=== PATIENT | male | born 1945 | race Caucasian/White ===

== ENCOUNTER 2018-01-01 11:10 | Inpatient (IN) ==
--- NOTE | 2018-01-01 13:56 | Internal Med History&Physical ---
Date of Encounter: 01/01/18 Time of Encounter: 13:49 Internal Medicine - H&P: HPI Chief complaint: diabetic foot ulcer Admitted From: Intrahospital Transfer Plans for Post Hospital Care: Home History of present illness: Mr. Donis is a 72 year old male who presented to [facility] via EMS with fevers and chills. PMHx paraplegia, due to have leg amputated this week, recurrent utis, DM, HTN, cad with hx stent 2007 Pt had concern for uti given hx of same,recent lower abd pain worse from baseline chronic lower abd pain, bladder spasms fever of at home and chills. Urine darker colored than usual and cloudy. He also noted several non healing ulcers on left leg and non healing tibial fracture from August now requiring amputation that was scheduledwith Dr Parker for 01/05. He has been on Augmentin for ulcers since 12/22. Also noted cough x2 weeks with clear sputum. Found to have left heel wound with necrosis, possible supra pubic catheter assoicated uti and LLL pna and transferred to [facility]. He has hx of systolic murmur and on ED physician exam there was concern for heart sounds c/w pericardial rub, bedisde echo done and no pericardial effusion. He received vanco at 1235p, levaquin at 1030 am, bl cxs sent awake, family at bedside. He is feeling better now without fever or chills. No nausea or emesis. Has overall felt "unwell". His lower abd pain appears to be at baseline and he is currently comfortable. no nausea, emesis or diarrhea. supra pubic cath in place, no leakage and with reports some direid "crusted yellow" around the cath this week but was just changed last week. Copious left heel drainage yellow and bloody per . He has no pain due to paraplegia. pulm- cough, clear sputum, denies wheezing, sob, orthopnea or pnd cv- no cp, pressure, palpitations, orthopnea, new le edema, presyncope or syncope Past Med Surg Social Fam HX - Past Medical History Medical history: diabetes, hypertension, myocardial infarction Additional medical history: LOWER BODY PARALYSIS, left tibial fracture August 2017, non lealed, and displaced, left lower ext ulcers Psychiatric history: no psych history - Past Surgical History Surgical History: knee replacement, orthopedic, other Additional surgical history: cardiac stents 2008 - Social History Smoking Status: Never smoker Smokeless Tobacco Status: No Alcohol use: rarely Drug use: none Current living situation: With Family - Family History Mother Adopted: No Family Member Ethnicity: Non- Living Status: Father Adopted: No Family Member Ethnicity: Non- Living Status: Hx Family Cardiac Disorders: No Hx Family Respiratory Disorders: Yes Hx Family Cancer: Yes (metastatic cancer) Hx Family Endocrine Disorder: No Hx Family Neuromuscular Disorders: No Hx Family Neurologic Disorders: No Hx Family HEENT Disorders: No Hx Family Autoimmune Disorders: No Internal Medicine - H&P: Meds Amitriptyline [Elavil] 50 mg PO HS 03/26/16 [History] Aspirin 81 mg PO DAILY 03/26/16 [History] Atorvastatin Calcium [Lipitor] 80 mg PO HS 03/26/16 [History] Clopidogrel [Plavix] 75 mg PO DAILY 03/26/16 [History] Gabapentin [Neurontin] 600 mg PO TID 03/26/16 [History] Metoprolol XL (24 HR) Succ [Toprol Xl] 25 mg PO DAILY 03/26/16 [History] Ranitidine HCl [Acid Lead Sprinkler] 150 mg PO HS 03/26/16 [History] Sertraline [Zoloft] 50 mg PO HS 03/26/16 [History] hydroCHLOROthiazide [Hydrochlorothiazide] 25 mg PO DAILY 03/26/16 [History] metFORMIN [Glucophage] 250 mg PO BIDWM 03/26/16 [History] Calcium Crb,Cit/D3/Min34/Sana [Citracal + Bone Density Tablet] 2 each PO DAILY 11/23/17 [History] Collagenase Oint [Santyl] 1 appl TP DAILY 11/23/17 [History] Famotidine [Pepcid] 20 mg PO DAILY 11/23/17 [History] Potassium Chloride [Klor-Con 10] 10 meq PO DAILY 11/23/17 [History] Allergy/AdvReac Type Severity Reaction Status Date / Time bacitracin Allergy Blister Verified 07/02/16 10:41 [From Neosporin ([id number])] Neomycin Allergy Blister Verified 12/23/17 15:04 [From Neosporin ([id number])] polymyxin B Allergy Blister Verified 07/02/16 10:41 [From Neosporin ([id number])] All Systems PM: A 10-system review of systems was performed and is negative for pertinent findings except as documented above in the HPI. - Constitutional Vitals: Temp Pulse Resp BP Pulse Ox 98.3 F 90 17 112/78 93 01/01/18 13:25 01/01/18 13:25 01/01/18 13:25 01/01/18 13:25 01/01/18 13:25 Exam: General: awake, alert, appears stated age HEENT:EOM intact, pupils equal, round, moist mucus membranes, clear oropharynx Neck: supple, trachea midline Cardiovascular:regular rate and rhythm, normal S1 & S2, +4/6 SM. No JVD. DP pulses intact, trace bl le edema, Lungs:Normal breath sounds, no wheezes, or crackles. Normal respiratory effort on room air Abdomen:Soft, non-tender, non-distended, no rigidity, + bowel sounds, + supra pubic cath in place Neurological: AAOx3, CN grossly intact, paraplegia bl le - suprapubic cath with drak yellow urine, not cloudy no sediment appreciated, no drainage around catheter site Skin: supra pubic cath site skin normal no erythme, warmth or drainage. LLE with big toe ulcer with eschar no surrounding erythema, no appreciable drainage, left heal completely covered with black eschar and posteriorly open wound draining yellow pus and blood with foul odor, surrounding erythema, cannot appreciate fluctuance, left hin with small wounds , eschars intact, bone not appreciated to be protruding, no erythema, warmth or drainage. - Assessment and plan (1) Infected wound Current Visit: Yes Status: Acute Assessment and plan: left heel wound, infected, known ulcer, previously noted to be diabetic and pressure ulcer related he does nto meet for SIRS or sepsis criteria at this time follows with Dr Parker- theodore d/w Dr Garcia and will see pt today -wound cxs -was scheduled for left AKA 01/05/18 -vanc + zosyn + levaquin -bl cxs taken at [facility] -anticipate AKA (2) Diabetes mellitus Current Visit: Yes Status: Chronic Assessment and plan: hold home metformin ssi and accu checks and prn hypoglycemics Qualifiers: Diabetes mellitus type: type 2 Diabetes mellitus nursing home insulin use: without termite treater use Diabetes mellitus complication status: with skin complications Diabetes mellitus complication detail: with foot ulcer Qualified Code(s): E11.621 - Type 2 diabetes mellitus with foot ulcer; L97.509 - Non-pressure chronic ulcer of other part of unspecified foot with unspecified severity (3) Left lower lobe pneumonia Current Visit: No Status: Suspected Assessment and plan: CXR at [facility] with possble LLL pna vs atelectasis, given presentation will treat as such, organism unknown at this time -abx as above, nebs prn, no need for steroids at this time, mild sxs, o2 prn -check legionella and strep ag + sputum cx Qualifiers: Pneumonia type: due to unspecified organism (4) UTI (urinary tract infection) Current Visit: Yes Status: Suspected Assessment and plan: Suspected chronic catheter associated UTI vs colonization -given presentation will treat as infection until proven otherwise -ucx sent at [facility] pending -follows with Dr Ly and will consult to see pt tomorrow -prior ucx available for review was one from June 2015 C freundii and sensitivities reviewed -broad abx as above, vanc, zosyn, levaquin Qualifiers: Urinary tract infection type: catheter-associated UTI Indwelling urinary catheter type: cystostomy catheter Encounter type: initial encounter Qualified Code(s): T83.510A - Infection and inflammatory reaction due to cystostomy catheter, initial encounter; N39.0 - Urinary tract infection, site not specified (5) Paraplegia Current Visit: Yes Status: Chronic Assessment and plan: paralyzed below the waist after a fall accident with vertebral fractures, salma barry, pressure ulcers and sacral osteomyelitis as complications (6) CAD (coronary artery disease) Current Visit: Yes Status: Chronic Assessment and plan: appears stable, no complaints cont home meds Qualifiers: Coronary Disease-Associated Artery/Lesion type: unspecified vessel or lesion type [place] vs. transplanted heart: [place] heart Associated angina: without angina Qualified Code(s): I25.10 - Atherosclerotic heart disease of [place] coronary artery without angina pectoris (7) HTN (hypertension) Current Visit: Yes Status: Chronic Assessment and plan: Normotensive cont to monitor bp trends hold antihypertensives tonight and resume daily Qualifiers: Hypertension type: unspecified Qualified Code(s): I10 - Essential (primary) hypertension - Time Spent With Patient Total time spent is greater than 50% in coordination of care (as documented) at patient's floor/unit and/or counseling patient: Greater than 35 minutes
[2018-01-01] MEDS ORDERED: *HR* Dextrose 50 % in Water (Syg) 50 ML SYRINGE IVP PRN (14:05)
[2018-01-01] MEDS ORDERED: Dextrose Gel 15 GM/37.5 ML TUBE PO PRN ×2 (14:05)
[2018-01-01] MEDS ORDERED: D5% in Water 1,000 ML IVC PRN (14:05)
[2018-01-01] MEDS ORDERED: *HR* OxyCODONE Immed Rel 5 MG TABLET PO PRN (14:41)
[2018-01-01] MEDS ORDERED: traMADol 50 MG TABLET PO PRN (14:41)
[2018-01-01] MEDS ORDERED: Naloxone 0.4 MG/ML INJ IVP PRN (14:41)
[2018-01-01] MEDS ORDERED: Acetaminophen 325 MG TABLET PO PRN (14:41)
[2018-01-01] MEDS ORDERED: Ipratropium/Albuterol Neb 3 ML IH PRN (14:53)
[2018-01-01] MEDS ORDERED: Vancomycin 0 MG in 0.9 % Sodium Chloride 250 ML IVPB SCH (15:00)
[2018-01-01] MEDS ORDERED: Ondansetron 4 MG/2 ML VIAL IVP PRN (15:07)
[2018-01-01] MEDS: Piperacillin/Tazobactam 3.375 GM in 0.9 % Sodium Chloride Mini Bag 100 ML IVPB SCH (16:53)
[2018-01-01] MEDS: Insulin LISPRO 300 UNITS/3 ML VIAL SQ SCH ×2 (17:49→20:30)
[2018-01-01] MEDS: Gabapentin 300 MG CAPSULE PO SCH (20:27)
[2018-01-02] MEDS: Piperacillin/Tazobactam 3.375 GM in 0.9 % Sodium Chloride Mini Bag 100 ML IVPB SCH ×3 (00:56→16:28)
[2018-01-02 04:36] LABS: Basophils % 0.5 %; Eosinophils % 0.3 %; Hematocrit 28.1 % (37.5-50.1); Hemoglobin 8.5 g/dL (12.9-16.9); Immature Granulocytes % 1.3 % (0-4); Lymphocytes % 15.8 %; Mean Corpuscular HGB Conc 30.2 g/dL (31.6-35.5); Mean Corpuscular Hemoglobin 20.6 pg (28.0-33.3); Mean Corpuscular Volume 68.2 fL (83.0-100.0); Mean Platelet Volume 8.4 fL (9.4-12.4); Monocytes # 0.6 K/mcL (0.0-1.3); Monocytes % 10.2 %; Neutrophils # 4.5 K/mcL (1.6-8.9); Platelet Count 511 K/mcL (140-400); Red Blood Count 4.12 M/mcL (4.19-5.50); Red Cell Distribution Width 17.5 % (11.5-14.5); Segmented Neutrophils % 71.9 %
[2018-01-02 04:53] LABS: INR 1.3; Prothrombin Time 14.9 Seconds (9.4-12.1)
[2018-01-02 04:54] LABS: BUN/Creatinine Ratio 23 (6-26); Blood Urea Nitrogen 14 mg/dL (8-23); Calcium 8.6 mg/dL (8.6-10.3); Carbon Dioxide 30 mEq/L (23-29); Chloride 93 mEq/L (98-107); Glucose 132 mg/dL (70-105); Magnesium 1.9 mg/dL (1.6-2.6); Osmolality,Calculated 270 (280-300); Potassium 3.7 mEq/L (3.5-5.1); Sodium 129 mEq/L (136-145); eGFR For Non-African Americans > 60 (> 60)
[2018-01-02 04:55] LABS: Activated Partial Thrombo Time 30.5 Seconds (26.0-36.0)
[2018-01-02 06:09] LABS: Anisocytosis 1+ (Not Present); Hypochromasia Present (Not Present); Microcytosis Present (Not Present); Platelet Estimate Increased (Normal)
[2018-01-02] MEDS: Insulin LISPRO 300 UNITS/3 ML VIAL SQ SCH ×3 (08:02→23:52)
[2018-01-02] MEDS: Levofloxacin 750 MG/150 ML 750 MG/150 ML BAG IVPB SCH (08:13)
[2018-01-02] MEDS: Gabapentin 300 MG CAPSULE PO SCH ×3 (08:15→21:02)
--- NOTE | 2018-01-02 08:21 | General Surgery Consult Note ---
<Aj Haynes S - Last Filed: 01/02/18 08:02> Date of Encounter: 01/02/18 Time of Encounter: 08:02 Assessment and Plan (1) Infected wound Current Visit: Yes Status: Acute Left big toe and heel open wounds with black eschars S/p paraplegia and diabetes mellitus Patient on levofloxacin (day 1), Zosyn (day 2), and Vancomycin (day 2) Wound care following WBC 6.3 Afebrile overnight, temp 99.5 now Scheduled to have left leg above the knee amputation by Dr. Parker on 01/05 Will reschedule surgery for tomorrow (01/03) (2) Urinary tract infection Current Visit: Yes Status: Acute Per primary Has permanent suprapubic catheter Susected catheter associated UTI On zosyn, vanc, and levaquin Urine cultures Qualifiers: Urinary tract infection type: catheter-associated UTI Qualified Code(s): T83.510A - Infection and inflammatory reaction due to cystostomy catheter, initial encounter; N39.0 - Urinary tract infection, site not specified (3) Left lower lobe pneumonia Current Visit: No Status: Suspected Per primary On Levaquin, vanc, and zosyn nebs PRN check legionella and strep pneumo antigen Sputum culture - ngtd Qualifiers: Pneumonia type: due to unspecified organism Qualified Code(s): J18.1 - Lobar pneumonia, unspecified organism (4) Diabetes mellitus Current Visit: Yes Status: Chronic Per primary Held metformin SSI and glucose checks Qualifiers: Diabetes mellitus type: type 2 Diabetes mellitus long line teamster insulin use: without long line teamster use Diabetes mellitus complication status: with skin complications Diabetes mellitus complication detail: with foot ulcer Qualified Code(s): E11.621 - Type 2 diabetes mellitus with foot ulcer; L97.509 - Non-pressure chronic ulcer of other part of unspecified foot with unspecified severity (5) HTN (hypertension) Current Visit: Yes Status: Chronic Per primary Normotensive Qualifiers: Hypertension type: unspecified Qualified Code(s): I10 - Essential (primary) hypertension (6) CAD (coronary artery disease) Current Visit: Yes Status: Chronic Per primary Continue home meds No complaints Qualifiers: Coronary Disease-Associated Artery/Lesion type: unspecified vessel or lesion type [place] vs. transplanted heart: [place] heart Associated angina: without angina Qualified Code(s): I25.10 - Atherosclerotic heart disease of [place] coronary artery without angina pectoris (7) Paraplegia Current Visit: Yes Status: Chronic Per primary Paralyzed below waist after a fall Per notes, patient developed sacral osteomyelitis as a complication History of Present Illness Consult date: 01/02/18 Reason for consult: other (infected diabetic foot ulcer) Requesting physician: Troy Parker History of present illness: 72 year old male with PMHx of paraplegia, DM, HTN, [place] presented to [facility] with fevers and chills. He was transferred to [place] for left heel necrosis, possible suprapubic catheter associated UTI, and LLL PNA. Patient is scheduled to have leg amputated this week on 01/05. He admits to several non- healing ulcers on his left leg and a non-healing tibial fracture in August. He as been taking Augmentin for his ulcers since 12/22. He received vancomycin and zosyn. Patient doing well this morning. Patient states his abdominal pain is back at baseline. He denies fevers/chills, CP, SOB, leg pain (due to paraplegia). Past Med Surg Social Fam HX - Past Medical History Medical history: diabetes, hypertension, myocardial infarction Additional medical history: LOWER BODY PARALYSIS, left tibial fracture August 2017, non lealed, and displaced, left lower ext ulcers Psychiatric history: no psych history - Past Surgical History Surgical History: knee replacement, orthopedic, other Additional surgical history: cardiac stents 2007 - Social History Smoking Status: Never smoker Smokeless Tobacco Status: No Alcohol use: rarely Drug use: none - Family History Father Adopted: No Family Member Ethnicity: Non- Living Status: Hx Family Cardiac Disorders: No Hx Family Respiratory Disorders: Yes Hx Family Cancer: Yes (metastatic cancer) Hx Family Endocrine Disorder: No Hx Family Neuromuscular Disorders: No Hx Family Neurologic Disorders: No Hx Family HEENT Disorders: No Hx Family Autoimmune Disorders: No Mother Adopted: No Family Member Ethnicity: Non- Living Status: Medications and Allergies RX: Amitriptyline [Elavil] 50 mg PO HS 03/26/16 [History] RX: Gabapentin [Neurontin] 1,200 mg PO TID 03/26/16 [History] RX: Metoprolol XL (24 HR) Succ [Toprol Xl] 25 mg PO DAILY 03/26/16 [History] RX: Sertraline [Zoloft] 50 mg PO HS 03/26/16 [History] RX: hydroCHLOROthiazide [Hydrochlorothiazide] 25 mg PO DAILY 03/26/16 [History] RX: metFORMIN [Glucophage] 250 mg PO BIDWM 03/26/16 [History] RX: Potassium Chloride [Klor-Con 10] 10 meq PO DAILY 11/23/17 [History] Aspirin [Adult Aspirin Regimen] 81 mg PO DAILY 01/02/18 [History] Atorvastatin [Lipitor] 80 mg PO HS 01/02/18 [History] RX: Clopidogrel [Plavix] 1 tab PO DAILY 01/02/18 [History] RX: Famotidine [Pepcid] 20 mg PO HS 01/02/18 [History] RX: Nitroglycerin [Nitrostat] 1 tab SL Q5MIN PRN 01/02/18 [History] RX: Omeprazole [PriLOSEC] 40 mg PO DAILY 01/02/18 [History] raNITIdine HCl [Zantac] 150 mg PO HS 01/02/18 [History] Allergy/AdvReac Type Severity Reaction Status Date / Time bacitracin Allergy Blister Verified 07/02/16 10:41 [From Neosporin ([id number])] Neomycin Allergy Blister Verified 12/23/17 15:04 [From Neosporin ([id number]-[id number])] polymyxin B Allergy Blister Verified 07/02/16 10:41 [From Neosporin ([id number])] Review of Systems All systems PM: The remainder of the systems were reviewed and are negative General Surgery Exam Initial Vital Signs Temp Pulse Resp BP Pulse Ox 98.3 F 90 17 112/78 93 01/01/18 13:25 01/01/18 13:25 01/01/18 13:25 01/01/18 13:25 01/01/18 13:25 - General physical appearance well developed - Respiratory normal expansion, normal respiratory effort - Cardiovascular Cardiovascular exam: Present: RRR - Abdomen Abdomen general surgery: Present: bowel sounds present, soft, non tender - Genitourinary Present: other (Suprapubic catheter with dark yellow urine) - Integumentary Integumentary general surgery: Present: other (left foot with ulcer on big toe with surrounding eschar, left heel open wound with surrounding black eschar, foul odor ) - Neurologic Present: other (paraplegic lower extremities bilaterally) - Psychiatric Psychiatric general surgery: Present: A&Ox3, appropriate Exam Initial Vital Signs Temp Pulse Resp BP Pulse Ox 98.3 F 90 17 112/78 93 01/01/18 13:25 01/01/18 13:25 01/01/18 13:25 01/01/18 13:25 01/01/18 13:25 Results - Labs 01/02/18 04:01 01/02/18 04:01 Abnormal lab results RBC 4.12 M/mcL (4.19-5.50) L 01/02/18 04:01 Hgb 8.5 g/dL (12.9-16.9) L 01/02/18 04:01 Hct 28.1 % (37.5-50.1) L 01/02/18 04:01 MCV 68.2 fL (83.0-100.0) L 01/02/18 04:01 MCH 20.6 pg (28.0-33.3) L 01/02/18 04:01 MCHC 30.2 g/dL (31.6-35.5) L 01/02/18 04:01 RDW 17.5 % (11.5-14.5) H 01/02/18 04:01 Plt Count 511 K/mcL (140-400) H 01/02/18 04:01 MPV 8.4 fL (9.4-12.4) L 01/02/18 04:01 Platelet Estimate Increased (Normal) H 01/02/18 04:01 Hypochromasia Present (Not Present) A 01/02/18 04:01 Anisocytosis 1+ (Not Present) A 01/02/18 04:01 Microcytosis Present (Not Present) A 01/02/18 04:01 PT 14.9 Seconds (9.4-12.1) H 01/02/18 04:01 Sodium 129 mEq/L (136-145) L 01/02/18 04:01 Chloride 93 mEq/L (98-107) L 01/02/18 04:01 Carbon Dioxide 30 mEq/L (23-29) H 01/02/18 04:01 Creatinine 0.61 mg/dL (0.70-1.30) L 01/02/18 04:01 Glucose 132 mg/dL (70-105) H 01/02/18 04:01 POC Glucose 148 mg/dL (70-99) H 01/01/18 20:12 Calculated Osmolality 270 (280-300) L 01/02/18 04:01 Diabetes panel 01/02/18 Range/Units 04:01 Sodium 129 L (136-145) mEq/L Potassium 3.7 (3.5-5.1) mEq/L Chloride 93 L (98-107) mEq/L Carbon Dioxide 30 H (23-29) mEq/L BUN 14 (8-23) mg/dL Creatinine 0.61 L (0.70-1.30) mg/dL Glucose 132 H (70-105) mg/dL Calcium 8.6 (8.6-10.3) mg/dL Calcium panel 01/02/18 Range/Units 04:01 Calcium 8.6 (8.6-10.3) mg/dL Pituitary panel 01/02/18 Range/Units 04:01 Sodium 129 L (136-145) mEq/L Potassium 3.7 (3.5-5.1) mEq/L Chloride 93 L (98-107) mEq/L Carbon Dioxide 30 H (23-29) mEq/L BUN 14 (8-23) mg/dL Creatinine 0.61 L (0.70-1.30) mg/dL Glucose 132 H (70-105) mg/dL Calcium 8.6 (8.6-10.3) mg/dL Adrenal panel 01/02/18 Range/Units 04:01 Sodium 129 L (136-145) mEq/L Potassium 3.7 (3.5-5.1) mEq/L Chloride 93 L (98-107) mEq/L Carbon Dioxide 30 H (23-29) mEq/L BUN 14 (8-23) mg/dL Creatinine 0.61 L (0.70-1.30) mg/dL Glucose 132 H (70-105) mg/dL Calcium 8.6 (8.6-10.3) mg/dL All other labs normal. Consult Discharge Plan - Plan Referrals: NONE,PCP [Primary Care Provider] - <Troy Parker - Last Filed: 01/04/18 07:00> Review of Systems All systems PM: The remainder of the systems were reviewed and are negative General Surgery Exam Initial Vital Signs Temp Pulse Resp BP Pulse Ox 98.3 F 90 17 112/78 93 01/01/18 13:25 01/01/18 13:25 01/01/18 13:25 01/01/18 13:25 01/01/18 13:25 Exam Initial Vital Signs Temp Pulse Resp BP Pulse Ox 98.3 F 90 17 112/78 93 01/01/18 13:25 01/01/18 13:25 01/01/18 13:25 01/01/18 13:25 01/01/18 13:25 Results - Labs 01/04/18 04:07 01/04/18 04:07 Abnormal lab results RBC 3.48 M/mcL (4.19-5.50) L 01/04/18 04:07 Hgb 7.2 g/dL (12.9-16.9) L 01/04/18 04:07 Hct 23.6 % (37.5-50.1) L 01/04/18 04:07 MCV 67.8 fL (83.0-100.0) L 01/04/18 04:07 MCH 20.7 pg (28.0-33.3) L 01/04/18 04:07 MCHC 30.5 g/dL (31.6-35.5) L 01/04/18 04:07 RDW 18.1 % (11.5-14.5) H 01/04/18 04:07 Plt Count 427 K/mcL (140-400) H 01/04/18 04:07 MPV 8.5 fL (9.4-12.4) L 01/04/18 04:07 Neutrophils # 9.2 K/mcL (1.6-8.9) H 01/04/18 04:07 Platelet Estimate Increased (Normal) H 01/04/18 04:07 Hypochromasia Present (Not Present) A 01/02/18 04:01 Anisocytosis 2+ (Not Present) A 01/04/18 04:07 Microcytosis Present (Not Present) A 01/04/18 04:07 PT 14.9 Seconds (9.4-12.1) H 01/02/18 04:01 Sodium 132 mEq/L (136-145) L 01/04/18 04:07 Creatinine 1.41 mg/dL (0.70-1.30) H 01/04/18 04:07 Est GFR (Non-Af Amer) 49 (> 60) L 01/04/18 04:07 Glucose 180 mg/dL (70-105) H 01/04/18 04:07 POC Glucose 256 mg/dL (70-99) H 01/03/18 20:11 Hemoglobin A1c 7.1 % (-5.6) H 01/01/18 14:47 Calcium 7.8 mg/dL (8.6-10.3) L 01/04/18 04:07 Iron < 10 mcg/dL (65-175) L 01/02/18 16:59 Transferrin 167 mg/dL (203-362) L 01/02/18 16:59 Vancomycin Trough 31 mcg/mL (5-10) H 01/03/18 19:00 Diabetes panel 01/04/18 Range/Units 04:07 Sodium 132 L (136-145) mEq/L Potassium 3.7 (3.5-5.1) mEq/L Chloride 98 (98-107) mEq/L Carbon Dioxide 27 (23-29) mEq/L BUN 19 (8-23) mg/dL Creatinine 1.41 H (0.70-1.30) mg/dL Glucose 180 H (70-105) mg/dL Calcium 7.8 L (8.6-10.3) mg/dL Calcium panel 01/04/18 Range/Units 04:07 Calcium 7.8 L (8.6-10.3) mg/dL Pituitary panel 01/04/18 Range/Units 04:07 Sodium 132 L (136-145) mEq/L Potassium 3.7 (3.5-5.1) mEq/L Chloride 98 (98-107) mEq/L Carbon Dioxide 27 (23-29) mEq/L BUN 19 (8-23) mg/dL Creatinine 1.41 H (0.70-1.30) mg/dL Glucose 180 H (70-105) mg/dL Calcium 7.8 L (8.6-10.3) mg/dL Adrenal panel 01/04/18 Range/Units 04:07 Sodium 132 L (136-145) mEq/L Potassium 3.7 (3.5-5.1) mEq/L Chloride 98 (98-107) mEq/L Carbon Dioxide 27 (23-29) mEq/L BUN 19 (8-23) mg/dL Creatinine 1.41 H (0.70-1.30) mg/dL Glucose 180 H (70-105) mg/dL Calcium 7.8 L (8.6-10.3) mg/dL All other labs normal. - Attending Attestation I examined this patient and my medical decision-making was reviewed with the Resident Physician. I agree with the documented findings, disposition and treatment plan as described except to the extent set forth below. The patient is seen and evaluated with the resident on morning rounds. The patient has an infected foot plus nonunion of tibial fibular fracture. He is nonambulatory and paraplegic. I have recommended left above-knee amputation and we will proceed tomorrow after appropriate antibiotic dosing Troy Parker MD FACS
[2018-01-02] MEDS ORDERED: Aspirin 81 MG TAB.CHEW PO SCH (09:00)
--- NOTE | 2018-01-02 09:14 | Internal Med Progress Note ---
<Africa Mendoza - Last Filed: 01/02/18 13:57> Hospitalist Progress Note - Exam Vitals: Temp Pulse Resp BP Pulse Ox 98.2 F 96 15 120/56 94 01/02/18 13:00 01/02/18 13:00 01/02/18 13:00 01/02/18 13:00 01/02/18 13:00 - Assessment and Plan (1) UTI (urinary tract infection) Current Visit: Yes Status: Suspected (2) Left lower lobe pneumonia Current Visit: No Status: Suspected (3) Infected wound Current Visit: Yes Status: Acute (4) Diabetes mellitus Current Visit: Yes Status: Chronic (5) HTN (hypertension) Current Visit: Yes Status: Chronic (6) CAD (coronary artery disease) Current Visit: Yes Status: Chronic (7) Paraplegia Current Visit: Yes Status: Chronic (8) Anemia Current Visit: Yes Status: Acute - Time Spent with Patient Total time spent is greater than 50% in coordination of care (as documented) at patient's floor/unit and/or counseling patient: Internal Medicine: Result - Labs CBC & Chem 7: 01/02/18 04:01 01/02/18 04:01 Labs: Short CBC 01/02/18 Range/Units 04:01 WBC 6.3 (4.3-11.1) K/mcL Hgb 8.5 L (12.9-16.9) g/dL Hct 28.1 L (37.5-50.1) % Plt Count 511 H (140-400) K/mcL Neutrophils # 4.5 (1.6-8.9) K/mcL BMP 01/02/18 04:01 Sodium 129 L Potassium 3.7 Chloride 93 L Carbon Dioxide 30 H BUN 14 Creatinine 0.61 L Glucose 132 H Calcium 8.6 - ABG Interpretation ABG results: PT/INR, D-dimer PT 14.9 Seconds (9.4-12.1) H 01/02/18 04:01 - Impressions Impressions Foot X-Ray 01/02/18 08:55 IMPRESSION: 1. There appears to be a wound along the hindfoot with irregularity of the posterior calcaneus. Findings could represent osteomyelitis. 2. A prior fractures seen of the distal fibula with partial callus formation. An intramedullary jose is seen within the distal tibia. 3. Osteopenia. 4. Scattered degenerative changes. D/ / Austin Martin MD / Austin Martin MD Interpreting Provider: Austin Martin MD Consult Discharge Plan - Plan Referrals: NONE,PCP [Primary Care Provider] - - Attending Attestation I examined this patient and my medical decision-making was reviewed with the Resident Physician Dr Acuña. I agree with the documented findings, disposition and treatment plan as described except to the extent set forth below/addl details below. Mr. Donis is a 72 year old male who presented to [facility] via EMS with fevers and chills. PMHx paraplegia, due to have leg amputated this week, recurrent utis, DM, HTN, cad with hx stent 2007. Dx with left heel infected ulcer, possible pna and possible supra pubic cath associated uti. Being followed by Surgery. awake, at bedside. no fevers or chills overnight. overall feeling less fatigued. no pain. no nausea or emesis. eating and drinking without difficulty. General: awake, alert, appears stated age Cardiovascular:regular rate and rhythm, normal S1 & S2, +4/6 SM. trace bl le edema, Lungs:Normal breath sounds, no wheezes, or crackles. Normal respiratory effort on room air Abdomen:Soft, non-tender, non-distended, no rigidity, + bowel sounds, + supra pubic cath in place Neurological: AAOx3, paraplegia bl le Skin: supra pubic cath site skin normal no erythma, warmth or drainage. LLE with big toe ulcer with eschar no surrounding erythema, no appreciable drainage, left heel dressing clean/dry/intact left heel wound, infected, known ulcer, previously noted to be diabetic and pressure ulcer related he does not meet for SIRS or sepsis criteria at this time follows with Dr Parker- surg following -wound cxs -vanc + zosyn + levaquin -bl cxs taken at [place] -anticipate AKA tomorrow, hold asa + plavix, hold heparin vte ppx today DM-hold home metformin, ssi and accu checks LLL Possible Pna CXR at [facility] with possble LLL pna vs atelectasis, given presentation will treat as such, organism unknown at this time -abx as above, nebs prn, no need for steroids at this time, mild sxs, o2 prn -legionella and strep ag neg, sputum cx did not meet criteria for cx Suspected chronic catheter associated UTI vs colonization -given presentation will treat as infection until proven otherwise -ucx sent at [facility] pending on admit and now not showing in [employer], will have to re send cx which is unfortunate given he has received abx -follows with Dr Sanchez and will consult post operatively and once Ucx resu lts as needed -prior ucx available for review was one from June 2015 C freundii and sen sitivities reviewed -broad abx as above, vanc, zosyn, levaquin HTN- his home bp meds were held on admit as had not yet been confirmed and BPs were normotensive. resume BB in prep for OR, cont to monoitor bp trends and add back hctz as needed Acute on Chronic anemia suspected to be 2/2 bleeding from foot wound on asa + plavix hgb [id number], 9.5 at [facility] and 8.5 today -holding asa + plavix -no pharm vte ppx, scd to right leg -cont to monitor hgb and transfuse hgb <7 -cont to monitor for other signs of bleeding, at this time there are none <Arjun Acuña - Last Filed: 01/02/18 16:26> Hospitalist Progress Note - Encounter Date of Encounter: 01/02/18 Time of Encounter: 09:50 - Subjective Interval History: Laying comfortably in bed. He complains of a suprapubic pressure today and says has not had BM in 2 days. He denies subjective fever/chills, cough, sob, pleuritic chest pain. - Exam Vitals: Temp Pulse Resp BP Pulse Ox 99.5 F 95 20 126/87 92 01/02/18 04:56 01/02/18 04:56 01/02/18 04:56 01/02/18 04:56 01/02/18 04:56 Exam: General: Awake, alert, appears stated age, no signs of acute distress or toxicity HEENT: EOMi, pupils equal/round, mucus membranes moist, neck supple and without lymphadenopathy Cardiac: RRR, S1/S2 present, 4/6 systolic ejection murmur, no heaves, thrills appreciated, radial pulse 2+ bilaterally, normal capillary refill, no peripheral edema Chest: Symmetric chest rise, non tender Pulmonary: Good air movement, normal resp effort, no wheezes, rhonchi, rales appreciated Abdominal: Soft, tender to palpation suprapubically, no distention, guarding, rebound tenderness, or rigidity Neuro: AOx3, CN grossly intact Psych: Normal affect Integumentary: [place], warm, dry, L foot bandaged and draining purulent fluid through bandage, 2 small black eschar on L great toe and L plantar surface, developing ulcer R lateral lower leg. - Assessment and Plan (1) Infected wound Current Visit: Yes Status: Acute Assessment and Plan: Infected ulcer L heal. Noted to be diabetic/pressure ulcer previously -Dr Parker follows -Wound care following -Blood cultures x2 ngtd -Tmax 99.5, wbc 6.3 -L AKA tomorrow via [place] -On vanc, zosyn, levaquin -NPO at midnight for AKA tomorrow (2) UTI (urinary tract infection) Current Visit: Yes Status: Suspected Assessment and Plan: Suspected chronic catheter associated UTI vs colonization -Suprapubic catheter 2/2 paraplegia -On vanc, zosyn, levaquin -[place] urine culture will need to be resent today. -Urology follows and sees Dr Sanchez, will consult after culture resulted. (3) Left lower lobe pneumonia Current Visit: No Status: Suspected Assessment and Plan: Cxr at [place] possible LLL pneumonia vs atelectesis -No cough, sob -Sputum culture from 01/01 inadequate for culture, will repeat sample today -Urine legionella antigen and S. pneumo neg -BC x2 neg -Tmax 99.5, wbc 6.3 -On vanc, zosyn, levaquin (4) Anemia Current Visit: Yes Status: Acute Assessment and Plan: Hgb 8.5 today. -L heal wound has been bleeding over time. -Hgb trending down last few months from 11.6 (06/29), 11.4 (10/29), 10.1 (12/23/17), and 9.5 yesterday. -MCV 68. -Iron profile today. -Will monitor. (5) Diabetes mellitus Current Visit: Yes Status: Chronic Assessment and Plan: Holding home metformin. -SSI and accu cheks (6) HTN (hypertension) Current Visit: Yes Status: Chronic Assessment and Plan: Normotensive, 122/67 most recent. -Continue to trend BP and add home antihypertensives as indicated. (7) CAD (coronary artery disease) Current Visit: Yes Status: Chronic Assessment and Plan: Stable. No ischemic symptom complaints. (8) Paraplegia Current Visit: Yes Status: Chronic Assessment and Plan: Paralyzed below waist after fall in 2007. DVT Prophylaxis: Mechanical - Time Spent with Patient Total time spent is greater than 50% in coordination of care (as documented) at patient's floor/unit and/or counseling patient: 25 - 35 minutes Plan of Care Discussed with: family Internal Medicine: Result - Labs CBC & Chem 7: 01/02/18 04:01 01/02/18 04:01 Labs: Short CBC 01/02/18 Range/Units 04:01 WBC 6.3 (4.3-11.1) K/mcL Hgb 8.5 L (12.9-16.9) g/dL Hct 28.1 L (37.5-50.1) % Plt Count 511 H (140-400) K/mcL Neutrophils # 4.5 (1.6-8.9) K/mcL BMP 01/02/18 04:01 Sodium 129 L Potassium 3.7 Chloride 93 L Carbon Dioxide 30 H BUN 14 Creatinine 0.61 L Glucose 132 H Calcium 8.6 - ABG Interpretation ABG results: PT/INR, D-dimer PT 14.9 Seconds (9.4-12.1) H 01/02/18 04:01 <Africa Mendoza - Last Filed: 01/02/18 13:57> (1) UTI (urinary tract infection) Qualifiers: Urinary tract infection type: catheter-associated UTI Indwelling urinary catheter type: cystostomy catheter Encounter type: initial encounter Qualified Code(s): T83.510A - Infection and inflammatory reaction due to cystostomy catheter, initial encounter; N39.0 - Urinary tract infection, site not specified (4) Diabetes mellitus Qualifiers: Diabetes mellitus type: type 2 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 transplanted heart: [place] heart Associated angina: without angina Qualified Code(s): I25.10 - Atherosclerotic heart disease of [place] coronary artery without angina pectoris <Arjun Acuña - Last Filed: 01/02/18 16:26> (2) UTI (urinary tract infection) Qualifiers: Urinary tract infection type: catheter-associated UTI Indwelling urinary catheter type: cystostomy catheter Encounter type: initial encounter Qualified Code(s): T83.510A - Infection and inflammatory reaction due to cystostomy catheter, initial encounter; N39.0 - Urinary tract infection, site not specified (4) Anemia Qualifiers: Anemia type: unspecified type Qualified Code(s): D64.9 - Anemia, unspecified (5) Diabetes mellitus Qualifiers: Diabetes mellitus type: type 2 Diabetes mellitus skilled nursing insulin use: without skilled nursing use Diabetes mellitus complication status: with skin complications Diabetes mellitus complication detail: with foot ulcer Qualified Code(s): E11.621 - Type 2 diabetes mellitus with foot ulcer; L97.509 - Non- pressure chronic ulcer of other part of unspecified foot with unspecified severity (6) HTN (hypertension) Qualifiers: Hypertension type: unspecified Qualified Code(s): I10 - Essential (primary) hypertension (7) CAD (coronary artery disease) Qualifiers: Coronary Disease-Associated Artery/Lesion type: unspecified vessel or lesion type [place] vs. transplanted heart: [place] heart Associated angina: without angina Qualified Code(s): I25.10 - Atherosclerotic heart disease of [place] coronary artery without angina pectoris
[2018-01-02 11:16] LABS: Estimated Average Glucose 157 mg/dl; Hemoglobin A1C 7.1 %
[2018-01-02] MEDS ORDERED: Metoprolol XL (24 HR) Succ 25 MG TAB.ER.24H PO ONE (14:10)
[2018-01-02 17:52] LABS: Iron < 10 mcg/dL (65-175); Transferrin 167 mg/dL (203-362)
[2018-01-02] MEDS ORDERED: Famotidine 20 MG TABLET PO SCH (21:00)
[2018-01-03] MEDS: Piperacillin/Tazobactam 3.375 GM in 0.9 % Sodium Chloride Mini Bag 100 ML IVPB SCH ×3 (00:03→22:03)
--- NOTE | 2018-01-03 03:12 | Anesthesia Evaluation PreOp ---
<Sivan Tao - Last Filed: 01/03/18 03:10> Date of Encounter: 01/03/18 Time of Encounter: 03:10 - Past History Planned Operation: Left AKA Cardiac History: VT, HTN, Hyperlipidemia, Cardiac Stent (2007, ST CHANGES DURING STRESS 2007, MULTIPLE STENTS, 2015: NORMAL EF, MILD AORTIC STENOSIS)) Pulmonary History: Denies Any Significant HX FEATHER BALER History: Other (paraplegic) Other Medical History: Diabetes Type II Anesthesia History: No Prior Anesthetic Complications, Past Anesthesia (L tibia IM nail, knee replacement) Alcohol Use: rarely Drug use: none Medications and Allergies Amitriptyline [Elavil] 50 mg PO HS 03/26/16 [History] Gabapentin [Neurontin] 1,200 mg PO TID 03/26/16 [History] Metoprolol XL (24 HR) Succ [Toprol Xl] 25 mg PO DAILY 03/26/16 [History] Sertraline [Zoloft] 50 mg PO HS 03/26/16 [History] hydroCHLOROthiazide [Hydrochlorothiazide] 25 mg PO DAILY 03/26/16 [History] metFORMIN [Glucophage] 250 mg PO BIDWM 03/26/16 [History] Potassium Chloride [Klor-Con 10] 10 meq PO DAILY 11/23/17 [History] Aspirin [Adult Aspirin Regimen] 81 mg PO DAILY 01/02/18 [History] Atorvastatin [Lipitor] 80 mg PO HS 01/02/18 [History] Clopidogrel [Plavix] 1 tab PO DAILY 01/02/18 [History] Famotidine [Pepcid] 20 mg PO HS 01/02/18 [History] Nitroglycerin [Nitrostat] 1 tab SL Q5MIN PRN 01/02/18 [History] Omeprazole [PriLOSEC] 40 mg PO DAILY 01/02/18 [History] raNITIdine HCl [Zantac] 150 mg PO HS 01/02/18 [History] Allergy/AdvReac Type Severity Reaction Status Date / Time bacitracin Allergy Blister Verified 07/02/16 10:41 [From Neosporin ([id number])] Neomycin Allergy Blister Verified 12/23/17 15:04 [From Neosporin ([id number])] polymyxin B Allergy Blister Verified 07/02/16 10:41 [From Neosporin ([id number])] - Meds/Allergy Pre-op Review Medications Reviewed: Yes Allergies Reviewed: Yes Beta Blockers on Current Med List: Yes Anesthesia Results - Labs 01/02/18 04:01 01/02/18 04:01 - Imaging EKG: report reviewed (SR) Anesthesia Exam Vital Signs/O2 Sat, Most Current Temp Pulse Resp BP Pulse Ox 97.9 F 78 15 126/69 94 01/03/18 00:30 01/03/18 00:30 01/03/18 00:30 01/03/18 00:30 01/03/18 00:30 Weight: 116kg Anesthesia Assess/Plan ASA Score: 3 Modified All Scale for Level of Consciousness: Cooperative, oriented, and tranquil Anesthetic Plan: General Monitoring Plan: Standard Monitors Recovery Plan: PACU <Karan Dacosta - Last Filed: 01/03/18 14:26> - Meds/Allergy Pre-op Review If Beta Blockers taken, Date/Time (Last Dose taken): 07:52 01/03/18 Anesthesia Results - Labs 01/03/18 02:59 01/03/18 02:59 Anesthesia Exam Vital Signs/O2 Sat, Most Current Temp Pulse Resp BP Pulse Ox 98.4 F 75 16 104/59 94 01/03/18 11:45 01/03/18 11:45 01/03/18 11:45 01/03/18 11:45 01/03/18 11:45 NPO (# of Hours): > 8 hrs Pain Scale: 0 Pain Scale Used: Numeric (1 - 10) - HEENT Pupil (Motor): Pupils equal, EOMI Mallampati: II Teeth: Normal Oral Opening: Greater than 3 - FEATHER BALER LOC: Oriented, Confused FEATHER BALER Motor: Normal RUE, Normal LUE, Normal RLE, Normal LLE, Normal Face FEATHER BALER Sensory: Normal: RUE, LUE, RLE, LLE, Face - Cardiac Rhythm: Regular Murmur: None JVD: No Carotid Bruit: No - Pulmonary Breath Sounds: bilateral Clear Respiratory Effort: Symmetrical
[2018-01-03 03:14] LABS: Basophils % 0.4 %; Eosinophils # 0.2 K/mcL (0.0-0.6); Eosinophils % 2.4 %; Hematocrit 26.4 % (37.5-50.1); Hemoglobin 8.2 g/dL (12.9-16.9); Immature Granulocytes % 0.9 % (0-4); Lymphocytes % 12.7 %; Mean Corpuscular HGB Conc 31.1 g/dL (31.6-35.5); Mean Corpuscular Volume 67.7 fL (83.0-100.0); Mean Platelet Volume 8.2 fL (9.4-12.4); Monocytes # 1.2 K/mcL (0.0-1.3); Monocytes % 15.5 %; Platelet Count 437 K/mcL (140-400); Red Cell Distribution Width 17.8 % (11.5-14.5); Segmented Neutrophils % 68.1 %
[2018-01-03 03:17] LABS: Neutrophils # 5.2 K/mcL (1.6-8.9)
[2018-01-03 03:33] LABS: BUN/Creatinine Ratio 18 (6-26); Blood Urea Nitrogen 14 mg/dL (8-23); Carbon Dioxide 28 mEq/L (23-29); Chloride 97 mEq/L (98-107); Glucose 132 mg/dL (70-105); Osmolality,Calculated 276 (280-300); Potassium 3.3 mEq/L (3.5-5.1); Sodium 132 mEq/L (136-145); eGFR For Non-African Americans > 60 (> 60)
[2018-01-03 03:34] LABS: Microcytosis Present (Not Present)
[2018-01-03] MEDS: Insulin LISPRO 300 UNITS/3 ML VIAL SQ SCH ×5 (03:46→22:04)
--- NOTE | 2018-01-03 07:21 | Internal Med Progress Note ---
<Arjun Acuña - Last Filed: 01/03/18 12:09> Hospitalist Progress Note - Encounter Date of Encounter: 01/03/18 Time of Encounter: 07:20 - Subjective Interval History: Laying comfortably in bed. Suprapubic pressure from yesterday resolved. L AKA this afternoon. He denies subjective fever/chills, cough, sob, pleuritic chest pain. - Exam Vitals: Temp Pulse Resp BP Pulse Ox 97.8 F 76 17 101/76 96 01/03/18 05:34 01/03/18 05:34 01/03/18 05:34 01/03/18 05:34 01/03/18 05:34 Exam: General: Awake, alert, appears stated age, no signs of acute distress or toxicity HEENT: EOMi, pupils equal/round, mucus membranes moist. Cardiac: RRR, S1/S2 present, 4/6 systolic ejection murmur, no heaves, thrills appreciated, radial pulse 2+ bilaterally, normal capillary refill, no peripheral edema Chest: Symmetric chest rise, non tender Pulmonary: Good air movement, normal resp effort, no wheezes, rhonchi, rales appreciated Abdominal: Soft, non-tender, no distention, guarding, rebound tenderness, or rigidity Neuro: AOx3, CN grossly intact Psych: Normal affect Integumentary: [place], warm, dry, L foot bandaged and draining purulent fluid through bandage, 2 small black eschar on L great toe and L plantar surface, developing ulcer R lateral lower leg. - Assessment and Plan (1) Infected wound Current Visit: Yes Status: Acute Assessment and Plan: Infected ulcer L heal. Noted to be diabetic/pressure ulcer previously -Dr Parker follows -Wound care following -Blood cultures x2 ngtd -Tmax 100.4 overnight, wbc 7.6 -L AKA today with Dr Parker -On vanc, zosyn, levaquin (2) UTI (urinary tract infection) Current Visit: Yes Status: Suspected Assessment and Plan: Suspected chronic catheter associated UTI vs colonization -Suprapubic catheter 2/2 paraplegia -On vanc, zosyn, levaquin -[place] urine culture will need to be resent today. -Urology follows and sees Dr Sanchez, will consult after culture resulted. (3) Left lower lobe pneumonia Current Visit: No Status: Suspected Assessment and Plan: Cxr at [place] possible LLL pneumonia vs atelectesis -No cough, sob -Sputum culture from 01/01 inadequate for culture -Urine legionella antigen and S. pneumo neg -BC x2 neg -Awaiting repeat sputum culture -Tmax 100.4 overnight, wbc 7.6 -On vanc, zosyn, levaquin (4) Diabetes mellitus Current Visit: Yes Status: Chronic Assessment and Plan: Holding home metformin. -SSI and accu cheks (5) HTN (hypertension) Current Visit: Yes Status: Chronic Assessment and Plan: Normotensive, 128/67 most recent. -Continue to trend BP and add home antihypertensives as indicated. (6) CAD (coronary artery disease) Current Visit: Yes Status: Chronic Assessment and Plan: Stable. No ischemic symptom complaints. (7) Paraplegia Current Visit: Yes Status: Chronic Assessment and Plan: Paralyzed below waist after fall in 2007. (8) Anemia Current Visit: Yes Status: Acute Assessment and Plan: Hgb 8.2 today. -L heal wound has been bleeding over time. -Hgb trending down last few months from 11.6 (06/29), 11.4 (10/29), 10.1 (12/23/17), and 9.5 (01/01/18), and 8.5 yst. -MCV 67.7. -Denies any blood in stool -Iron profile, Fe <10, transferrin 167 -Type and screen now. -Will monitor and transfuse hgb < 8. - Time Spent with Patient Total time spent is greater than 50% in coordination of care (as documented) at patient's floor/unit and/or counseling patient: less than 15 minutes Plan of Care Discussed with: patient Internal Medicine: Result - Labs CBC & Chem 7: 01/03/18 02:59 01/03/18 02:59 Labs: Short CBC 01/03/18 Range/Units 02:59 WBC 7.6 (4.3-11.1) K/mcL Hgb 8.2 L (12.9-16.9) g/dL Hct 26.4 L (37.5-50.1) % Plt Count 437 H (140-400) K/mcL Neutrophils # 5.2 (1.6-8.9) K/mcL BMP 01/03/18 02:59 Sodium 132 L Potassium 3.3 L Chloride 97 L Carbon Dioxide 28 BUN 14 Creatinine 0.77 Glucose 132 H Calcium 8.0 L - ABG Interpretation ABG results: PT/INR, D-dimer PT 14.9 Seconds (9.4-12.1) H 01/02/18 04:01 - Impressions Impressions Foot X-Ray 01/02/18 08:55 IMPRESSION: 1. There appears to be a wound along the hindfoot with irregularity of the posterior calcaneus. Findings could represent osteomyelitis. 2. A prior fractures seen of the distal fibula with partial callus formation. An intramedullary jose is seen within the distal tibia. 3. Osteopenia. 4. Scattered degenerative changes. D/ / Austin Martin MD / Austin Martin MD Interpreting Provider: Austni Martin MD Consult Discharge Plan - Plan Referrals: NONE,PCP [Primary Care Provider] - <Maykel Bacon - Last Filed: 01/03/18 14:16> Hospitalist Progress Note - Exam Vitals: Temp Pulse Resp BP Pulse Ox 98.4 F 75 16 104/59 94 01/03/18 11:45 01/03/18 11:45 01/03/18 11:45 01/03/18 11:45 01/03/18 11:45 - Assessment and Plan (1) Pressure ulcer of left ankle, stage 4 Current Visit: Yes Status: Acute (2) UTI (urinary tract infection) Current Visit: Yes Status: Ruled-out (3) Left lower lobe pneumonia Current Visit: No Status: Suspected (4) Infected wound Current Visit: Yes Status: Acute (5) Diabetes mellitus Current Visit: Yes Status: Chronic (6) HTN (hypertension) Current Visit: Yes Status: Chronic (7) CAD (coronary artery disease) Current Visit: Yes Status: Chronic (8) Paraplegia Current Visit: Yes Status: Chronic (9) Anemia Current Visit: Yes Status: Suspected - Time Spent with Patient Total time spent is greater than 50% in coordination of care (as documented) at patient's floor/unit and/or counseling patient: Internal Medicine: Result - Labs CBC & Chem 7: 01/03/18 02:59 01/03/18 02:59 Labs: Short CBC 01/03/18 Range/Units 02:59 WBC 7.6 (4.3-11.1) K/mcL Hgb 8.2 L (12.9-16.9) g/dL Hct 26.4 L (37.5-50.1) % Plt Count 437 H (140-400) K/mcL Neutrophils # 5.2 (1.6-8.9) K/mcL BMP 01/03/18 02:59 Sodium 132 L Potassium 3.3 L Chloride 97 L Carbon Dioxide 28 BUN 14 Creatinine 0.77 Glucose 132 H Calcium 8.0 L - ABG Interpretation ABG results: PT/INR, D-dimer PT 14.9 Seconds (9.4-12.1) H 01/02/18 04:01 - Attending Attestation I examined this patient and my medical decision-making was reviewed with the Resident Physician on 01/03/18. I agree with the documented findings, disposition and treatment plan as described except to the extent set forth below. Mr Donis is currently admitted for foot ulcer L leg. He is to have AKA today. He remains moderate to high risk due to potential for worsening clinical status. Mr Donis is awaiting surgery. No fever or chills. Concerned about ulcer on R leg. No CP or SOB. Family at bedside. Exam alert comfortable at rest Mucus membranes dry Heart not tachy No wheeze abd nontender Dressing intact I/P 1. Infected foot ulcer - for AKA today 2. Pressure ulcer R foot 3. Paraplegia Further diagnoses and plan as above. <Arjun Acuña - Last Filed: 01/03/18 12:09> (2) UTI (urinary tract infection) Qualifiers: Urinary tract infection type: catheter-associated UTI Indwelling urinary catheter type: cystostomy catheter Encounter type: initial encounter Qualified Code(s): T83.510A - Infection and inflammatory reaction due to cystostomy catheter, initial encounter; N39.0 - Urinary tract infection, site not specified (4) Diabetes mellitus Qualifiers: Diabetes mellitus type: type 2 Diabetes mellitus bed bug exterminator insulin use: without skilled nursing use Diabetes mellitus complication status: with skin complications Diabetes mellitus complication detail: with foot ulcer Qualified Code(s): E11.621 - Type 2 diabetes mellitus with foot ulcer; L97.509 - Non-pressure chronic ulcer of other part of unspecified foot with unspecified severity (5) HTN (hypertension) Qualifiers: Hypertension type: unspecified Qualified Code(s): I10 - Essential (primary) hypertension (6) CAD (coronary artery disease) Qualifiers: Coronary Disease-Associated Artery/Lesion type: unspecified vessel or lesion type [place] vs. transplanted heart: [place] heart Associated angina: without angina Qualified Code(s): I25.10 - Atherosclerotic heart disease of [place] coronary artery without angina pectoris (8) Anemia Qualifiers: Anemia type: unspecified type Qualified Code(s): D64.9 - Anemia, unspecified <Maykel Bacon - Last Filed: 01/03/18 14:16> (2) UTI (urinary tract infection) Qualifiers: Urinary tract infection type: catheter-associated UTI Indwelling urinary catheter type: cystostomy catheter Encounter type: initial encounter Qualified Code(s): T83.510A - Infection and inflammatory reaction due to cystostomy catheter, initial encounter; N39.0 - Urinary tract infection, site not specified (3) Left lower lobe pneumonia Qualifiers: Pneumonia type: due to unspecified organism (5) Diabetes mellitus Qualifiers: Diabetes mellitus type: type 2 Diabetes mellitus skilled nursing insulin use: without skilled nursing use Diabetes mellitus complication status: with skin complications Diabetes mellitus complication detail: with foot ulcer Qualified Code(s): E11.621 - Type 2 diabetes mellitus with foot ulcer; L97.509 - Non- pressure chronic ulcer of other part of unspecified foot with unspecified severity (6) HTN (hypertension) Qualifiers: Hypertension type: essential hypertension Qualified Code(s): I10 - Essential (primary) hypertension (7) CAD (coronary artery disease) Qualifiers: Coronary Disease-Associated Artery/Lesion type: [place] artery [place] vs. transplanted heart: [place] heart Associated angina: without angina Qualified Code(s): I25.10 - Atherosclerotic heart disease of [place] coronary artery withou t angina pectoris (9) Anemia Qualifiers: Anemia type: iron deficiency Iron deficiency anemia type: chronic blood loss Qualified Code(s): D50.0 - Iron deficiency anemia secondary to blood loss (chronic)
[2018-01-03] MEDS: Gabapentin 300 MG CAPSULE PO SCH ×2 (07:52→21:56)
[2018-01-03] MEDS: Levofloxacin 750 MG/150 ML 750 MG/150 ML BAG IVPB SCH (07:52)
[2018-01-03] MEDS ORDERED: Metoprolol XL (24 HR) Succ 25 MG TAB.ER.24H PO SCH (09:00)
[2018-01-03] MEDS ORDERED: Lidocaine -MPF 4% 5 ML AMPUL ONE (12:58)
[2018-01-03] MEDS ORDERED: *HR* Propofol 200 MG/20 ML VIAL IVP ONE (13:24)
[2018-01-03] MEDS ORDERED: Ondansetron 4 MG/2 ML VIAL ONE (13:24)
[2018-01-03] MEDS ORDERED: Lidocaine -MPF 2% 2 ML VIAL ONE (13:24)
[2018-01-03] MEDS ORDERED: *HR* FentaNYL (PF) 100 MCG/2 ML VIAL ONE ×2 (13:24→14:44)
[2018-01-03] MEDS ORDERED: Dexamethasone 4 MG/ML VIAL ONE (13:24)
[2018-01-03] MEDS ORDERED: *HR* Succinylcholine 200 MG/10 ML VIAL IVP ONE (13:26)
[2018-01-03] MEDS ORDERED: EPHEDrine 50 MG/ML VIAL ONE (14:47)
[2018-01-03] MEDS ORDERED: *HR* PHENYLEPHRINE 1,000 MCG/10 ML SYRINGE IVP ONE (14:47)
[2018-01-03] MEDS ORDERED: Gabapentin 300 MG CAPSULE PO SCH (15:00)
[2018-01-03] MEDS ORDERED: Albuterol 2.5 MG/3 ML NEBULIZER IH ONE (15:01)
[2018-01-03] MEDS ORDERED: *HR* Promethazine 25 MG/ML VIAL IVP PRN ×2 (15:01→16:44)
[2018-01-03] MEDS ORDERED: Ondansetron 4 MG/2 ML VIAL IVP ONE ×2 (15:01→16:44)
[2018-01-03] MEDS ORDERED: Naloxone 0.4 MG/ML INJ IVP PRN ×3 (15:01→16:44)
[2018-01-03] MEDS ORDERED: *HR* Meperidine 25 MG/ML SYRINGE IVP PRN ×2 (15:01→16:44)
[2018-01-03] MEDS ORDERED: *HR* HYDROmorphone (PF) 1 MG/ML SYRINGE IVP PRN ×2 (15:01→16:44)
[2018-01-03] MEDS ORDERED: Ringers Solution, Lactated 1,000 ML IVC SCH ×2 (15:15→16:44)
--- NOTE | 2018-01-03 15:58 | Operative Note ---
Date of procedure: 01/03/18 Pre-op diagnosis: Osteomyelitis left lower extremity, nonunion fracture Post-op diagnosis: same Procedure: Left, above-knee, amputation Anesthesia: GETA Surgeon: Troy Parker Was there an recycling assistant present: No Estimated blood loss (cc): 50 Specimen: Left above-knee dictation Condition: stable Disposition: PACU Procedure in Detail: Above-knee amputation, left The patient was taken to the major operating suite placed in the supine position and given adequate general endotracheal anesthesia. The left leg was prepped and draped in sterile fashion utilizing Betadine solution standard draping techniques. Timeout was taken patient was identified. Lateralizing reynaldo was identified. I used a skin scribe to reynaldo out a [place] orientation on the left thigh. With the posterior flap longer than the anterior flap. I divided the skin with a #10 blade. Saphenous vein was divided between clamps and hemostatic ligatures. I used electrocautery to divide the anterior compartment down to the femur. The lateral musculature was divided with electrocautery. I isolated the superficial femoral artery and vein between clamps and hemostatic ligatures this was divided. The biceps were then divided with electrocautery isolating the sciatic nerve. This was divided between clamps and hemostatic ligatures of 0 silk. Periosteal elevator was used to remove the periosteum and musculature from the bone to the appropriate level. The femur was divided with an oscillating saw. The specimen was sent off the field. Hemostasis was gained with electrocautery, 0 silk stick ties, and 0 silk hemostatic ligatures. This gave an excellent technical result. The wound was irrigated with copious amounts of antibiotic containing solution. I reapproximated the deep muscular layer with interrupted 0 Vicryl. I interrupted the superficial muscular layer with interrupted 0 Vicryl. The subcutaneous tissue was reapproximated with interrupted 2-0 Vicryl. The skin was reapproximated with skin clips. The patient tolerated the procedure well a sterile dressing with compression was applied and he was transferred to the recovery area in stable condition.
--- NOTE | 2018-01-03 16:21 | Anesthesia Evaluation Post Op ---
Date of Encounter: 01/03/18 Time of Encounter: 16:21 - Vital Signs Vital Signs: Vital Signs/O2 Sat/Glucose, Most Current Temp Pulse Resp BP Pulse Ox 01/03/18 16:12 98.2 F 80 16 104/62 98 01/03/18 16:02 98.2 F 84 16 98/62 95 - Lungs Lungs: Clear Ascult./Percussion - Airway Airway: Non-obstructed - Cardiovascular Regular Rate, Baseline Rhythm - Mental Status Mental Status: Alert & Oriented, Answers Appropriately - Pain Pain Scale: 0 Pain Scale used: Numeric (1 - 10) - Nausea Vomiting Nausea Vomiting: Not Present - Hydration Hydration: Tolerates oral liquids, [place] catheter - Discharge PostOp Status: Transfer Patient to floor
[2018-01-03] MEDS ORDERED: D5% in Water 1,000 ML IVC PRN (16:44)
[2018-01-03] MEDS ORDERED: *HR* OxyCODONE Immed Rel 5 MG TABLET PO PRN (16:44)
[2018-01-03] MEDS ORDERED: Dextrose Gel 15 GM/37.5 ML TUBE PO PRN ×2 (16:44)
[2018-01-03] MEDS ORDERED: *HR* Dextrose 50 % in Water (Syg) 50 ML SYRINGE IVP PRN (16:44)
[2018-01-03] MEDS ORDERED: Ondansetron 4 MG/2 ML VIAL IVP PRN (16:44)
[2018-01-03] MEDS ORDERED: traMADol 50 MG TABLET PO PRN (16:44)
[2018-01-03] MEDS ORDERED: Acetaminophen 325 MG TABLET PO PRN (16:44)
[2018-01-03] MEDS ORDERED: Ipratropium/Albuterol Neb 3 ML IH PRN (16:44)
[2018-01-03 19:21] LABS: Hematocrit 26.7 % (37.5-50.1); Hemoglobin 8.1 g/dL (12.9-16.9)
[2018-01-03] MEDS: Famotidine 20 MG TABLET PO SCH (21:56)
[2018-01-04] MEDS: Piperacillin/Tazobactam 3.375 GM in 0.9 % Sodium Chloride Mini Bag 100 ML IVPB SCH ×2 (00:28→08:00)
[2018-01-04 04:26] LABS: Basophils % 0.1 %; Eosinophils % 0.1 %; Hematocrit 23.6 % (37.5-50.1); Hemoglobin 7.2 g/dL (12.9-16.9); Immature Granulocytes % 0.9 % (0-4); Lymphocytes # 0.6 K/mcL (0.6-4.6); Lymphocytes % 5.4 %; Mean Corpuscular HGB Conc 30.5 g/dL (31.6-35.5); Mean Corpuscular Hemoglobin 20.7 pg (28.0-33.3); Mean Corpuscular Volume 67.8 fL (83.0-100.0); Mean Platelet Volume 8.5 fL (9.4-12.4); Monocytes # 0.7 K/mcL (0.0-1.3); Neutrophils # 9.2 K/mcL (1.6-8.9); Platelet Count 427 K/mcL (140-400); Red Blood Count 3.48 M/mcL (4.19-5.50); Red Cell Distribution Width 18.1 % (11.5-14.5); Segmented Neutrophils % 86.5 %
[2018-01-04 04:40] LABS: Calcium 7.8 mg/dL (8.6-10.3); Potassium 3.7 mEq/L (3.5-5.1)
[2018-01-04 04:53] LABS: Anisocytosis 2+ (Not Present)
[2018-01-04 04:54] LABS: Microcytosis Present (Not Present); Platelet Estimate Increased (Normal)
[2018-01-04] MEDS ORDERED: Aminoglycoside Consult 1 EACH MC ONE (07:05)
[2018-01-04] MEDS: Gabapentin 300 MG CAPSULE PO SCH ×4 (07:58→20:15)
[2018-01-04] MEDS: Metoprolol XL (24 HR) Succ 25 MG TAB.ER.24H PO SCH (07:59)
[2018-01-04] MEDS: Insulin LISPRO 300 UNITS/3 ML VIAL SQ SCH ×4 (08:22→20:10)
--- NOTE | 2018-01-04 08:32 | General Surgery Progress Note ---
<Aj Haynes - Last Filed: 01/04/18 08:29> Date of Encounter: 01/04/18 Time of Encounter: 07:00 - Assessment and Plan (1) Infected wound Current Visit: Yes Status: Acute Patient is post-op day 1 for AKA of left leg 2/2 infected wounds He is a paraplegic 2/2 fall in 2007 Patient was scheduled to have above knee amputation performed by Dr. Parker on , this was pushed forward to Tuesday (01/04) due to signs of infection Patient has no complaints Patient on levaquin, zosyn WBC 10.6 Hgb 8.1 > 7.2, estimated blood loss during surgery was minimal (<100 ml) From surgical standpoint, patient is ok to go home, he doesn't need rehab as he has equipment at home for his paraplegia, would recommend getting a low air-loss mattress to prevent further lower extremity ulcerations Surgery will sign off at this time, thank you for the consult (2) Urinary tract infection Current Visit: Yes Status: Acute Managed per primary team Suspected catheter associated Continue Abx WBC 10.6 Urine culture showed no growth Qualifiers: Urinary tract infection type: catheter-associated UTI Qualified Code(s): T83.510A - Infection and inflammatory reaction due to cystostomy catheter, initial encounter; N39.0 - Urinary tract infection, site not specified (3) Left lower lobe pneumonia Current Visit: No Status: Suspected Management per primary team CXR concerning for LLL PNA vs atelectasis Continue Abx Blood culture x2 - no growth Repeat sputum culture, initial was inadequate for culture WBC 10.6 Negative strep pneumo and legionella antigens Afebrile Qualifiers: Pneumonia type: due to unspecified organism Qualified Code(s): J18.1 - Lobar pneumonia, unspecified organism (4) Diabetes mellitus Current Visit: Yes Status: Chronic Management per primary team Glucose 180 today Continue sliding scale insulin Qualifiers: Diabetes mellitus type: type 2 Diabetes mellitus superintendent terminal insulin use: without superintendent terminal use Diabetes mellitus complication status: with skin complications Diabetes mellitus complication detail: with foot ulcer Qualified Code(s): E11.621 - Type 2 diabetes mellitus with foot ulcer; L97.509 - Non-pressure chronic ulcer of other part of unspecified foot with unspecified severity (5) HTN (hypertension) Current Visit: Yes Status: Chronic Management per primary team BP 132/77 Qualifiers: Hypertension type: essential hypertension Qualified Code(s): I10 - Essential (primary) hypertension (6) Paraplegia Current Visit: Yes Status: Chronic Paralyzed below waist 2/2 fall in 2007 Subjective Patient reports: no new complaints, feels better, tolerating a regular diet, bowel movement, afebrile Narrative: Patient denies fevers/chills, leg pain Objective Vital Signs - Last 8 Hours Temp Pulse Resp BP Pulse Ox 01/04/18 06:52 97.6 F 74 17 105/62 91 01/04/18 04:30 97.6 F 74 16 106/54 92 Intake and Output 01/03/18 01/04/18 01/04/18 23:59 07:59 15:59 Intake Total 200 / 200 100 / 100 Output Total 450 / 450 250 / 250 Balance -250 / -250 -150 / -150 Intake: IV Fluids 100 / 100 100 / 100 Zosyn 3.375 GM In 0.9 % Sodium 100 / 100 100 / 100 Chloride (Mini-Bag +) 100 ML @ 25 mls/hr IVPB Q8HR [facility] Rx#: [id number] Oral 100 / 100 0 / 0 Output: Estimated Blood Loss 50 / 50 Catheter 400 / 400 250 / 250 Other: Percent of Meal Consumed 0% Weight 113.4 kg Blood Glucose* 256 172 Patient Weight 01/04/18 23:59 Weight 113.4 kg - General physical appearance well developed - Respiratory normal expansion, normal respiratory effort - Cardiovascular Cardiovascular exam: Present: RRR, murmurs (systolic ejection murmur) - Abdomen Abdomen: Present: bowel sounds present, soft - Incision Incision: Present: clean and dry, intact - Neurologic other (paraplegia in lower extremities bilaterally) - Psychiatric oriented to time, oriented to person, oriented to place - Additional Exam left leg above knee amputation - Labs 01/04/18 04:07 01/04/18 04:07 Diabetes panel 01/04/18 Range/Units 04:07 Sodium 132 L (136-145) mEq/L Potassium 3.7 (3.5-5.1) mEq/L Chloride 98 (98-107) mEq/L Carbon Dioxide 27 (23-29) mEq/L BUN 19 (8-23) mg/dL Creatinine 1.41 H (0.70-1.30) mg/dL Glucose 180 H (70-105) mg/dL Calcium 7.8 L (8.6-10.3) mg/dL Calcium panel 01/04/18 Range/Units 04:07 Calcium 7.8 L (8.6-10.3) mg/dL Pituitary panel 01/04/18 Range/Units 04:07 Sodium 132 L (136-145) mEq/L Potassium 3.7 (3.5-5.1) mEq/L Chloride 98 (98-107) mEq/L Carbon Dioxide 27 (23-29) mEq/L BUN 19 (8-23) mg/dL Creatinine 1.41 H (0.70-1.30) mg/dL Glucose 180 H (70-105) mg/dL Calcium 7.8 L (8.6-10.3) mg/dL Adrenal panel 01/04/18 Range/Units 04:07 Sodium 132 L (136-145) mEq/L Potassium 3.7 (3.5-5.1) mEq/L Chloride 98 (98-107) mEq/L Carbon Dioxide 27 (23-29) mEq/L BUN 19 (8-23) mg/dL Creatinine 1.41 H (0.70-1.30) mg/dL Glucose 180 H (70-105) mg/dL Calcium 7.8 L (8.6-10.3) mg/dL Consult Discharge Plan - Plan Referrals: NONE,PCP [Primary Care Provider] - <Troy Parker - Last Filed: 01/05/18 08:19> Objective Vital Signs - Last 8 Hours Temp Pulse Resp BP Pulse Ox 01/05/18 06:55 98.2 F 85 16 123/69 92 01/05/18 04:53 98.7 F 85 16 113/70 90 01/05/18 00:31 98.3 F 80 15 109/68 92 Intake and Output 01/04/18 01/05/18 01/05/18 23:59 07:59 15:59 Intake Total 670 / 670 0 / 0 Output Total 500 / 500 850 / 850 Balance 170 / 170 -850 / -850 Intake: IV Fluids 100 / 100 Zosyn 3.375 GM In 0.9 % Sodium 100 / 100 Chloride (Mini-Bag +) 100 ML @ 25 mls/hr IVPB Q8HR [facility] Rx#: [id number] Oral 220 / 220 0 / 0 Blood Product 350 / 350 Rbcs Leuko Poor As-1 Unit 350 / 350 [id number] Output: Catheter 500 / 500 850 / 850 Other: Meal Dinner Percent of Meal Consumed 100% Weight 113.2 kg Blood Glucose* 186 136 Patient Weight 01/05/18 23:59 Weight 113.2 kg - Labs 01/05/18 03:21 01/05/18 03:21 Diabetes panel 01/05/18 Range/Units 03:21 Sodium 133 L (136-145) mEq/L Potassium 3.8 (3.5-5.1) mEq/L Chloride 100 (98-107) mEq/L Carbon Dioxide 24 (23-29) mEq/L BUN 22 (8-23) mg/dL Creatinine 1.98 H (0.70-1.30) mg/dL Glucose 125 H (70-105) mg/dL Calcium 7.9 L (8.6-10.3) mg/dL Calcium panel 01/05/18 Range/Units 03:21 Calcium 7.9 L (8.6-10.3) mg/dL Pituitary panel 01/05/18 Range/Units 03:21 Sodium 133 L (136-145) mEq/L Potassium 3.8 (3.5-5.1) mEq/L Chloride 100 (98-107) mEq/L Carbon Dioxide 24 (23-29) mEq/L BUN 22 (8-23) mg/dL Creatinine 1.98 H (0.70-1.30) mg/dL Glucose 125 H (70-105) mg/dL Calcium 7.9 L (8.6-10.3) mg/dL Adrenal panel 01/05/18 Range/Units 03:21 Sodium 133 L (136-145) mEq/L Potassium 3.8 (3.5-5.1) mEq/L Chloride 100 (98-107) mEq/L Carbon Dioxide 24 (23-29) mEq/L BUN 22 (8-23) mg/dL Creatinine 1.98 H (0.70-1.30) mg/dL Glucose 125 H (70-105) mg/dL Calcium 7.9 L (8.6-10.3) mg/dL - Attending Attestation I examined this patient and my medical decision-making was reviewed with the Resident Physician. I agree with the documented findings, disposition and treatment plan as described except to the extent set forth below. The patient is seen and evaluated on morning rounds with the resident and the clinical nurse practitioner. The amputation stump is clean and dry. He had a mild to moderate drop in his hemoglobin. He has baseline anemia worsened by acute blood loss anemia forth very small drop in his hemoglobin. We will continue to monitor his hemoglobin and hematocrit. He should be able to be discharged since he has paraplegia and is well trained in transfer and occupational therapy Troy Parker MD FACS
[2018-01-04] MEDS ORDERED: Levofloxacin 750 MG/150 ML 750 MG/150 ML BAG IVPB SCH (09:00)
[2018-01-04] MEDS ORDERED: 0.9 % Sodium Chloride 1,000 ML IVC SCH (09:00)
[2018-01-04] MEDS ORDERED: cefTRIAXone 1,000 MG in Water for inj. (sterile) 20 ML 10 ML IVP SCH (10:00)
--- NOTE | 2018-01-04 10:24 | Internal Med Progress Note ---
<AcuñaArjun Geneva - Last Filed: 01/04/18 11:27> Hospitalist Progress Note - Encounter Date of Encounter: 01/04/18 Time of Encounter: 09:15 - Subjective Interval History: Laying comfortably in bed. Jennifer LYONS yesterday. 1 episode of coffee ground emesis on Tuesday he denies but his admitted to which was not made available to staff. He denies subjective fever/chills, cough, sob, pleuritic chest pain, abdominal pain, blood in stool or NSAID use. - Exam Vitals: Temp Pulse Resp BP Pulse Ox 98.0 F 79 16 103/60 96 01/04/18 09:56 01/04/18 09:56 01/04/18 09:56 01/04/18 09:56 01/04/18 09:56 Exam: General: Awake, alert, appears stated age, no signs of acute distress or toxicity HEENT: EOMi, pupils equal/round, mucus membranes moist. Cardiac: RRR, S1/S2 present, 4/6 systolic ejection murmur, no heaves, thrills appreciated, radial pulse 2+ bilaterally, normal capillary refill, no peripheral edema Chest: Symmetric chest rise, non tender Pulmonary: Good air movement, normal resp effort, no wheezes, rhonchi, rales appreciated Abdominal: Soft, non-tender, no distention, guarding, rebound tenderness, or rigidity Neuro: AOx3, CN grossly intact Psych: Normal affect Integumentary: [place], warm, dry, L lower leg bandaged and amputated above knee, no bleeding or discharge. - Assessment and Plan (1) Infected wound Current Visit: Yes Status: Acute Assessment and Plan: Infected ulcer L heal. Noted to be diabetic/pressure ulcer previously -Dr Parker follows -Wound care following -Blood cultures x2 ngtd -Tmax 98 overnight, wbc 10.6 -L AKA yesterday with Dr Parker -Surg signed off and ok to [place] from their standpoint -Dc vanc, zosyn, continue levaquin (2) Anemia Current Visit: Yes Status: Acute Assessment and Plan: Hgb 7.2 today. -L heal wound has been bleeding over time. -Hgb trending down last few months from 11.6 (06/29), 11.4 (10/29), 10.1 (12/23/17), and 9.5 (01/01/18), 8.5 (01/02/18) and 8.2 yst. -MCV 67.7. -Denies any blood in stool but had episode coffee ground emesis Tuesday. -Iron profile, Fe <10, transferrin 167 -Will transfuse 2 units PRBC and trend H&H. -GI consulted for probable EGD tomorrow. (3) UTI (urinary tract infection) Current Visit: Yes Status: Ruled-out Assessment and Plan: Suspected chronic catheter associated UTI vs colonization -Suprapubic catheter 2/2 paraplegia -[place] urine culture will need to be resent today. -Urology follows and sees Dr Sanchez, will consult after culture resulted. -Vanc and zosyn dc, will keep levaquin now and transition to PO at wi (4) Left lower lobe pneumonia Current Visit: No Status: Suspected Assessment and Plan: Cxr at [place] possible LLL pneumonia vs atelectesis -No cough, sob -Sputum culture from 01/01 inadequate for culture -Urine legionella antigen and S. pneumo neg -BC x2 neg -Awaiting repeat sputum culture -Tmax 98 overnight, wbc 10.6 -DC vanc, zosyn, and continue levaquin (5) Diabetes mellitus Current Visit: Yes Status: Chronic Assessment and Plan: Holding home metformin. -SSI and accu cheks (6) HTN (hypertension) Current Visit: Yes Status: Chronic Assessment and Plan: Normotensive, 103/60 most recent. -Continue to trend BP and add home antihypertensives as indicated. (7) CAD (coronary artery disease) Current Visit: Yes Status: Chronic Assessment and Plan: Stable. No ischemic symptom complaints. 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 (10) Acute kidney injury Current Visit: Yes Status: Acute Assessment and Plan: -Cr 1.41 today, 0.77 01/03/18 -Likely 2/2 NPO for L AKA while on vanc and zosyn -Getting 2 units PRBC today for anemia and will give IVF after. -Trend renal function. DVT Prophylaxis: Mechanical - Time Spent with Patient Total time spent is greater than 50% in coordination of care (as documented) at patient's floor/unit and/or counseling patient: less than 15 minutes Plan of Care Discussed with: patient Internal Medicine: Result - Labs CBC & Chem 7: 01/04/18 04:07 01/04/18 04:07 Labs: Short CBC 01/03/18 01/04/18 Range/Units 18:46 04:07 WBC 10.6 (4.3-11.1) K/mcL Hgb 8.1 L 7.2 L (12.9-16.9) g/dL Hct 26.7 L 23.6 L (37.5-50.1) % Plt Count 427 H (140-400) K/mcL Neutrophils # 9.2 H (1.6-8.9) K/mcL BMP 01/04/18 04:07 Sodium 132 L Potassium 3.7 Chloride 98 Carbon Dioxide 27 BUN 19 Creatinine 1.41 H Glucose 180 H Calcium 7.8 L - ABG Interpretation ABG results: PT/INR, D-dimer PT 14.9 Seconds (9.4-12.1) H 01/02/18 04:01 Consult Discharge Plan - Plan Referrals: NONE,PCP [Primary Care Provider] - <Maykel Bacon - Last Filed: 01/04/18 16:27> Hospitalist Progress Note - Exam Vitals: Temp Pulse Resp BP Pulse Ox 97.9 F 77 16 101/58 96 01/04/18 16:03 01/04/18 16:03 01/04/18 16:03 01/04/18 16:03 01/04/18 09:56 - Assessment and Plan (1) Acute kidney injury Current Visit: Yes Status: Acute (2) UTI (urinary tract infection) Current Visit: Yes Status: Ruled-out (3) Left lower lobe pneumonia Current Visit: No Status: Suspected (4) Infected wound Current Visit: Yes Status: Acute (5) Diabetes mellitus Current Visit: Yes Status: Chronic (6) HTN (hypertension) Current Visit: Yes Status: Chronic (7) CAD (coronary artery disease) Current Visit: Yes Status: Chronic (8) Paraplegia Current Visit: Yes Status: Chronic (9) Anemia Current Visit: Yes Status: Acute (10) Pressure ulcer of left ankle, stage 4 Current Visit: Yes Status: Resolved - Time Spent with Patient Total time spent is greater than 50% in coordination of care (as documented) at patient's floor/unit and/or counseling patient: Internal Medicine: Result - Labs CBC & Chem 7: 01/04/18 04:07 01/04/18 04:07 Labs: Short CBC 01/03/18 01/04/18 Range/Units 18:46 04:07 WBC 10.6 (4.3-11.1) K/mcL Hgb 8.1 L 7.2 L (12.9-16.9) g/dL Hct 26.7 L 23.6 L (37.5-50.1) % Plt Count 427 H (140-400) K/mcL Neutrophils # 9.2 H (1.6-8.9) K/mcL BMP 01/04/18 04:07 Sodium 132 L Potassium 3.7 Chloride 98 Carbon Dioxide 27 BUN 19 Creatinine 1.41 H Glucose 180 H Calcium 7.8 L - ABG Interpretation ABG results: PT/INR, D-dimer PT 14.9 Seconds (9.4-12.1) H 01/02/18 04:01 - Attending Attestation I examined this patient and my medical decision-making was reviewed with the Resident Physician on 01/04/18. I agree with the documented findings, disposition and treatment plan as described except to the extent set forth below. Mr Donis is currently admitted for infected L foot and is s/p AKA yesterday. He remains moderate to high risk due to potential for worsening clinical status. Mr Donis is doing OK. No issues with AKA. No fever or chills. Hemoglobin lower today. reports patient had episode of coffee ground emesis last week. No abd pain at this time. Exam Alert Comfortable Mucus membranes dry Heart not tachy No wheeze abd nontender Dressing intact Wound covered on R lat malleolus I/P 1. Infected pressure ulcer - s/p AKA 2. Pressure ulcer R leg - wound care 3. Anemia due to blood loss/possible GI bleed - PPI, GI eval. Further diagnoses and plan as above. <Arjun Acuña - Last Filed: 01/04/18 11:27> (2) Anemia Qualifiers: Anemia type: iron deficiency Iron deficiency anemia type: chronic blood loss Qualified Code(s): D50.0 - Iron deficiency anemia secondary to blood loss (chronic) (3) UTI (urinary tract infection) Qualifiers: Urinary tract infection type: catheter-associated UTI Indwelling urinary catheter type: cystostomy catheter Encounter type: initial encounter Qualified Code(s): T83.510A - Infection and inflammatory reaction due to cystostomy catheter, initial encounter; N39.0 - Urinary tract infection, site not specified (5) Diabetes mellitus Qualifiers: Diabetes mellitus type: type 2 Diabetes mellitus [place] [employer] insulin use: without jail use Diabetes mellitus complication status: with skin complications Diabetes mellitus complication detail: with foot ulcer Qualified Code(s): E11.621 - Type 2 diabetes mellitus with foot ulcer; L97.509 - Non- pressure chronic ulcer of other part of unspecified foot with unspecified severity (6) HTN (hypertension) Qualifiers: Hypertension type: essential hypertension Qualified Code(s): I10 - Essential (primary) hypertension (7) CAD (coronary artery disease) Qualifiers: Coronary Disease-Associated Artery/Lesion type: [place] artery [place] vs. transplanted heart: [place] heart Associated angina: without angina Qualified Code(s): I25.10 - Atherosclerotic heart disease of [place] coronary artery without angina pectoris <Maykel Bacon - Last Filed: 01/04/18 16:27> (2) UTI (urinary tract infection) Qualifiers: Urinary tract infection type: catheter-associated UTI Indwelling urinary catheter type: cystostomy catheter Encounter type: subsequent encounter Qualified Code(s): T83.510D - Infection and inflammatory reaction due to cystostomy catheter, subsequent encounter; N39.0 - Urinary tract infection, site not specified (3) Left lower lobe pneumonia Qualifiers: Pneumonia type: due to unspecified organism (5) Diabetes mellitus Qualifiers: Diabetes mellitus type: type 2 Diabetes mellitus jail insulin use: without jail use Diabetes mellitus complication status: with skin complications Diabetes mellitus complication detail: with foot ulcer Qualified Code(s): E11.621 - Type 2 diabetes mellitus with foot ulcer; L97.509 - Non- pressure chronic ulcer of other part of unspecified foot with unspecified severity (6) HTN (hypertension) Qualifiers: Hypertension type: essential hypertension Qualified Code(s): I10 - Essential (primary) hypertension (7) CAD (coronary artery disease) Qualifiers: Coronary Disease-Associated Artery/Lesion type: [place] artery [place] vs. transplanted heart: [place] heart Associated angina: without angina Qualified Code(s): I25.10 - Atherosclerotic heart disease of [place] coronary artery without angina pectoris (9) Anemia Qualifiers: Anemia type: iron deficiency Iron deficiency anemia type: chronic blood loss Qualified Code(s): D50.0 - Iron deficiency anemia secondary to blood loss (chronic)
[2018-01-04] MEDS ORDERED: 0.9 % Sodium Chloride 500 ML ONE (11:48)
[2018-01-04] MEDS: Pantoprazole 40 MG VIAL IVP SCH (14:35)
[2018-01-04] MEDS ORDERED: 0.9 % Sodium Chloride 250 ML ONE (15:21)
[2018-01-04] MEDS: Famotidine 20 MG TABLET PO SCH (20:08)
[2018-01-04 20:54] LABS: Hematocrit 29.8 % (37.5-50.1)
[2018-01-04 20:55] LABS: Hemoglobin 9.3 g/dL (12.9-16.9)
[2018-01-05 04:11] LABS: Hematocrit 29.4 % (37.5-50.1); Hemoglobin 9.2 g/dL (12.9-16.9)
[2018-01-05 04:29] LABS: Calcium 7.9 mg/dL (8.6-10.3); Potassium 3.8 mEq/L (3.5-5.1)
[2018-01-05] MEDS ORDERED: 0.9 % Sodium Chloride 1,000 ML IVC SCH (07:00)
--- NOTE | 2018-01-05 07:07 | Internal Med Progress Note ---
<ArianneArjun Geneva - Last Filed: 01/05/18 16:05> Hospitalist Progress Note - Encounter Date of Encounter: 01/05/18 Time of Encounter: 09:00 - Subjective Interval History: Laying comfortably in bed. L AKA 01/03/18. No new complaints today. 1 episode of coffee ground emesis on Tuesday, none since. He denies subjective fever/chills, cough, sob, pleuritic chest pain, abdominal pain, blood in stool or NSAID use. - Exam Vitals: Temp Pulse Resp BP Pulse Ox 98.7 F 85 16 113/70 90 01/05/18 04:53 01/05/18 04:53 01/05/18 04:53 01/05/18 04:53 01/05/18 04:53 Exam: General: Awake, alert, appears stated age, no signs of acute distress or toxicity HEENT: EOMi, pupils equal/round, mucus membranes moist. Cardiac: RRR, S1/S2 present, 4/6 systolic ejection murmur, no heaves, thrills appreciated, radial pulse 2+ bilaterally, normal capillary refill, no peripheral edema Chest: Symmetric chest rise, non tender Pulmonary: Good air movement, normal resp effort, no wheezes, rhonchi, rales appreciated Abdominal: Soft, non-tender, no distention, guarding, rebound tenderness, or rigidity Neuro: AOx3, CN grossly intact Psych: Normal affect Integumentary: [place], warm, dry, L lower leg bandaged and amputated above knee, no bleeding or discharge. - Assessment and Plan (1) Infected wound Current Visit: Yes Status: Acute Assessment and Plan: Infected ulcer L heal. Noted to be diabetic/pressure ulcer previously -Dr Parker follows -Wound care following -Blood cultures x2 ngtd -Tmax 98.7 overnight, wbc 10.6 most recent -L PRAMODA 01/03/[address] Parker -Surg signed off and ok to mi from their standpoint -Dc'd vanc, zosyn 01/04/18, continued levaquin (5 days so far), levaquin q48 today for worsening renal function, will switch to PO after EGD (2) Anemia Current Visit: Yes Status: Acute Assessment and Plan: Hgb 9.2 today. -L heal wound has been bleeding over time, had L AKA 01/03/18. -Hgb trending down last few months from 11.6 (06/29), 11.4 (10/29), 10.1 (12/23/17), and 9.5 (01/01/18), 8.5 (01/02/18), 8.2, (01/03/18) and 7.2 yst. -MCV 67.7 most recent. -Denies any blood in stool but had episode coffee ground emesis 01/01/18. -Iron profile, Fe <10, transferrin 167 -Transfused 2 units PRBC yst, H&H up to 9.2 and 29.4. -GI consulted for probable EGD today. (3) Left lower lobe pneumonia Current Visit: No Status: Suspected Assessment and Plan: Cxr at [place] suspected LLL pneumonia vs atelectesis -No cough, sob -Sputum culture from 01/01 inadequate for culture -Urine legionella antigen and S. pneumo neg -BC x2 neg -Tmax 98.7 overnight, wbc 10.6 most recent -DC vanc, zosyn, and continue levaquin (4) Diabetes mellitus Current Visit: Yes Status: Chronic Assessment and Plan: Holding home metformin. -SSI and accu cheks (5) HTN (hypertension) Current Visit: Yes Status: Chronic Assessment and Plan: Normotensive, 123/69 most recent. -Continue to trend BP and add home antihypertensives as indicated. (6) CAD (coronary artery disease) Current Visit: Yes Status: Chronic Assessment and Plan: Stable. No ischemic symptom complaints. (7) Paraplegia Current Visit: Yes Status: Chronic Assessment and Plan: Paralyzed below waist after fall in 2007. (8) Pressure ulcer of left ankle, stage 4 Current Visit: Yes Status: Resolved Assessment and Plan: Had L AKA 01/03/18 (9) UTI (urinary tract infection) Current Visit: Yes Status: Ruled-out Assessment and Plan: Suspected chronic catheter associated UTI vs colonization -Suprapubic catheter 2/2 paraplegia -[place] urine culture will need to be resent today. -Urology follows and sees Dr Sanchez, will consult after culture resulted. -Vanc and zosyn mi, will keep levaquin now and transition to PO at mi (10) Acute kidney injury Current Visit: Yes Status: Acute Assessment and Plan: -Worsening today. -Cr 1.98 today (1.41 yst), 0.77 01/03/18 -Likely 2/2 NPO for L ELOY while on vanc and zosyn -Got 2 units PRBC yst. -Trend renal function. -Will give IVF today and switch IV levaquin to q48h due to current renal function. DVT Prophylaxis: Mechanical - Time Spent with Patient Total time spent is greater than 50% in coordination of care (as documented) at patient's floor/unit and/or counseling patient: less than 15 minutes Plan of Care Discussed with: patient Internal Medicine: Result - Labs CBC & Chem 7: 01/05/18 03:21 01/05/18 03:21 Labs: Short CBC 01/04/18 01/05/18 Range/Units 20:39 03:21 Hgb 9.3 L D 9.2 L (12.9-16.9) g/dL Hct 29.8 L 29.4 L (37.5-50.1) % BMP 01/05/18 03:21 Sodium 133 L Potassium 3.8 Chloride 100 Carbon Dioxide 24 BUN 22 Creatinine 1.98 H Glucose 125 H Calcium 7.9 L - ABG Interpretation ABG results: PT/INR, D-dimer PT 14.9 Seconds (9.4-12.1) H 01/02/18 04:01 Consult Discharge Plan - Plan Referrals: Troy Parker MD [Partnered Physician] - 01/13/18 10:45 am Mely Gray MD [Partnered Physician] - 01/13/18 2:15 pm <Maykel Bacon - Last Filed: 01/05/18 18:13> Hospitalist Progress Note - Exam Vitals: Temp Pulse Resp BP Pulse Ox 99.4 F 76 16 118/71 94 01/05/18 11:31 01/05/18 16:39 01/05/18 13:51 01/05/18 16:39 01/05/18 12:15 - Assessment and Plan (1) UTI (urinary tract infection) Current Visit: Yes Status: Ruled-out (2) Left lower lobe pneumonia Current Visit: No Status: Suspected (3) Infected wound Current Visit: Yes Status: Acute (4) Diabetes mellitus Current Visit: Yes Status: Chronic (5) HTN (hypertension) Current Visit: Yes Status: Chronic (6) CAD (coronary artery disease) Current Visit: Yes Status: Chronic (7) Paraplegia Current Visit: Yes Status: Chronic (8) Anemia Current Visit: Yes Status: Acute (9) Pressure ulcer of left ankle, stage 4 Current Visit: Yes Status: Resolved (10) Acute kidney injury Current Visit: Yes Status: Acute - Time Spent with Patient Total time spent is greater than 50% in coordination of care (as documented) at patient's floor/unit and/or counseling patient: Internal Medicine: Result - Labs CBC & Chem 7: 01/05/18 03:21 01/05/18 03:21 Labs: Short CBC 01/04/18 01/05/18 Range/Units 20:39 03:21 Hgb 9.3 L D 9.2 L (12.9-16.9) g/dL Hct 29.8 L 29.4 L (37.5-50.1) % BMP 01/05/18 03:21 Sodium 133 L Potassium 3.8 Chloride 100 Carbon Dioxide 24 BUN 22 Creatinine 1.98 H Glucose 125 H Calcium 7.9 L - ABG Interpretation ABG results: PT/INR, D-dimer PT 14.9 Seconds (9.4-12.1) H 01/02/18 04:01 - Attending Attestation I examined this patient and my medical decision-making was reviewed with the Resident Physician on 01/05/18. I agree with the documented findings, disposition and treatment plan as described except to the extent set forth below. Mr Donis is currently admitted for infected foot ulcer s/p AKA and anemia with concern for GI bleed. He remains moderate to high risk due to potential for worsening clinical status. Mr Donis just returned from EGD. No overt bleeding noted. H/H stable after transfusion. No CP or SOB. Creatinine slightly higher today. Exam alert Comfortable Mucus membranes dry Heart reg with murmur Lungs cleare Abd soft I/P 1. Infected pressure ulcer s/p AKA 2. Anemia Further diagnoses and plan as above. <Arjun Acuña - Last Filed: 01/05/18 16:05> (2) Anemia Qualifiers: Anemia type: iron deficiency Iron deficiency anemia type: chronic blood loss Qualified Code(s): D50.0 - Iron deficiency anemia secondary to blood loss (chronic) (4) Diabetes mellitus Qualifiers: Diabetes mellitus type: type 2 Diabetes mellitus nursing home insulin use: without nursing home use Diabetes mellitus complication status: with skin complications Diabetes mellitus complication detail: with foot ulcer Qualified Code(s): E11.621 - Type 2 diabetes mellitus with foot ulcer; L97.509 - Non- pressure chronic ulcer of other part of unspecified foot with unspecified severity (5) HTN (hypertension) Qualifiers: Hypertension type: essential hypertension Qualified Code(s): I10 - Essential (primary) hypertension (6) CAD (coronary artery disease) Qualifiers: Coronary Disease-Associated Artery/Lesion type: [place] artery [place] vs. transplanted heart: [place] heart Associated angina: without angina Qualified Code(s): I25.10 - Atherosclerotic heart disease of [place] coronary artery without angina pectoris (9) UTI (urinary tract infection) Qualifiers: Urinary tract infection type: catheter-associated UTI Indwelling urinary catheter type: cystostomy catheter Encounter type: subsequent encounter Qualified Code(s): T83.510D - Infection and inflammatory reaction due to cystostomy catheter, subsequent encounter; N39.0 - Urinary tract infection, site not specified <Maykel Bacon - Last Filed: 01/05/18 18:13> (1) UTI (urinary tract infection) Qualifiers: Urinary tract infection type: catheter-associated UTI Indwelling urinary catheter type: cystostomy catheter Encounter type: subsequent encounter Qualified Code(s): T83.510D - Infection and inflammatory reaction due to cystostomy catheter, subsequent encounter; N39.0 - Urinary tract infection, site not specified (2) Left lower lobe pneumonia Qualifiers: Pneumonia type: due to unspecified organism (4) Diabetes mellitus Qualifiers: Diabetes mellitus type: type 2 Diabetes mellitus nursing home insulin use: without nursing home use Diabetes mellitus complication status: with skin complications Diabetes mellitus complication detail: with foot ulcer Qualified Code(s): E11.621 - Type 2 diabetes mellitus with foot ulcer; L97.509 - Non- pressure chronic ulcer of other part of unspecified foot with unspecified severity (5) HTN (hypertension) Qualifiers: Hypertension type: essential hypertension Qualified Code(s): I10 - Essential (primary) hypertension (6) CAD (coronary artery disease) Qualifiers: Coronary Disease-Associated Artery/Lesion type: [place] artery [place] vs. transplanted heart: [place] heart Associated angina: without angina Qualified Code(s): I25.10 - Atherosclerotic heart disease of [place] coronary artery without angina pectoris (8) Anemia Qualifiers: Anemia type: iron deficiency Iron deficiency anemia type: chronic blood loss Qualified Code(s): D50.0 - Iron deficiency anemia secondary to blood loss (chronic)
[2018-01-05] MEDS: Insulin LISPRO 300 UNITS/3 ML VIAL SQ SCH ×4 (08:02→20:55)
[2018-01-05] MEDS: Gabapentin 300 MG CAPSULE PO SCH ×3 (08:38→20:55)
[2018-01-05] MEDS: Metoprolol XL (24 HR) Succ 25 MG TAB.ER.24H PO SCH (08:38)
[2018-01-05] MEDS: Pantoprazole 40 MG VIAL IVP SCH (08:45)
--- NOTE | 2018-01-05 10:53 | Gastroenterology Consult Note ---
<Heladio Johnson - Last Filed: 01/05/18 15:31> Date of Encounter: 01/05/18 Time of Encounter: 09:57 - Assessment and plan (1) Anemia Current Visit: Yes Status: Acute Assessment and plan: Patient presented with hemoglobin of 9.5, had been 10.1 on December 23. Trended down during hospitalization down to 7.2. Patient was given 2 units of packed red blood cells and responded well to 9.3, 9.2 despite morning. One episode of coffee-ground emesis this hospitalization. Having regular bowel movements, unclear if there is evidence of black or bloody stools. Minimal NSAID use, on aspirin and Plavix at home. Plan for EGD today, has been nothing by mouth. Qualifiers: Anemia type: iron deficiency Iron deficiency anemia type: chronic blood loss Qualified Code(s): D50.0 - Iron deficiency anemia secondary to blood loss (chronic) (2) Coffee ground emesis Current Visit: Yes Status: Acute Assessment and plan: Plan as above. - Time Spent With Patient Total time spent is greater than 50% in coordination of care (as documented) at patient's floor/unit and/or counseling patient: GI History of Present Illness - Data of Consult Patient: new to practice Consult date: 01/05/18 Requesting Physician: Maykel Bacon DO - Consult Narrative Reason for consult: Coffee-ground emesis History of present illness: Mr. Donis is a 72 year old male with history of GERD, coronary disease, paraplegia, lower extremity wounds, type 2 diabetes presented initially with lower abdominal pain and dysuria. Patient was admitted for urinary tract infection. He was also scheduled to have a left avten-gda-ekff amputation due to infected lower extremity wound that was moved up from performed 2 days ago. Overall patient states feeling better however he reports 2 days ago he had a single episode of vomiting with black colored vomitus. He states he has never had anything like this. Reports regular bowel movements and has not looked at his bowel movements so does not know his had any change in the color or character of his bowel movements. Denies any abdominal pain, fever, chills, chest pain, shortness of breath. Patient reports taking aspirin and Plavix at home. He reports infrequent NSAID use, using NSAIDs approximately one time a week. Last had a colonoscopy in 2012 that was normal, denies ever having an EGD. Colonoscopy: 07/28/2012 EGD: Denies Past Med Surg Social Fam HX - Past Medical History Medical history: diabetes, hypertension, myocardial infarction Additional medical history: LOWER BODY PARALYSIS, left tibial fracture August 2017, non lealed, and displaced, left lower ext ulcers Psychiatric history: no psych history - Past Surgical History Surgical History: knee replacement, orthopedic, other Additional surgical history: cardiac stents 2007 - Social History Smoking Status: Never smoker Smokeless Tobacco Status: No Alcohol use: rarely Drug use: none - Family History Father Adopted: No Family Member Ethnicity: Non- Living Status: Hx Family Cardiac Disorders: No Hx Family Respiratory Disorders: Yes Hx Family Cancer: Yes (metastatic cancer) Hx Family Endocrine Disorder: No Hx Family Neuromuscular Disorders: No Hx Family Neurologic Disorders: No Hx Family HEENT Disorders: No Hx Family Autoimmune Disorders: No Mother Adopted: No Family Member Ethnicity: Non- Living Status: All systems PM: reviewed and no additional remarkable complaints except as stated - Constitutional Vitals: Temp Pulse Resp BP Pulse Ox 98.2 F 85 16 123/69 92 01/05/18 06:55 01/05/18 06:55 01/05/18 06:55 01/05/18 06:55 01/05/18 06:55 General appearance: Present: A&O X 3, pleasant, no acute distress - Head Head exam: Present: atraumatic, normal inspection, normocephalic - ENT ENT exam: Present: mucous membranes moist - Respiratory Respiratory exam: Present: CTAB. Absent: rales, rhonchi, wheezes - Cardiovascular Cardiovascular exam: Present: RRR. Absent: gallop, rubs, systolic murmur - GI/Abdominal GI/Abdominal exam: Present: normal bowel sounds, soft, no peritoneal signs. Absent: distended, guarding, rigid, tenderness - Extremities Exam Additional comments: Dressing applied to left lower extremity, status post AKA Results - Labs CBC & Chem 7: 01/05/18 03:21 01/05/18 03:21 Labs: Last Result Calcium 7.9 mg/dL (8.6-10.3) L 01/05/18 03:21 Iron < 10 mcg/dL (65-175) L 01/02/18 16:59 % Saturation TNP 01/02/18 16:59 Transferrin 167 mg/dL (203-362) L 01/02/18 16:59 Entire Visit Hgb 9.2 g/dL (12.9-16.9) L 01/05/18 03:21 Hct 29.4 % (37.5-50.1) L 01/05/18 03:21 PT 14.9 Seconds (9.4-12.1) H 01/02/18 04:01 - ABG ABG results: PT/INR, D-dimer PT 14.9 Seconds (9.4-12.1) H 01/02/18 04:01 Consult Discharge Plan - Plan Referrals: Troy Parker MD [Partnered Physician] - 01/13/18 10:45 am Mely Gray MD [Partnered Physician] - 01/13/18 2:15 pm <Pito Ferrer - Last Filed: 01/06/18 09:44> - Time Spent With Patient Total time spent is greater than 50% in coordination of care (as documented) at patient's floor/unit and/or counseling patient: GI History of Present Illness - Data of Consult Requesting Physician: Maykel Bacon DO - Consult Narrative History of present illness: Mr. Donis is a 72 year old male - Constitutional Vitals: Temp Pulse Resp BP Pulse Ox 97.8 F 77 12 115/64 92 01/06/18 08:52 01/06/18 08:52 01/06/18 08:52 01/06/18 08:52 01/06/18 08:52 Results - Labs CBC & Chem 7: 01/06/18 03:38 01/06/18 03:38 Labs: Last Result Calcium 7.9 mg/dL (8.6-10.3) L 01/06/18 03:38 Iron < 10 mcg/dL (65-175) L 01/02/18 16:59 % Saturation TNP 01/02/18 16:59 Transferrin 167 mg/dL (203-362) L 01/02/18 16:59 Entire Visit Hgb 9.1 g/dL (12.9-16.9) L 01/06/18 03:38 Hct 28.8 % (37.5-50.1) L 01/06/18 03:38 PT 14.9 Seconds (9.4-12.1) H 01/02/18 04:01 - ABG ABG results: PT/INR, D-dimer PT 14.9 Seconds (9.4-12.1) H 01/02/18 04:01 - Attending Attestation Patient presents with anemia and episode of hematemesis. Plan EGD further recommendations after that thank you I examined this patient and my medical decision-making was reviewed with the Resident Physician. I agree with the documented findings, disposition and treatment plan as described except to the extent set forth below. for this consu ltation
[2018-01-05] MEDS ORDERED: *HR* Midazolam HCl 5 MG/5 ML VIAL IVP ONE ×2 (11:05→12:08)
[2018-01-05] MEDS ORDERED: *HR* FentaNYL (PF) 100 MCG/2 ML VIAL ONE (11:06)
[2018-01-05] MEDS ORDERED: Simethicone 40 MG/0.6 ML MLS IR ONE (12:08)
[2018-01-05] MEDS ORDERED: *HR* FentaNYL (PF) 100 MCG/2 ML VIAL IVP ONE (12:08)
[2018-01-05] MEDS ORDERED: Tetracaine/Benzocaine/Butamben 1 SPRAY AEROSOL MM ONE (12:08)
[2018-01-05] MEDS: Famotidine 20 MG TABLET PO SCH (20:55)
[2018-01-06 03:49] LABS: Basophils % 0.4 %; Eosinophils # 0.1 K/mcL (0.0-0.6); Eosinophils % 0.7 %; Hematocrit 28.8 % (37.5-50.1); Hemoglobin 9.1 g/dL (12.9-16.9); Lymphocytes # 0.8 K/mcL (0.6-4.6); Lymphocytes % 8.4 %; Mean Corpuscular HGB Conc 31.6 g/dL (31.6-35.5); Mean Corpuscular Hemoglobin 22.3 pg (28.0-33.3); Mean Corpuscular Volume 70.6 fL (83.0-100.0); Mean Platelet Volume 8.4 fL (9.4-12.4); Monocytes % 9.8 %; Neutrophils # 7.8 K/mcL (1.6-8.9); Platelet Count 436 K/mcL (140-400); Red Blood Count 4.08 M/mcL (4.19-5.50); Red Cell Distribution Width 19.6 % (11.5-14.5); Segmented Neutrophils % 78.7 %
[2018-01-06 04:11] LABS: Calcium 7.9 mg/dL (8.6-10.3)
[2018-01-06] MEDS: Leptospermum Honey Gel 44 ML TUBE TP SCH ×3 (06:54→23:04)
[2018-01-06] MEDS: MICONAZOLE NITRATE 57 GM TUBE TP SCH ×3 (06:54→23:04)
[2018-01-06] MEDS: Gabapentin 300 MG CAPSULE PO SCH ×3 (08:05→20:44)
[2018-01-06] MEDS: Metoprolol XL (24 HR) Succ 25 MG TAB.ER.24H PO SCH (08:05)
[2018-01-06] MEDS: Pantoprazole 40 MG VIAL IVP SCH (08:13)
[2018-01-06] MEDS: 0.9 % Sodium Chloride 1,000 ML IVC SCH ×2 (08:14→17:05)
[2018-01-06] MEDS: Insulin LISPRO 300 UNITS/3 ML VIAL SQ SCH ×4 (08:20→20:45)
[2018-01-06] MEDS ORDERED: levoFLOXacin 750 MG TABLET PO SCH (09:00)
[2018-01-06] MEDS ORDERED: Levofloxacin 750 MG/150 ML 750 MG/150 ML BAG IVPB SCH (09:00)
--- NOTE | 2018-01-06 09:19 | Internal Med Progress Note ---
<AcuñaArjun Geneva - Last Filed: 01/06/18 13:36> Hospitalist Progress Note - Encounter Date of Encounter: 01/06/18 Time of Encounter: 09:15 - Subjective Interval History: Laying comfortably in bed. L AKA 01/03/18. No new complaints today. Wants to go home. 1 episode of coffee ground emesis on Tuesday, none since. He denies subjective fever/chills, cough, sob, pleuritic chest pain, abdominal pain, blood in stool. - Exam Vitals: Temp Pulse Resp BP Pulse Ox 98.4 F 78 15 127/63 92 01/06/18 04:00 01/06/18 04:00 01/06/18 04:00 01/06/18 04:00 01/06/18 04:00 Exam: General: Awake, alert, appears stated age, no signs of acute distress or [place] HEENT: EOMi, pupils equal/round, mucus membranes moist. Cardiac: RRR, S1/S2 present, 4/6 systolic ejection murmur, no heaves, thrills appreciated, radial pulse 2+ bilaterally, normal capillary refill, no peripheral edema Chest: Symmetric chest rise, non tender Pulmonary: Good air movement, normal resp effort, no wheezes, rhonchi, rales appreciated Abdominal: Soft, non-tender, no distention, guarding, rebound tenderness, or rigidity Neuro: AOx3, CN grossly intact Psych: Normal affect Integumentary: [place], warm, dry, L lower leg bandaged and amputated above knee, no bleeding or discharge. - Assessment and Plan (1) Infected wound Status: Acute Assessment and Plan: Infected ulcer L heal. Noted to be diabetic/pressure ulcer previously -Dr Parker follows -Wound care following -Blood cultures x2 ngtd -Tmax 99.4 overnight, wbc 9.9 most recent -L PRAMODA 01/03/[address] Parker -Surg signed off and ok to nm from their standpoint -Dc'd marry escalanten 01/04/18, continued levaquin (6 days), Will switch to PO levaquin today. (2) Anemia Status: Acute Assessment and Plan: Hgb 9.1 today. Stable. -L heal wound has been bleeding over time, had L AKA 01/03/18. -Hgb trending down last few months from 11.6 (06/29), 11.4 (10/29), 10.1 (12/23/17), and 9.5 (01/01/18), 8.5 (01/02/18), 8.2, (01/03/18) and 7.2 01/04/18. -MCV 67.7 most recent. -Denies any blood in stool but had episode coffee ground emesis 01/01/18. -Iron profile, Fe <10, transferrin 167 -Transfused 2 units PRBC 01/04/18, H&H up to 9.2 and 29.4. 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 No active bleeding that was noted. -Stable since blood transfusion. (3) Acute kidney injury Status: Acute Assessment and Plan: -Worsening today. -Cr 2.41 today (1.98 yst), 0.77 01/03/18 -Likely 2/2 NPO for L AKA while on vanc and zosyn -Got 2 units PRBC 01/04/18. -Trend renal function. -Will give IVF today and switch IV levaquin to PO. -Renal US today. (4) Left lower lobe pneumonia Status: Suspected Assessment and Plan: Cxr at [place] suspected LLL pneumonia vs atelectesis -No cough, sob -Sputum culture from 01/01 inadequate for culture -Urine legionella antigen and S. pneumo neg -BC x2 neg -Tmax 99.4 overnight, wbc 9.9 most recent -DC vanc, zosyn, and continue levaquin 1 more day. (5) Diabetes mellitus Status: Chronic Assessment and Plan: Holding home metformin. -SSI and accu cheks (6) HTN (hypertension) Status: Chronic Assessment and Plan: Normotensive, 127/63 most recent. -Continue to trend BP and add home antihypertensives as indicated. (7) CAD (coronary artery disease) Status: Chronic Assessment and Plan: Stable. No ischemic symptom complaints. (8) Paraplegia Status: Chronic Assessment and Plan: Paralyzed below waist after fall in 2007. (9) Pressure ulcer of left ankle, stage 4 Status: Resolved Assessment and Plan: Had L AKA 01/03/18 (10) UTI (urinary tract infection) Status: Ruled-out Assessment and Plan: Suspected chronic catheter associated UTI vs colonization -Suprapubic catheter 2/2 paraplegia -[place] urine culture will need to be resent today. -Urology follows and sees Dr Sanchez, will consult after culture resulted. -Isabel day, will keep levaquin now and transition to PO today. DVT Prophylaxis: Mechanical - Time Spent with Patient Total time spent is greater than 50% in coordination of care (as documented) at patient's floor/unit and/or counseling patient: less than 15 minutes Plan of Care Discussed with: patient Internal Medicine: Result - Labs CBC & Chem 7: 01/06/18 03:38 01/06/18 03:38 Labs: Short CBC 01/06/18 Range/Units 03:38 WBC 9.9 (4.3-11.1) K/mcL Hgb 9.1 L (12.9-16.9) g/dL Hct 28.8 L (37.5-50.1) % Plt Count 436 H (140-400) K/mcL Neutrophils # 7.8 (1.6-8.9) K/mcL BMP 01/06/18 03:38 Sodium 133 L Potassium 4.0 Chloride 102 Carbon Dioxide 24 BUN 24 H Creatinine 2.41 H Glucose 119 H Calcium 7.9 L - ABG Interpretation ABG results: PT/INR, D-dimer PT 14.9 Seconds (9.4-12.1) H 01/02/18 04:01 Consult Discharge Plan - Plan Instructions: Miconazole/Zinc Oxide/White Petrolatum (On the skin), Diabetes Mellitus Type 2 in Adults (DC) Referrals: Troy Parker MD [Partnered Physician] - 01/13/18 10:45 am Mely Gray MD [Partnered Physician] - 01/13/18 2:15 pm Prescriptions: RX: Leptospermum Honey [Medihoney] 1 appl TP BID 30 Days #5 tube RX: Miconazole Nitrate [[place] Antifungal] 1 appl TP BID 30 Days #5 tube <Maykel Bacon - Last Filed: 01/08/18 08:02> Hospitalist Progress Note - Exam Vitals: Temp Pulse Resp BP Pulse Ox 97.9 F 70 20 129/71 96 01/07/18 14:28 01/07/18 14:28 01/07/18 14:28 01/07/18 14:28 01/07/18 11:43 - Assessment and Plan (1) Neuropathic pain Status: Chronic (2) Infected wound Status: Resolved (3) Diabetes mellitus Status: Chronic (4) Paraplegia Status: Chronic (5) Acute kidney injury Status: Acute (6) Unilateral AKA Status: Acute - Time Spent with Patient Total time spent is greater than 50% in coordination of care (as documented) at patient's floor/unit and/or counseling patient: Internal Medicine: Result - Labs CBC & Chem 7: 01/07/18 13:51 01/07/18 13:51 Labs: Short CBC 01/07/18 Range/Units 13:51 WBC 10.1 (4.3-11.1) K/mcL Hgb 9.0 L (12.9-16.9) g/dL Hct 28.7 L (37.5-50.1) % Plt Count 456 H (140-400) K/mcL BMP 01/07/18 13:51 Sodium 135 L Potassium 4.1 Chloride 105 Carbon Dioxide 22 L BUN 25 H Creatinine 2.44 H Glucose 167 H Calcium 7.2 L - ABG Interpretation ABG results: PT/INR, D-dimer PT 14.9 Seconds (9.4-12.1) H 01/02/18 04:01 - Attending Attestation Please see event note of this date. <Arjun Acuña - Last Filed: 01/06/18 13:36> (2) Anemia Qualifiers: Anemia type: iron deficiency Iron deficiency anemia type: chronic blood loss Qualified Code(s): D50.0 - Iron deficiency anemia secondary to blood loss (chronic) (5) Diabetes mellitus Qualifiers: Diabetes mellitus type: type 2 Diabetes mellitus usp insulin use: without usp use Diabetes mellitus complication status: with skin complications Diabetes mellitus complication detail: with foot ulcer Qualified Code(s): E11.621 - Type 2 diabetes mellitus with foot ulcer; L97.509 - Non- pressure chronic ulcer of other part of unspecified foot with unspecified severity (6) HTN (hypertension) Qualifiers: Hypertension type: essential hypertension Qualified Code(s): I10 - Essential (primary) hypertension (7) CAD (coronary artery disease) Qualifiers: Coronary Disease-Associated Artery/Lesion type: [place] artery [place] vs. transplanted heart: [place] heart Associated angina: without angina Qualified Code(s): I25.10 - Atherosclerotic heart disease of [place] coronary artery without angina pectoris (10) UTI (urinary tract infection) Qualifiers: Urinary tract infection type: catheter-associated UTI Indwelling urinary catheter type: cystostomy catheter Encounter type: subsequent encounter Qualified Code(s): T83.510D - Infection and inflammatory reaction due to cystostomy catheter, subsequent encounter; N39.0 - Urinary tract infection, site not specified <Maykel Bacon - Last Filed: 01/08/18 08:02> (3) Diabetes mellitus Qualifiers: Diabetes mellitus type: type 2 Diabetes mellitus ferry terminal supervisor insulin use: without ferry terminal supervisor use Diabetes mellitus complication status: with skin complications Diabetes mellitus complication detail: with foot ulcer Qualified Code(s): E11.621 - Type 2 diabetes mellitus with foot ulcer; L97.509 - Non- pressure chronic ulcer of other part of unspecified foot with unspecified severity
[2018-01-06] MEDS ORDERED: levoFLOXacin 750 MG TABLET PO ONE (09:30)
[2018-01-06 16:28] LABS: Calcium 7.6 mg/dL (8.6-10.3)
--- NOTE | 2018-01-06 19:35 | Physician Discharge Referral ---
Home Health/Hosp Referral Info Transfer to: Home Health Attending Provider: Dr Bacon Provider in Charge Post Discharge: PCP - Diagnosis (1) Unilateral AKA Priority: Primary Status: Acute (2) Infected wound Priority: Secondary Status: Resolved - Respiratory Orders Smoking Cessation: Smoking cessation has been advised. For more information, call the [place] Tobacco Quit Line at 3-816-VIUX-NOW. - Diet/Nutrition Diet/Nutrition Orders: Cardiac (Diabetic) - Services Needed Following services are medically necessary services: Nursing, Home Health Aide Home Care Orders: Home health nurse for wound care - Transfer Medications Home Medications: Amitriptyline [Elavil] 50 mg PO HS 03/26/16 [History] Gabapentin [Neurontin] 1,200 mg PO TID 03/26/16 [History] Metoprolol XL (24 HR) Succ [Toprol Xl] 25 mg PO DAILY 03/26/16 [History] Sertraline [Zoloft] 50 mg PO HS 03/26/16 [History] hydroCHLOROthiazide [Hydrochlorothiazide] 25 mg PO DAILY 03/26/16 [History] metFORMIN [Glucophage] 250 mg PO BIDWM 03/26/16 [History] Potassium Chloride [Klor-Con 10] 10 meq PO DAILY 11/23/17 [History] Aspirin [Adult Aspirin Regimen] 81 mg PO DAILY 01/02/18 [History] Atorvastatin [Lipitor] 80 mg PO HS 01/02/18 [History] Clopidogrel [Plavix] 1 tab PO DAILY 01/02/18 [History] Famotidine [Pepcid] 20 mg PO HS 01/02/18 [History] Nitroglycerin [Nitrostat] 1 tab SL Q5MIN PRN 01/02/18 [History] Omeprazole [PriLOSEC] 40 mg PO DAILY 01/02/18 [History] raNITIdine HCl [Zantac] 150 mg PO HS 01/02/18 [History] Allergies/Adverse Reactions: Allergy/AdvReac Type Severity Reaction Status Date / Time bacitracin Allergy Blister Verified 07/02/16 10:41 [From Neosporin ([id number])] Neomycin Allergy Blister Verified 12/23/17 15:04 [From Neosporin ([id number])] polymyxin B Allergy Blister Verified 07/02/16 10:41 [From Neosporin ([id number])] Certification: Further, I certify that my clinical findings support that this patient is homebound (i.e. absences from home require considerable and taxing effort and are for medical reasons or adventism services or infrequently or short duration when for other reasons) because: Homebound Reason: Patient requires assistance of a person or device to safely leave home, Post-surgery restriction and or conditions limit ability to leave home, Leaving home requires considerable and taxing effort due to condition Attestation: My signature below is to certify that this patient is under my care and that I, or nurse practitioner, or a physician's help desk assistant working with me, has a [id number] encounter with this patient.
--- NOTE | 2018-01-06 19:41 | Event Note ---
Date of Encounter: 01/06/18 Time of Encounter: 12:20 [facility] will not allow me to attest/cosign progress note for today at this time. I examined this patient and my medical decision-making was reviewed with the Resident Physician on 01/06/18. I agree with the documented findings, disposition and treatment plan as described except to the extent set forth below. Mr Donis is currently admitted for infected foot ulcer s/p AKA. He now has developed GARTH. He remains moderate to high risk. Mr Donis feels OK. Creatinine has increased. No fever or chills. Remains elevated despite fluids. No CP or SOB. No abd pain. Exam alert Comfortable Mucus membranes dry Heart reg No wheeze Dressing intact Has good urine output from suprapubic catheter. I/P 1. GARTH - most likely prerenal (ATN) plus Vanc. Continue fluids tonight and recheck in AM. 2. Infected foot ulcer s/p AKA 3. Check ultrasound of retroperitoneum 4. Paraplegia Further diagnoses and plan as per progress note today.
[2018-01-06] MEDS: Famotidine 20 MG TABLET PO SCH (20:42)
[2018-01-07 03:27] LABS: Basophils % 0.4 %; Eosinophils # 0.2 K/mcL (0.0-0.6); Eosinophils % 1.8 %; Hematocrit 28.4 % (37.5-50.1); Hemoglobin 8.8 g/dL (12.9-16.9); Lymphocytes # 0.8 K/mcL (0.6-4.6); Lymphocytes % 7.4 %; Mean Corpuscular Hemoglobin 22.2 pg (28.0-33.3); Mean Corpuscular Volume 71.7 fL (83.0-100.0); Mean Platelet Volume 8.6 fL (9.4-12.4); Monocytes # 0.9 K/mcL (0.0-1.3); Monocytes % 8.5 %; Neutrophils # 8.1 K/mcL (1.6-8.9); Platelet Count 428 K/mcL (140-400); Red Blood Count 3.96 M/mcL (4.19-5.50); Segmented Neutrophils % 79.9 %
[2018-01-07 03:47] LABS: Calcium 7.6 mg/dL (8.6-10.3); Potassium 3.9 mEq/L (3.5-5.1)
[2018-01-07] MEDS: 0.9 % Sodium Chloride 1,000 ML IVC SCH ×2 (04:10→14:02)
[2018-01-07] MEDS: Pantoprazole 40 MG VIAL IVP SCH (07:49)
[2018-01-07] MEDS: Gabapentin 300 MG CAPSULE PO SCH ×2 (07:49→14:00)
[2018-01-07] MEDS: Metoprolol XL (24 HR) Succ 25 MG TAB.ER.24H PO SCH (07:49)
[2018-01-07] MEDS: Insulin LISPRO 300 UNITS/3 ML VIAL SQ SCH ×3 (07:49→17:26)
[2018-01-07] MEDS: MICONAZOLE NITRATE 57 GM TUBE TP SCH (14:03)
[2018-01-07 14:08] LABS: Hematocrit 28.7 % (37.5-50.1); Mean Corpuscular HGB Conc 31.4 g/dL (31.6-35.5); Mean Corpuscular Hemoglobin 22.3 pg (28.0-33.3); Mean Corpuscular Volume 71.2 fL (83.0-100.0); Mean Platelet Volume 8.5 fL (9.4-12.4); Platelet Count 456 K/mcL (140-400); Red Blood Count 4.03 M/mcL (4.19-5.50); Red Cell Distribution Width 20.3 % (11.5-14.5)
[2018-01-07 14:28] LABS: Calcium 7.2 mg/dL (8.6-10.3); Potassium 4.1 mEq/L (3.5-5.1)
[2018-01-07 14:30] VITALS: BP 129/71
--- NOTE | 2018-01-07 15:57 | Discharge Summary ---
<Pato Davis - Last Filed: 01/07/18 18:05> - NOTES TO OUTPATIENT PROVIDER Notes to Outpatient Provider: Repeat BMP to monitor for resolution of a GARTH. Resume home diuretics if renal function improved. Continue wound care as directed. Follow-up with surgeon. Orders not resulted at time of discharge: Pending orders 01/03/18 15:38 Surgical Pathology [PTH] Routine 01/05/18 12:21 Cytology [PTH] Routine Date of Encounter: 01/07/18 Time of Encounter: 15:55 - Discharge Diagnosis (1) Infected wound Priority: Secondary Status: Resolved Assessment and Plan: Infected ulcer L heal. Noted to be diabetic/pressure ulcer previously Wound care following Blood cultures x2 ngtd L AKA 01/03/[address] Parker (2) Acute kidney injury Priority: Secondary Status: Acute Assessment and Plan: Improving today. SrCr 2.44 today (2.53 yesterday), 0.77 01/03/18 2 units PRBC 01/04/18. Trend renal function. Renal US unremarkable Monitor BMP upon discharge. (3) Neuropathic pain Priority: Secondary Status: Chronic Assessment and Plan: Continue home gabapentin (4) Paraplegia Priority: Secondary Status: Chronic Assessment and Plan: Paralyzed below waist after fall in 2007. (5) Diabetes mellitus Priority: Secondary Status: Chronic Assessment and Plan: Resume home metformin. Outpatient follow-up Qualifiers: Diabetes mellitus type: type 2 Diabetes mellitus custodial insulin use: without technician terminal and repeater use Diabetes mellitus complication status: with skin complications Diabetes mellitus complication detail: with foot ulcer Qualified Code(s): E11.621 - Type 2 diabetes mellitus with foot ulcer; L97.509 - Non-pressure chronic ulcer of other part of unspecified foot with unspecified severity (6) Unilateral AKA Priority: Primary Status: Acute Assessment and Plan: Paraplegic and infected left lower extremity pressure/diabetic foot ulcer who was transferred from [place] due to left lower lobe pneumonia and underwent left AKA 01/03/[address] Parker. Hospital course: Mr. Donis is a 72 year old male with a past medical history of paraplegia and infected left lower extremity pressure/diabetic foot ulcer who was transferred from [place] due to left lower lobe pneumonia and underwent left AKA 01/03/[address] Parker. He completed a total of 6 days of antibiotic therapy including Van comycin/Zosyn/Levaquin for left lower lobe pneumonia. Postoperative course was completed by acute kidney injury likely secondary to antibiotics and intraoperative ephedrine use. Ultrasound of the kidneys and urinary bladder was unremarkable. Of note, patient has chronic suprapubic catheter in place. Urine cultures show no growth to date. Patient was given IV fluids and renal function slowly improved prior to discharge home with home health services. Repeat BMP to monitor for resolution of a GARTH. Resume home diuretics if renal function improved. Continue wound care as directed. Follow-up with surgeon. - Time Spent with Patient Total time spent providing and/or coordinating discharge services: - Discharge Medications Prescriptions: Leptospermum Honey [Medihoney] 1 appl TP BID 30 Days #5 tube Miconazole Nitrate [Kenyatta Antifungal] 1 appl TP BID 30 Days #5 tube Home Medications: Amitriptyline [Elavil] 50 mg PO HS 03/26/16 [History] Gabapentin [Neurontin] 1,200 mg PO TID 03/26/16 [History] Metoprolol XL (24 HR) Succ [Toprol Xl] 25 mg PO DAILY 03/26/16 [History] Sertraline [Zoloft] 50 mg PO HS 03/26/16 [History] metFORMIN [Glucophage] 250 mg PO BIDWM 03/26/16 [History] Potassium Chloride [Klor-Con 10] 10 meq PO DAILY 11/23/17 [History] Aspirin [Adult Aspirin Regimen] 81 mg PO DAILY 01/02/18 [History] Atorvastatin [Lipitor] 80 mg PO HS 01/02/18 [History] Clopidogrel [Plavix] 1 tab PO DAILY 01/02/18 [History] Famotidine [Pepcid] 20 mg PO HS 01/02/18 [History] Nitroglycerin [Nitrostat] 1 tab SL Q5MIN PRN 01/02/18 [History] raNITIdine HCl [Zantac] 150 mg PO HS 01/02/18 [History] Acetaminophen [Tylenol] 650 mg PO Q6HR PRN tablet 01/07/18 [Rx] Leptospermum Honey [Medihoney] 1 appl TP BID 30 Days #5 tube 01/07/18 [Rx] Miconazole Nitrate [Kenyatta Antifungal] 1 appl TP BID 30 Days #5 tube 01/07/18 [Rx] Allergies/Adverse Reactions: Allergy/AdvReac Type Severity Reaction Status Date / Time bacitracin Allergy Blister Verified 07/02/16 10:41 [From Neosporin ([id number])] Neomycin Allergy Blister Verified 12/23/17 15:04 [From Neosporin ([id number])] polymyxin B Allergy Blister Verified 07/02/16 10:41 [From Neosporin ([id number])] Date of admission: 01/01/18 12:54 Primary care physician: PCP NONE Consults: 01/01/18 14:15 Consult to Surgery [CONS] Routine Consulting Provider: Africa Mendoza Reason for Consult: left heel necrotic wound, was scheduled for left aka by Dr Parker 01/05, please eval for further treatment recs and intervention, thank you Time Notified: 14:15 Call Completed: Yes 01/04/18 09:36 Consult to Gastroenterology [CONS] Routine Consulting Provider: Gastroenterology Rosalinda Reason for Consult: EGD. Coffee ground emesis Tuesday, Hgb dropping from 10 to 7.2 most recent. Will get blood. Time Notified: 09:38 Call Completed: Yes 01/04/18 14:30 Consult to Wound Care [CONS] Routine Reason for Consult: wound to right ankle, need this assesed and treated. Call Completed: No 01/05/18 14:28 Consult to Pre Fabricator [CONS] Routine Reason for SW Consult: Set up home healthcare and wound care air mattress. Please coordinate with wound care. Planned dc date tomorrow. Discharging clinician: Maykel Bacon Anticipated date of discharge: 01/07/18 - Constitutional Vitals: Temp Pulse Resp BP Pulse Ox 97.9 F 70 20 129/71 96 01/07/18 14:28 01/07/18 14:28 01/07/18 14:28 01/07/18 14:28 01/07/18 11:43 General appearance: Present: cooperative, A&O X 3, pleasant, no acute distress, answers questions appropriately Exam: awake - Head Head exam: Present: atraumatic, normocephalic - Eye Eye exam: Present: EOMI, conjuntiva pink, sclera anicteric - ENT ENT exam: Present: mucous membranes moist, normal oropharynx - Neck Neck exam general surgery: Present: supple, trachea midline. Absent: lym phadenopathy - Respiratory Respiratory exam: Present: CTAB. Absent: accessory muscle use, rales, rhonchi, wheezes - Cardiovascular Cardiovascular exam: Present: RRR, +S1, +S2. Absent: diastolic murmur, gallop, rubs, systolic murmur - GI/Abdominal GI/Abdominal exam: Present: normal bowel sounds, soft, no peritoneal signs. Absent: distended, tenderness (Suprapubic catheter in place) - Extremities Exam Extremities exam: Present: warm, radial pulses palpable and symmetrical. Absent: calf tenderness, cyanotic, pedal edema (Left BKA, dressing intact) - Neurological Exam Neurological exam: Present: oriented X3, no focal deficits (Bedbound). Absent: facial droop, speech deficit - Psychiatric Psychiatric exam: Present: normal affect, normal mood - Skin Skin exam: Present: dry (Left BKA dressing intact, no bleeding), warm - Patient Status Disposition: Home Health Service Condition: Fair Functional capacity at discharge: bed bound Overall status at discharge: patient is progressing back to baseline - Discharge Instructions Instructions: Miconazole/Zinc Oxide/White Petrolatum (On the skin), Diabetes Mellitus Type 2 in Adults (DC) Follow Up With: Troy Parker MD [Partnered Physician] - 01/13/18 10:45 am Mely Gray MD [Partnered Physician] - 01/13/18 2:15 pm - Diet and Activity Activity: as per physical therapy Diet: diabetic diet <Maykel Bacon - Last Filed: 01/07/18 19:08> Orders not resulted at time of discharge: Pending orders 01/03/18 15:38 Surgical Pathology [PTH] Routine 01/05/18 12:21 Cytology [PTH] Routine - Discharge Diagnosis (1) Neuropathic pain Status: Chronic (2) Infected wound Status: Resolved (3) Diabetes mellitus Status: Chronic Qualifiers: Diabetes mellitus type: type 2 Diabetes mellitus custodial insulin use: without technician terminal and repeater use Diabetes mellitus complication status: with skin complications Diabetes mellitus complication detail: with foot ulcer Qualified Code(s): E11.621 - Type 2 diabetes mellitus with foot ulcer; L97.509 - Non-pressure chronic ulcer of other part of unspecified foot with unspecified severity (4) Paraplegia Status: Chronic (5) Acute kidney injury Status: Acute (6) Unilateral AKA Status: Acute Hospital course: Mr. Donis is a 72 year old male - Time Spent with Patient Total time spent providing and/or coordinating discharge services: 28min Date of admission: 01/01/18 12:54 Primary care physician: PCP NONE Consults: 01/01/18 14:15 Consult to Surgery [CONS] Routine Consulting Provider: Africa Mendoza Reason for Consult: left heel necrotic wound, was scheduled for left aka by Dr Parker 01/05, please eval for further treatment recs and intervention, thank you Time Notified: 14:15 Call Completed: Yes 01/04/18 09:36 Consult to Gastroenterology [CONS] Routine Consulting Provider: Gastroenterology Rosalinda Reason for Consult: EGD. Coffee ground emesis Tuesday, Hgb dropping from 10 to 7.2 most recent. Will get blood. Time Notified: 09:38 Call Completed: Yes 01/04/18 14:30 Consult to Wound Care [CONS] Routine Reason for Consult: wound to right ankle, need this assesed and treated. Call Completed: No 01/05/18 14:28 Consult to Pre Fabricator [CONS] Routine Reason for SW Consult: Set up home healthcare and wound care air mattress. Please coordinate with wound care. Planned dc date tomorrow. - Constitutional Vitals: Temp Pulse Resp BP Pulse Ox 97.9 F 70 20 129/71 96 01/07/18 14:28 01/07/18 14:28 01/07/18 14:28 01/07/18 14:28 01/07/18 11:43 - Attending Attestation I examined this patient and my medical decision-making was reviewed with the Resident Physician on 01/07/18. I agree with the documented findings, disposition and treatment plan as described except to the extent set forth below. Mr Donis has been admitted for infected foot ulcer and has had AKA on L. He developed some renal failure post op but has had good urine output. His creatinine is beginning to improve. He is afebrile and ready for discharge home. He will need his renal function rechecked in near future. Exam Alert Comfortable Mucus membranes dry Heart reg No wheeze Dressing intact Plan D/C home today [facility] Outpatient follow up Follow renal function.
== END 2018-01-07 18:45 | disposition home health service (06) | DRG 474 ==
LOC: 2NENU 12:54 → SUATTDRO 12:54
PROVIDERS: ADMIT Internal Medicine Nephrology; ATTEND Internal Medicine

== ENCOUNTER 2019-01-15 09:47 | Inpatient (IN) ==
[2019-01-15 10:51] LABS: Basophils # 0.1 K/mcL (0.0-0.2); Basophils % 0.9 %; Eosinophils # 0.8 K/mcL (0.0-0.6); Hematocrit 35.7 % (37.5-50.1); Hemoglobin 11.5 g/dL (12.9-16.9); Immature Granulocytes % 0.8 % (0-4); Lymphocytes # 0.9 K/mcL (0.6-4.6); Mean Corpuscular HGB Conc 32.2 g/dL (31.6-35.5); Mean Corpuscular Hemoglobin 24.3 pg (28.0-33.3); Mean Corpuscular Volume 75.5 fL (83.0-100.0); Mean Platelet Volume 8.5 fL (9.4-12.4); Monocytes # 0.8 K/mcL (0.0-1.3); Monocytes % 8.6 %; Neutrophils # 6.5 K/mcL (1.6-8.9); Platelet Count 558 K/mcL (140-400); Red Blood Count 4.73 M/mcL (4.19-5.50); Red Cell Distribution Width 19.3 % (11.5-14.5); Segmented Neutrophils % 70.7 %; White Blood Count 9.2 K/mcL (4.3-11.1)
[2019-01-15 11:11] LABS: Alanine Aminotransferase 15 Units/L (7-52); Albumin 3.9 g/dL (3.5-5.7); Alkaline Phosphatase 111 Units/L (34-104); Aspartate Amino Transferase 13 Units/L (13-39); BUN/Creatinine Ratio 20 (6-26); Bilirubin,Total 0.3 mg/dL (0.3-1.0); Blood Urea Nitrogen 17 mg/dL (8-23); Calcium 9.6 mg/dL (8.6-10.3); Carbon Dioxide 29 mEq/L (23-29); Chloride 93 mEq/L (98-107); Globulin 4.1 g/dL (2.4-3.5); Glucose 119 mg/dL (70-105); Osmolality,Calculated 275 (280-300); Potassium 3.8 mEq/L (3.5-5.1); Sodium 131 mEq/L (136-145); eGFR For African Americans > 60 (> 60); eGFR For Non-African Americans > 60 (> 60)
[2019-01-15] MEDS ORDERED: Naloxone 0.4 MG/ML INJ IVP PRN (11:38)
[2019-01-15] MEDS ORDERED: Ondansetron 4 MG/2 ML VIAL IVP PRN (11:38)
[2019-01-15] MEDS ORDERED: *HR* Dextrose 50 % in Water (Syg) 50 ML SYRINGE IVP PRN (11:39)
[2019-01-15] MEDS ORDERED: Dextrose Gel 15 GM/37.5 ML TUBE PO PRN ×2 (11:39)
[2019-01-15] MEDS ORDERED: D5% in Water 1,000 ML IVC PRN (11:39)
[2019-01-15 11:45] LABS: INR 1.1
[2019-01-15 12:21] LABS: Estimated Average Glucose 148 mg/dl
[2019-01-15] MEDS: Insulin LISPRO 300 UNITS/3 ML VIAL SQ SCH ×2 (13:41→18:36)
[2019-01-15] MEDS: Famotidine 20 MG TABLET PO SCH (20:17)
[2019-01-15] MEDS: Gabapentin 400 MG CAPSULE PO SCH (20:18)
[2019-01-16] MEDS: Insulin LISPRO 300 UNITS/3 ML VIAL SQ SCH ×4 (01:06→19:49)
[2019-01-16 07:00] LABS: Basophils # 0.1 K/mcL (0.0-0.2); Basophils % 0.6 %; Eosinophils % 11.8 %; Hematocrit 31.4 % (37.5-50.1); Hemoglobin 10.1 g/dL (12.9-16.9); Immature Granulocytes % 0.7 % (0-4); Lymphocytes # 0.9 K/mcL (0.6-4.6); Lymphocytes % 10.7 %; Mean Corpuscular HGB Conc 32.2 g/dL (31.6-35.5); Mean Corpuscular Hemoglobin 24.6 pg (28.0-33.3); Mean Corpuscular Volume 76.4 fL (83.0-100.0); Mean Platelet Volume 8.7 fL (9.4-12.4); Monocytes # 0.8 K/mcL (0.0-1.3); Monocytes % 9.3 %; Neutrophils # 5.7 K/mcL (1.6-8.9); Platelet Count 488 K/mcL (140-400); Red Blood Count 4.11 M/mcL (4.19-5.50); Red Cell Distribution Width 19.4 % (11.5-14.5); Segmented Neutrophils % 66.9 %; White Blood Count 8.5 K/mcL (4.3-11.1)
[2019-01-16 07:29] LABS: BUN/Creatinine Ratio 20 (6-26); Blood Urea Nitrogen 18 mg/dL (8-23); Calcium 9.1 mg/dL (8.6-10.3); Carbon Dioxide 27 mEq/L (23-29); Chloride 95 mEq/L (98-107); Glucose 118 mg/dL (70-105); Osmolality,Calculated 279 (280-300); Potassium 3.8 mEq/L (3.5-5.1); Sodium 133 mEq/L (136-145); eGFR For African Americans > 60 (> 60); eGFR For Non-African Americans > 60 (> 60)
[2019-01-16] MEDS: Metoprolol XL (24 HR) Succ 25 MG TAB.ER.24H PO SCH (09:44)
[2019-01-16] MEDS: hydroCHLOROthiazide 25 MG TABLET PO SCH (09:45)
[2019-01-16] MEDS: Gabapentin 400 MG CAPSULE PO SCH ×3 (09:46→22:26)
[2019-01-16 11:09] LABS: C-Reactive Protein 14 mg/L (Less than 10)
[2019-01-16] MEDS ORDERED: *HR* FentaNYL (PF) 100 MCG/2 ML VIAL ONE (14:13)
[2019-01-16] MEDS ORDERED: *HR* Propofol 200 MG/20 ML VIAL IVP ONE ×2 (14:13→18:36)
[2019-01-16] MEDS ORDERED: Ondansetron 4 MG/2 ML VIAL ONE (14:14)
[2019-01-16] MEDS ORDERED: Dexamethasone 4 MG/ML VIAL ONE (14:14)
[2019-01-16] MEDS ORDERED: Lidocaine -MPF 2% 2 ML VIAL ONE (14:14)
[2019-01-16] MEDS ORDERED: Famotidine 20 MG/2 ML VIAL ONE (14:27)
[2019-01-16] MEDS ORDERED: Acetaminophen IV 1,000 MG/100 ML INFUS..BTL ONE (14:27)
[2019-01-16] MEDS ORDERED: Propofol 500 MG/50 ML INFUS..BTL ONE ×2 (16:31→17:30)
[2019-01-16] MEDS ORDERED: *HR* PHENYLEPHRINE 1,000 MCG/10 ML SYRINGE IVP ONE ×3 (16:43→18:18)
[2019-01-16] MEDS: *HR* Heparin 5,000 UNIT/ML VIAL SQ SCH (18:09)
[2019-01-16] MEDS ORDERED: Clindamycin 900 MG/50 ML 900 MG/50 ML IV.SOLN IVPB ONE (18:52)
[2019-01-16] MEDS ORDERED: 0.9 % Sodium Chloride 1,000 ML ONE (20:22)
[2019-01-16] MEDS ORDERED: 0.9 % Sodium Chloride 1,000 ML IVC ONE (20:24)
[2019-01-16 20:51] LABS: Basophils # 0.1 K/mcL (0.0-0.2); Basophils % 0.8 %; Eosinophils # 1.3 K/mcL (0.0-0.6); Eosinophils % 10.7 %; Hematocrit 32.3 % (37.5-50.1); Hemoglobin 10.3 g/dL (12.9-16.9); Immature Granulocytes % 0.9 % (0-4); Lymphocytes # 2.5 K/mcL (0.6-4.6); Lymphocytes % 19.9 %; Mean Corpuscular HGB Conc 31.9 g/dL (31.6-35.5); Mean Corpuscular Hemoglobin 24.3 pg (28.0-33.3); Mean Corpuscular Volume 76.4 fL (83.0-100.0); Mean Platelet Volume 8.7 fL (9.4-12.4); Monocytes # 1.2 K/mcL (0.0-1.3); Monocytes % 9.4 %; Neutrophils # 7.3 K/mcL (1.6-8.9); Platelet Count 694 K/mcL (140-400); Red Blood Count 4.23 M/mcL (4.19-5.50); Red Cell Distribution Width 19.5 % (11.5-14.5); Segmented Neutrophils % 58.3 %; White Blood Count 12.5 K/mcL (4.3-11.1)
[2019-01-16 20:58] LABS: INR 1.2; Prothrombin Time 13.2 Seconds (9.4-12.1)
[2019-01-16] MEDS ORDERED: Ringers Solution, Lactated 1,000 ML ONE (21:39)
[2019-01-16] MEDS ORDERED: Ringers Solution, Lactated 1,000 ML IVC SCH (21:45)
[2019-01-16] MEDS: Famotidine 20 MG TABLET PO SCH (22:27)
[2019-01-17] MEDS: Insulin LISPRO 300 UNITS/3 ML VIAL SQ SCH ×6 (00:49→19:43)
[2019-01-17 01:56] LABS: Hematocrit 25.9 % (37.5-50.1); Hemoglobin 8.8 g/dL (12.9-16.9)
[2019-01-17] MEDS: *HR* Heparin 5,000 UNIT/ML VIAL SQ SCH ×2 (04:59→17:09)
[2019-01-17 05:25] LABS: Hematocrit 25.5 % (37.5-50.1); Hemoglobin 8.1 g/dL (12.9-16.9); Mean Corpuscular HGB Conc 31.8 g/dL (31.6-35.5); Mean Corpuscular Hemoglobin 24.8 pg (28.0-33.3); Mean Platelet Volume 8.6 fL (9.4-12.4); Platelet Count 474 K/mcL (140-400); Red Blood Count 3.27 M/mcL (4.19-5.50); White Blood Count 15.1 K/mcL (4.3-11.1)
[2019-01-17 05:26] LABS: Hematocrit 25.8 % (37.5-50.1); Hemoglobin 8.3 g/dL (12.9-16.9)
[2019-01-17 06:08] LABS: BUN/Creatinine Ratio 25 (6-26); Blood Urea Nitrogen 23 mg/dL (8-23); Calcium 8.5 mg/dL (8.6-10.3); Carbon Dioxide 27 mEq/L (23-29); Chloride 98 mEq/L (98-107); Glucose 131 mg/dL (70-105); Osmolality,Calculated 279 (280-300); Potassium 3.9 mEq/L (3.5-5.1); Sodium 132 mEq/L (136-145); eGFR For African Americans > 60 (> 60); eGFR For Non-African Americans > 60 (> 60)
[2019-01-17] MEDS: Gabapentin 400 MG CAPSULE PO SCH ×3 (09:16→20:16)
[2019-01-17] MEDS: hydroCHLOROthiazide 25 MG TABLET PO SCH (09:16)
[2019-01-17] MEDS: Metoprolol XL (24 HR) Succ 25 MG TAB.ER.24H PO SCH (09:17)
[2019-01-17] MEDS: Aspirin 81 MG TAB.CHEW PO SCH (09:17)
[2019-01-17] MEDS ORDERED: Bisacodyl 10 MG RECTAL SUPPOSITORY RC PRN ×2 (19:28→21:45)
[2019-01-17] MEDS: Famotidine 20 MG TABLET PO SCH (20:17)
[2019-01-18 01:31] LABS: Hematocrit 20.7 % (37.5-50.1); Hemoglobin 6.8 g/dL (12.9-16.9); Mean Corpuscular HGB Conc 32.9 g/dL (31.6-35.5); Mean Corpuscular Hemoglobin 24.6 pg (28.0-33.3); Mean Platelet Volume 8.9 fL (9.4-12.4); Platelet Count 428 K/mcL (140-400); Red Blood Count 2.76 M/mcL (4.19-5.50); Red Cell Distribution Width 19.2 % (11.5-14.5); White Blood Count 8.2 K/mcL (4.3-11.1)
[2019-01-18 01:49] LABS: BUN/Creatinine Ratio 22 (6-26); Blood Urea Nitrogen 22 mg/dL (8-23); Calcium 8.2 mg/dL (8.6-10.3); Carbon Dioxide 26 mEq/L (23-29); Chloride 97 mEq/L (98-107); Glucose 127 mg/dL (70-105); Osmolality,Calculated 277 (280-300); Sodium 131 mEq/L (136-145); eGFR For African Americans > 60 (> 60); eGFR For Non-African Americans > 60 (> 60)
[2019-01-18] MEDS ORDERED: 0.9 % Sodium Chloride 250 ML ONE (02:41)
[2019-01-18] MEDS: *HR* Heparin 5,000 UNIT/ML VIAL SQ SCH ×2 (05:25→16:58)
[2019-01-18 06:41] LABS: Hematocrit 23.9 % (37.5-50.1)
[2019-01-18] MEDS: Insulin LISPRO 300 UNITS/3 ML VIAL SQ SCH ×4 (08:03→21:14)
[2019-01-18] MEDS: Gabapentin 400 MG CAPSULE PO SCH ×3 (08:05→21:14)
[2019-01-18] MEDS: Aspirin 81 MG TAB.CHEW PO SCH (08:05)
[2019-01-18] MEDS: hydroCHLOROthiazide 25 MG TABLET PO SCH (08:08)
[2019-01-18] MEDS: Metoprolol XL (24 HR) Succ 25 MG TAB.ER.24H PO SCH (08:12)
[2019-01-18] MEDS: Bisacodyl 10 MG RECTAL SUPPOSITORY RC SCH (10:32)
[2019-01-18 13:55] LABS: BUN/Creatinine Ratio 18 (6-26); Blood Urea Nitrogen 18 mg/dL (8-23); Calcium 8.5 mg/dL (8.6-10.3); Carbon Dioxide 28 mEq/L (23-29); Chloride 98 mEq/L (98-107); Glucose 119 mg/dL (70-105); Osmolality,Calculated 281 (280-300); Potassium 3.7 mEq/L (3.5-5.1); Sodium 134 mEq/L (136-145); eGFR For African Americans > 60 (> 60); eGFR For Non-African Americans > 60 (> 60)
[2019-01-18] MEDS: Famotidine 20 MG TABLET PO SCH (21:15)
[2019-01-19] MEDS: *HR* Heparin 5,000 UNIT/ML VIAL SQ SCH ×2 (05:52→17:07)
[2019-01-19] MEDS: Gabapentin 400 MG CAPSULE PO SCH ×3 (08:17→16:04)
[2019-01-19] MEDS: Bisacodyl 10 MG RECTAL SUPPOSITORY RC SCH (08:18)
[2019-01-19] MEDS: Aspirin 81 MG TAB.CHEW PO SCH (08:18)
[2019-01-19] MEDS: Insulin LISPRO 300 UNITS/3 ML VIAL SQ SCH ×4 (08:18→20:38)
[2019-01-19] MEDS: hydroCHLOROthiazide 25 MG TABLET PO SCH (08:19)
[2019-01-19] MEDS: Metoprolol XL (24 HR) Succ 25 MG TAB.ER.24H PO SCH (08:19)
[2019-01-19] MEDS ORDERED: Lidocaine -MPF 1% 5 ML AMPUL INFILT ONE (09:00)
[2019-01-19 09:07] LABS: BUN/Creatinine Ratio 16 (6-26); Blood Urea Nitrogen 13 mg/dL (8-23); eGFR For African Americans > 60 (> 60); eGFR For Non-African Americans > 60 (> 60)
[2019-01-19] MEDS: Cefepime HCl 2,000 MG in 0.9 % Sodium Chloride Mini Bag 100 ML IVPB SCH ×2 (13:14→17:37)
[2019-01-19 15:05] LABS: Hematocrit 24.4 % (37.5-50.1); Mean Corpuscular HGB Conc 32.8 g/dL (31.6-35.5); Mean Corpuscular Hemoglobin 25.8 pg (28.0-33.3); Mean Corpuscular Volume 78.7 fL (83.0-100.0); Platelet Count 413 K/mcL (140-400); Red Cell Distribution Width 19.4 % (11.5-14.5); White Blood Count 7.8 K/mcL (4.3-11.1)
[2019-01-19 15:24] LABS: BUN/Creatinine Ratio 16 (6-26); Blood Urea Nitrogen 13 mg/dL (8-23); Calcium 8.4 mg/dL (8.6-10.3); Carbon Dioxide 26 mEq/L (23-29); Chloride 97 mEq/L (98-107); Glucose 126 mg/dL (70-105); Osmolality,Calculated 274 (280-300); Potassium 3.8 mEq/L (3.5-5.1); Sodium 131 mEq/L (136-145); eGFR For African Americans > 60 (> 60); eGFR For Non-African Americans > 60 (> 60)
[2019-01-19] MEDS: Famotidine 20 MG TABLET PO SCH (20:39)
[2019-01-20 04:12] LABS: Hematocrit 22.4 % (37.5-50.1); Hemoglobin 7.4 g/dL (12.9-16.9); Mean Corpuscular Hemoglobin 26.1 pg (28.0-33.3); Mean Corpuscular Volume 78.9 fL (83.0-100.0); Mean Platelet Volume 8.6 fL (9.4-12.4); Platelet Count 343 K/mcL (140-400); Red Blood Count 2.84 M/mcL (4.19-5.50); Red Cell Distribution Width 19.8 % (11.5-14.5); White Blood Count 7.8 K/mcL (4.3-11.1)
[2019-01-20 04:46] LABS: BUN/Creatinine Ratio 16 (6-26); Blood Urea Nitrogen 13 mg/dL (8-23); Calcium 8.2 mg/dL (8.6-10.3); Carbon Dioxide 24 mEq/L (23-29); Chloride 99 mEq/L (98-107); Glucose 123 mg/dL (70-105); Osmolality,Calculated 271 (280-300); Potassium 3.6 mEq/L (3.5-5.1); Sodium 130 mEq/L (136-145); eGFR For African Americans > 60 (> 60); eGFR For Non-African Americans > 60 (> 60)
[2019-01-20] MEDS: *HR* Heparin 5,000 UNIT/ML VIAL SQ SCH ×2 (05:38→17:20)
[2019-01-20] MEDS: Cefepime HCl 2,000 MG in 0.9 % Sodium Chloride Mini Bag 100 ML IVPB SCH ×2 (05:39→17:22)
[2019-01-20] MEDS: Insulin LISPRO 300 UNITS/3 ML VIAL SQ SCH ×4 (08:20→19:56)
[2019-01-20] MEDS: Metoprolol XL (24 HR) Succ 25 MG TAB.ER.24H PO SCH (08:21)
[2019-01-20] MEDS: Gabapentin 400 MG CAPSULE PO SCH ×3 (08:21→19:46)
[2019-01-20] MEDS: hydroCHLOROthiazide 25 MG TABLET PO SCH (08:22)
[2019-01-20] MEDS: Aspirin 81 MG TAB.CHEW PO SCH (08:22)
[2019-01-20] MEDS: Bisacodyl 10 MG RECTAL SUPPOSITORY RC SCH (08:24)
[2019-01-20] MEDS: Famotidine 20 MG TABLET PO SCH (19:46)
[2019-01-21 04:19] LABS: Hematocrit 21.5 % (37.5-50.1); Hemoglobin 6.7 g/dL (12.9-16.9); Mean Corpuscular HGB Conc 31.2 g/dL (31.6-35.5); Mean Corpuscular Hemoglobin 25.6 pg (28.0-33.3); Mean Corpuscular Volume 82.1 fL (83.0-100.0); Mean Platelet Volume 8.7 fL (9.4-12.4); Platelet Count 350 K/mcL (140-400); Red Blood Count 2.62 M/mcL (4.19-5.50); Red Cell Distribution Width 19.6 % (11.5-14.5); White Blood Count 9.1 K/mcL (4.3-11.1)
[2019-01-21 04:39] LABS: BUN/Creatinine Ratio 17 (6-26); Blood Urea Nitrogen 15 mg/dL (8-23); Carbon Dioxide 24 mEq/L (23-29); Chloride 100 mEq/L (98-107); Glucose 125 mg/dL (70-105); Osmolality,Calculated 272 (280-300); Potassium 3.3 mEq/L (3.5-5.1); Sodium 130 mEq/L (136-145); eGFR For African Americans > 60 (> 60); eGFR For Non-African Americans > 60 (> 60)
[2019-01-21] MEDS: Cefepime HCl 2,000 MG in 0.9 % Sodium Chloride Mini Bag 100 ML IVPB SCH ×2 (05:36→17:31)
[2019-01-21] MEDS: *HR* Heparin 5,000 UNIT/ML VIAL SQ SCH ×2 (05:37→17:34)
[2019-01-21] MEDS ORDERED: 0.9 % Sodium Chloride 250 ML ONE ×2 (06:40→11:47)
[2019-01-21] MEDS: Insulin LISPRO 300 UNITS/3 ML VIAL SQ SCH ×4 (08:15→20:53)
[2019-01-21] MEDS: Bisacodyl 10 MG RECTAL SUPPOSITORY RC SCH (09:26)
[2019-01-21] MEDS: hydroCHLOROthiazide 25 MG TABLET PO SCH (09:27)
[2019-01-21] MEDS: Metoprolol XL (24 HR) Succ 25 MG TAB.ER.24H PO SCH (09:27)
[2019-01-21] MEDS: Aspirin 81 MG TAB.CHEW PO SCH (09:27)
[2019-01-21] MEDS: Gabapentin 400 MG CAPSULE PO SCH ×3 (09:27→19:49)
[2019-01-21 16:38] LABS: Hematocrit 28.1 % (37.5-50.1)
[2019-01-21 16:39] LABS: Hemoglobin 9.5 g/dL (12.9-16.9)
[2019-01-21] MEDS: Famotidine 20 MG TABLET PO SCH (19:50)
[2019-01-22 03:38] LABS: Basophils % 0.2 %; Eosinophils # 1.4 K/mcL (0.0-0.6); Eosinophils % 13.9 %; Hematocrit 28.8 % (37.5-50.1); Hemoglobin 9.5 g/dL (12.9-16.9); Immature Granulocytes % 1.3 % (0-4); Lymphocytes # 0.7 K/mcL (0.6-4.6); Lymphocytes % 6.6 %; Mean Corpuscular Hemoglobin 27.4 pg (28.0-33.3); Mean Platelet Volume 8.7 fL (9.4-12.4); Monocytes # 0.9 K/mcL (0.0-1.3); Monocytes % 8.8 %; Neutrophils # 6.8 K/mcL (1.6-8.9); Platelet Count 376 K/mcL (140-400); Red Blood Count 3.47 M/mcL (4.19-5.50); Red Cell Distribution Width 18.5 % (11.5-14.5); Segmented Neutrophils % 69.2 %; White Blood Count 9.8 K/mcL (4.3-11.1)
[2019-01-22 04:03] LABS: BUN/Creatinine Ratio 17 (6-26); Blood Urea Nitrogen 13 mg/dL (8-23); Calcium 8.2 mg/dL (8.6-10.3); Carbon Dioxide 26 mEq/L (23-29); Chloride 101 mEq/L (98-107); Glucose 115 mg/dL (70-105); Osmolality,Calculated 273 (280-300); Potassium 3.5 mEq/L (3.5-5.1); Sodium 131 mEq/L (136-145); eGFR For African Americans > 60 (> 60); eGFR For Non-African Americans > 60 (> 60)
[2019-01-22] MEDS: *HR* Heparin 5,000 UNIT/ML VIAL SQ SCH ×2 (05:52→17:38)
[2019-01-22] MEDS: Cefepime HCl 2,000 MG in 0.9 % Sodium Chloride Mini Bag 100 ML IVPB SCH (05:52)
[2019-01-22] MEDS: Insulin LISPRO 300 UNITS/3 ML VIAL SQ SCH ×4 (08:31→21:41)
[2019-01-22] MEDS: Aspirin 81 MG TAB.CHEW PO SCH (08:32)
[2019-01-22] MEDS: Gabapentin 400 MG CAPSULE PO SCH ×3 (08:32→21:41)
[2019-01-22] MEDS: Bisacodyl 10 MG RECTAL SUPPOSITORY RC SCH (08:32)
[2019-01-22] MEDS: Metoprolol XL (24 HR) Succ 25 MG TAB.ER.24H PO SCH (08:32)
[2019-01-22] MEDS: hydroCHLOROthiazide 25 MG TABLET PO SCH (09:00)
[2019-01-22] MEDS: Meropenem 1,000 MG in 0.9 % Sodium Chloride Mini Bag 100 ML IVPB SCH ×2 (15:30→23:20)
[2019-01-22] MEDS: Famotidine 20 MG TABLET PO SCH (21:40)
[2019-01-23 04:05] LABS: Basophils % 0.4 %; Eosinophils # 1.5 K/mcL (0.0-0.6); Eosinophils % 14.6 %; Hematocrit 27.8 % (37.5-50.1); Hemoglobin 9.1 g/dL (12.9-16.9); Immature Granulocytes % 1.8 % (0-4); Lymphocytes # 0.7 K/mcL (0.6-4.6); Mean Corpuscular HGB Conc 32.7 g/dL (31.6-35.5); Mean Corpuscular Hemoglobin 26.2 pg (28.0-33.3); Mean Corpuscular Volume 80.1 fL (83.0-100.0); Mean Platelet Volume 8.7 fL (9.4-12.4); Monocytes % 9.6 %; Neutrophils # 6.8 K/mcL (1.6-8.9); Platelet Count 420 K/mcL (140-400); Red Blood Count 3.47 M/mcL (4.19-5.50); Red Cell Distribution Width 18.5 % (11.5-14.5); Segmented Neutrophils % 66.6 %; White Blood Count 10.1 K/mcL (4.3-11.1)
[2019-01-23 04:23] LABS: BUN/Creatinine Ratio 19 (6-26); Blood Urea Nitrogen 13 mg/dL (8-23); Calcium 8.1 mg/dL (8.6-10.3); Carbon Dioxide 24 mEq/L (23-29); Chloride 101 mEq/L (98-107); Glucose 106 mg/dL (70-105); Osmolality,Calculated 277 (280-300); Potassium 3.6 mEq/L (3.5-5.1); Sodium 133 mEq/L (136-145); eGFR For African Americans > 60 (> 60); eGFR For Non-African Americans > 60 (> 60)
[2019-01-23] MEDS: *HR* Heparin 5,000 UNIT/ML VIAL SQ SCH ×2 (05:33→17:08)
[2019-01-23] MEDS: Bisacodyl 10 MG RECTAL SUPPOSITORY RC SCH (07:17)
[2019-01-23] MEDS: Insulin LISPRO 300 UNITS/3 ML VIAL SQ SCH ×4 (07:26→21:07)
[2019-01-23] MEDS: Meropenem 1,000 MG in 0.9 % Sodium Chloride Mini Bag 100 ML IVPB SCH ×3 (07:26→23:41)
[2019-01-23] MEDS: Aspirin 81 MG TAB.CHEW PO SCH (07:30)
[2019-01-23] MEDS: Gabapentin 400 MG CAPSULE PO SCH ×3 (07:31→21:07)
[2019-01-23] MEDS: hydroCHLOROthiazide 25 MG TABLET PO SCH (07:31)
[2019-01-23] MEDS: Metoprolol XL (24 HR) Succ 25 MG TAB.ER.24H PO SCH (07:32)
[2019-01-23] MEDS: Famotidine 20 MG TABLET PO SCH (21:07)
[2019-01-24] MEDS: *HR* Heparin 5,000 UNIT/ML VIAL SQ SCH (05:50)
[2019-01-24 06:08] LABS: Basophils # 0.1 K/mcL (0.0-0.2); Basophils % 0.7 %; Hematocrit 27.5 % (37.5-50.1); Hemoglobin 9.1 g/dL (12.9-16.9); Lymphocytes # 0.7 K/mcL (0.6-4.6); Lymphocytes % 8.6 %; Mean Corpuscular HGB Conc 33.1 g/dL (31.6-35.5); Mean Corpuscular Volume 81.6 fL (83.0-100.0); Mean Platelet Volume 8.6 fL (9.4-12.4); Monocytes # 0.8 K/mcL (0.0-1.3); Monocytes % 9.4 %; Neutrophils # 5.7 K/mcL (1.6-8.9); Platelet Count 430 K/mcL (140-400); Red Blood Count 3.37 M/mcL (4.19-5.50); Red Cell Distribution Width 18.7 % (11.5-14.5); Segmented Neutrophils % 67.3 %; White Blood Count 8.5 K/mcL (4.3-11.1)
[2019-01-24 06:31] LABS: BUN/Creatinine Ratio 15 (6-26); Blood Urea Nitrogen 13 mg/dL (8-23); Calcium 8.3 mg/dL (8.6-10.3); Carbon Dioxide 27 mEq/L (23-29); Chloride 102 mEq/L (98-107); Glucose 116 mg/dL (70-105); Osmolality,Calculated 281 (280-300); Potassium 3.7 mEq/L (3.5-5.1); Sodium 135 mEq/L (136-145); eGFR For African Americans > 60 (> 60); eGFR For Non-African Americans > 60 (> 60)
[2019-01-24] MEDS: Meropenem 1,000 MG in 0.9 % Sodium Chloride Mini Bag 100 ML IVPB SCH (07:48)
[2019-01-24] MEDS: Bisacodyl 10 MG RECTAL SUPPOSITORY RC SCH (07:51)
[2019-01-24] MEDS: Aspirin 81 MG TAB.CHEW PO SCH (07:51)
[2019-01-24] MEDS: hydroCHLOROthiazide 25 MG TABLET PO SCH (07:52)
[2019-01-24] MEDS: Gabapentin 400 MG CAPSULE PO SCH (07:52)
[2019-01-24] MEDS: Metoprolol XL (24 HR) Succ 25 MG TAB.ER.24H PO SCH (07:52)
[2019-01-24] MEDS: Insulin LISPRO 300 UNITS/3 ML VIAL SQ SCH ×2 (08:08→12:05)
[2019-01-24 12:48] VITALS: BP 120/69
== END 2019-01-24 14:24 | DRG 623 ==
LOC: 3ANU 09:47 → EMEROOARM 09:47 → SUATTDRO 11:48 → 3ANU 12:09 → 2NNU 01-16 21:50 → SUATTDRO 01-17 09:35 → 3ANU 01-22 20:18
PROVIDERS: ADMIT Internal Medicine; ATTEND Internal Medicine

== ENCOUNTER 2019-04-13 10:41 | Inpatient (IN) ==
[2019-04-13] MEDS ORDERED: Ringers Solution, Lactated 1,000 ML IVC ONE (14:45)
[2019-04-13] MEDS ORDERED: Naloxone 0.4 MG/ML INJ IVP PRN (16:33)
[2019-04-13] MEDS ORDERED: Ondansetron 4 MG/2 ML VIAL IVP PRN (16:33)
[2019-04-13] MEDS ORDERED: Isovue-370 500 ML BOTTLE IVP ONE (16:43)
[2019-04-13] MEDS ORDERED: Nitroglycerin 0.4 MG TAB.SUBL SL PRN (16:47)
[2019-04-13] MEDS ORDERED: Triamcinolone Acet 0.1% CRM 15 GM TUBE TP PRN (16:47)
[2019-04-13] MEDS ORDERED: 0.9 % Sodium Chloride 1,000 ML IV ONE (16:58)
[2019-04-13 17:36] LABS: Basophils % 0.2 %; Immature Granulocytes % 1.1 % (0-4)
[2019-04-13 17:38] LABS: Eosinophils % 0.1 %; Hematocrit 25.5 % (37.5-50.1); Lymphocytes # 0.2 K/mcL (0.6-4.6); Lymphocytes % 0.6 %; Mean Corpuscular HGB Conc 31.4 g/dL (31.6-35.5); Mean Corpuscular Hemoglobin 23.2 pg (28.0-33.3); Mean Corpuscular Volume 73.9 fL (83.0-100.0); Mean Platelet Volume 8.8 fL (9.4-12.4); Monocytes # 0.7 K/mcL (0.0-1.3); Monocytes % 2.8 %; Neutrophils # 25.3 K/mcL (1.6-8.9); Platelet Count 556 K/mcL (140-400); Red Blood Count 3.45 M/mcL (4.19-5.50); Red Cell Distribution Width 17.5 % (11.5-14.5); Segmented Neutrophils % 95.2 %; White Blood Count 26.6 K/mcL (4.3-11.1)
[2019-04-13 17:41] LABS: Basophils # 0.1 K/mcL (0.0-0.2)
[2019-04-13 17:56] LABS: Alanine Aminotransferase 12 Units/L (7-52); Albumin 3.1 g/dL (3.5-5.7); Albumin/Globulin Ratio 0.9 (1.1-2.2); Alkaline Phosphatase 87 Units/L (34-104); Aspartate Amino Transferase 16 Units/L (13-39); BUN/Creatinine Ratio 17 (6-26); Bilirubin,Direct 0.1 mg/dL (0.0-0.2); Bilirubin,Indirect 0.2 mg/dL (0.0-1.0); Bilirubin,Total 0.3 mg/dL (0.3-1.0); Blood Urea Nitrogen 18 mg/dL (8-23); Calcium 8.2 mg/dL (8.6-10.3); Carbon Dioxide 25 mEq/L (23-29); Chloride 97 mEq/L (98-107); Globulin 3.5 g/dL (2.4-3.5); Glucose 175 mg/dL (70-105); Magnesium 1.5 mg/dL (1.6-2.6); Osmolality,Calculated 282 (280-300); Potassium 3.7 mEq/L (3.5-5.1); Sodium 133 mEq/L (136-145); Total Protein 6.6 g/dL (6.4-8.9); eGFR For African Americans > 60 (> 60); eGFR For Non-African Americans > 60 (> 60)
[2019-04-13] MEDS: Acetaminophen 325 MG TABLET PO PRN (18:31)
[2019-04-13] MEDS: Piperacillin/Tazobactam 3.375 GM in 0.9 % Sodium Chloride Mini Bag 100 ML IVPB SCH (18:33)
[2019-04-13] MEDS ORDERED: D5% in Water 1,000 ML IVC PRN (18:35)
[2019-04-13] MEDS ORDERED: *HR* Dextrose 50 % in Water (Syg) 50 ML SYRINGE IVP PRN (18:35)
[2019-04-13] MEDS ORDERED: Dextrose Gel 15 GM/37.5 ML TUBE PO PRN ×2 (18:35)
[2019-04-13] MEDS ORDERED: Gabapentin 400 MG CAPSULE PO SCH (21:00)
[2019-04-13] MEDS: 0.9 % Sodium Chloride 1,000 ML IVC SCH (21:29)
[2019-04-14] MEDS: *HR* Heparin 5,000 UNIT/ML VIAL SQ SCH ×3 (00:12→17:36)
[2019-04-14] MEDS: Piperacillin/Tazobactam 3.375 GM in 0.9 % Sodium Chloride Mini Bag 100 ML IVPB SCH ×3 (02:09→17:35)
[2019-04-14] MEDS: Acetaminophen 325 MG TABLET PO PRN ×2 (02:18→17:36)
[2019-04-14 02:57] LABS: Acinetobacter baumannii by PCR Not Detected (Not Detect); Candida albicans by PCR Not Detected (Not Detect); Candida glabrata by PCR Not Detected (Not Detect); Candida krusei by PCR Not Detected (Not Detect); Candida parapsilosis by PCR Not Detected (Not Detect); Candida tropicalis by PCR Not Detected (Not Detect); Enterobacter cloacae Cmplx PCR Not Detected (Not Detect); Enterobacteriaceae by PCR Not Detected (Not Detect); Enterococcus by PCR Not Detected (Not Detect); Escherichia coli by PCR Not Detected (Not Detect); Klebsiella oxytoca by PCR Not Detected (Not Detect); Klebsiella pneumoniae by PCR Not Detected (Not Detect); Proteus by PCR Not Detected (Not Detect); Pseudomonas aeruginosa by PCR Not Detected (Not Detect); Serratia marcescens by PCR Not Detected (Not Detect); Staphylococcus aureus by PCR DETECTED (Not Detect); Streptococcus agalactiae(B)PCR Not Detected (Not Detect); Streptococcus by PCR Not Detected (Not Detect); Streptococcus pneumoniae PCR Not Detected (Not Detect); Streptococcus pyogenes (A) PCR Not Detected (Not Detect); mecA Methicillin-Resist Gene DETECTED (Not Detect)
[2019-04-14] MEDS ORDERED: Acetaminophen IV 1,000 MG/100 ML INFUS..BTL IVPB ONE (03:17)
[2019-04-14 03:35] LABS: Basophils % 0.2 %; Hemoglobin 7.6 g/dL (12.9-16.9); Immature Granulocytes % 0.5 % (0-4); Lymphocytes # 0.2 K/mcL (0.6-4.6); Lymphocytes % 0.9 %; Mean Corpuscular HGB Conc 30.4 g/dL (31.6-35.5); Mean Corpuscular Hemoglobin 23.4 pg (28.0-33.3); Mean Corpuscular Volume 76.9 fL (83.0-100.0); Mean Platelet Volume 9.1 fL (9.4-12.4); Monocytes # 0.6 K/mcL (0.0-1.3); Neutrophils # 19.8 K/mcL (1.6-8.9); Platelet Count 464 K/mcL (140-400); Red Blood Count 3.25 M/mcL (4.19-5.50); Red Cell Distribution Width 17.2 % (11.5-14.5); Segmented Neutrophils % 95.4 %; White Blood Count 20.7 K/mcL (4.3-11.1)
[2019-04-14 04:04] LABS: BUN/Creatinine Ratio 20 (6-26); Blood Urea Nitrogen 18 mg/dL (8-23); Calcium 7.9 mg/dL (8.6-10.3); Carbon Dioxide 23 mEq/L (23-29); Chloride 96 mEq/L (98-107); Glucose 143 mg/dL (70-105); Iron < 10 mcg/dL (65-175); Magnesium 1.5 mg/dL (1.6-2.6); Osmolality,Calculated 274 (280-300); Potassium 3.3 mEq/L (3.5-5.1); Sodium 130 mEq/L (136-145); Transferrin 149 mg/dL (203-362); eGFR For African Americans > 60 (> 60); eGFR For Non-African Americans > 60 (> 60)
[2019-04-14 04:17] LABS: Ferritin 110 ng/mL (20-250)
[2019-04-14 04:24] LABS: Folate 20.3 ng/mL (3.0-16.0)
[2019-04-14 04:32] LABS: Anisocytosis 1+ (Not Present); Platelet Estimate Increased (Normal); Poikilocytosis 2+ (Not Present)
[2019-04-14 04:33] LABS: Hypochromasia Present (Not Present)
[2019-04-14] MEDS: Calcium Gluconate 1gm/50mL 1 GM/50 ML BAG IVPB SCH ×2 (06:35→07:21)
[2019-04-14] MEDS: Insulin LISPRO 300 UNITS/3 ML VIAL SQ SCH ×3 (08:40→17:35)
[2019-04-14] MEDS ORDERED: hydroCHLOROthiazide 25 MG TABLET PO SCH ×2 (09:00→11:53)
[2019-04-14] MEDS: 0.9 % Sodium Chloride 1,000 ML IVC SCH ×3 (10:17→22:43)
[2019-04-14] MEDS: Metoprolol XL (24 HR) Succ 25 MG TAB.ER.24H PO SCH (10:19)
[2019-04-14] MEDS: Aspirin Enteric Coated 81 MG Tablet PO SCH (10:20)
[2019-04-14] MEDS: Magnesium Oxide 400 MG TABLET PO SCH ×2 (10:20→20:42)
[2019-04-14] MEDS: Potassium Chloride Elixir 20 MEQ/15 ML UDC PO SCH ×2 (10:26→20:40)
[2019-04-14] MEDS: Insulin DETEMIR 100 UNIT/ML X5UNITS SQ SCH (10:26)
[2019-04-14 10:41] LABS: Estimated Average Glucose 140 mg/dl
[2019-04-14] MEDS: Gabapentin 400 MG CAPSULE PO SCH ×2 (17:36→20:42)
[2019-04-15] MEDS: Piperacillin/Tazobactam 3.375 GM in 0.9 % Sodium Chloride Mini Bag 100 ML IVPB SCH ×3 (01:18→20:09)
[2019-04-15] MEDS: *HR* Heparin 5,000 UNIT/ML VIAL SQ SCH ×4 (01:19→23:06)
[2019-04-15 05:21] LABS: Basophils % 0.2 %; Eosinophils # 0.2 K/mcL (0.0-0.6); Eosinophils % 2.1 %; Hematocrit 23.3 % (37.5-50.1); Hemoglobin 6.9 g/dL (12.9-16.9); Immature Granulocytes % 0.9 % (0-4); Lymphocytes # 0.8 K/mcL (0.6-4.6); Lymphocytes % 9.1 %; Mean Corpuscular HGB Conc 29.6 g/dL (31.6-35.5); Mean Corpuscular Hemoglobin 22.7 pg (28.0-33.3); Mean Corpuscular Volume 76.6 fL (83.0-100.0); Mean Platelet Volume 9.3 fL (9.4-12.4); Monocytes # 0.6 K/mcL (0.0-1.3); Monocytes % 6.7 %; Platelet Count 340 K/mcL (140-400); Red Blood Count 3.04 M/mcL (4.19-5.50)
[2019-04-15 05:37] LABS: Neutrophils # 6.6 K/mcL (1.6-8.9); White Blood Count 8.2 K/mcL (4.3-11.1)
[2019-04-15 05:44] LABS: BUN/Creatinine Ratio 18 (6-26); Blood Urea Nitrogen 16 mg/dL (8-23); Calcium 7.9 mg/dL (8.6-10.3); Carbon Dioxide 24 mEq/L (23-29); Chloride 105 mEq/L (98-107); Glucose 85 mg/dL (70-105); Osmolality,Calculated 274 (280-300); Potassium 4.4 mEq/L (3.5-5.1); Sodium 132 mEq/L (136-145); eGFR For African Americans > 60 (> 60); eGFR For Non-African Americans > 60 (> 60)
[2019-04-15] MEDS: Potassium Chloride Elixir 20 MEQ/15 ML UDC PO SCH ×2 (09:49→20:08)
[2019-04-15] MEDS: Aspirin Enteric Coated 81 MG Tablet PO SCH (09:49)
[2019-04-15] MEDS: Gabapentin 400 MG CAPSULE PO SCH ×3 (09:49→20:08)
[2019-04-15] MEDS: Metoprolol XL (24 HR) Succ 25 MG TAB.ER.24H PO SCH (09:50)
[2019-04-15] MEDS: Insulin LISPRO 300 UNITS/3 ML VIAL SQ SCH ×3 (11:23→16:37)
[2019-04-15] MEDS ORDERED: 0.9 % Sodium Chloride 250 ML IVC SCH (11:45)
[2019-04-15] MEDS: Insulin DETEMIR 100 UNIT/ML X5UNITS SQ SCH (11:55)
[2019-04-15] MEDS ORDERED: 0.9 % Sodium Chloride 250 ML ONE ×2 (13:14→16:12)
[2019-04-15] MEDS ORDERED: Furosemide 40 MG/4 ML VIAL IVP ONE (13:53)
[2019-04-15] MEDS: Acetaminophen 325 MG TABLET PO PRN (17:59)
[2019-04-15 22:01] LABS: Hematocrit 29.8 % (37.5-50.1)
[2019-04-15 22:06] LABS: Hemoglobin 9.6 g/dL (12.9-16.9)
[2019-04-16 02:09] LABS: Hemoglobin 9.6 g/dL (12.9-16.9); Mean Corpuscular Hemoglobin 24.2 pg (28.0-33.3); Mean Corpuscular Volume 78.3 fL (83.0-100.0); Mean Platelet Volume 9.2 fL (9.4-12.4); Platelet Count 373 K/mcL (140-400); Red Blood Count 3.96 M/mcL (4.19-5.50); Red Cell Distribution Width 18.7 % (11.5-14.5); White Blood Count 7.3 K/mcL (4.3-11.1)
[2019-04-16 02:11] LABS: Hematocrit 30.1 % (37.5-50.1); Hemoglobin 9.4 g/dL (12.9-16.9)
[2019-04-16 02:29] LABS: BUN/Creatinine Ratio 16 (6-26); Blood Urea Nitrogen 14 mg/dL (8-23); Calcium 8.2 mg/dL (8.6-10.3); Carbon Dioxide 25 mEq/L (23-29); Chloride 100 mEq/L (98-107); Glucose 77 mg/dL (70-105); Osmolality,Calculated 273 (280-300); Potassium 4.5 mEq/L (3.5-5.1); Sodium 132 mEq/L (136-145); eGFR For African Americans > 60 (> 60); eGFR For Non-African Americans > 60 (> 60)
[2019-04-16] MEDS: Piperacillin/Tazobactam 3.375 GM in 0.9 % Sodium Chloride Mini Bag 100 ML IVPB SCH ×3 (02:57→16:31)
[2019-04-16 05:52] LABS: Hemoglobin 9.9 g/dL (12.9-16.9)
[2019-04-16] MEDS: Cholecalciferol (D-3) 1,000 UNIT (25MCG) TABLET PO SCH (07:59)
[2019-04-16] MEDS: Aspirin Enteric Coated 81 MG Tablet PO SCH (07:59)
[2019-04-16] MEDS: Gabapentin 400 MG CAPSULE PO SCH ×3 (08:00→19:57)
[2019-04-16] MEDS ORDERED: Potassium Chloride Elixir 20 MEQ/15 ML UDC PO SCH (08:00)
[2019-04-16] MEDS: Metoprolol XL (24 HR) Succ 25 MG TAB.ER.24H PO SCH (08:00)
[2019-04-16] MEDS: Insulin DETEMIR 100 UNIT/ML X5UNITS SQ SCH (08:00)
[2019-04-16] MEDS: Insulin LISPRO 300 UNITS/3 ML VIAL SQ SCH ×3 (08:00→16:30)
[2019-04-16] MEDS: *HR* Heparin 5,000 UNIT/ML VIAL SQ SCH ×2 (08:00→19:58)
[2019-04-16] MEDS: Acetaminophen 325 MG TABLET PO PRN (13:42)
[2019-04-17] MEDS: Acetaminophen 325 MG TABLET PO PRN (00:03)
[2019-04-17] MEDS: Piperacillin/Tazobactam 3.375 GM in 0.9 % Sodium Chloride Mini Bag 100 ML IVPB SCH ×4 (00:04→23:20)
[2019-04-17 02:37] LABS: Hematocrit 29.2 % (37.5-50.1); Hemoglobin 9.2 g/dL (12.9-16.9); Mean Corpuscular HGB Conc 31.5 g/dL (31.6-35.5); Mean Corpuscular Hemoglobin 24.4 pg (28.0-33.3); Mean Corpuscular Volume 77.5 fL (83.0-100.0); Mean Platelet Volume 9.2 fL (9.4-12.4); Platelet Count 324 K/mcL (140-400); Red Blood Count 3.77 M/mcL (4.19-5.50); Red Cell Distribution Width 19.1 % (11.5-14.5); White Blood Count 6.4 K/mcL (4.3-11.1)
[2019-04-17 02:58] LABS: BUN/Creatinine Ratio 16 (6-26); Blood Urea Nitrogen 13 mg/dL (8-23); Calcium 8.3 mg/dL (8.6-10.3); Carbon Dioxide 23 mEq/L (23-29); Chloride 102 mEq/L (98-107); Glucose 110 mg/dL (70-105); Osmolality,Calculated 275 (280-300); Potassium 3.9 mEq/L (3.5-5.1); Sodium 132 mEq/L (136-145); eGFR For African Americans > 60 (> 60); eGFR For Non-African Americans > 60 (> 60)
[2019-04-17] MEDS: *HR* Heparin 5,000 UNIT/ML VIAL SQ SCH ×3 (05:10→21:44)
[2019-04-17] MEDS ORDERED: ceFAZolin 1,000 MG, Sodium Chloride IRRigation 1,000 ML IR ONE (06:00)
[2019-04-17] MEDS: Cholecalciferol (D-3) 1,000 UNIT (25MCG) TABLET PO SCH (07:55)
[2019-04-17] MEDS: Aspirin Enteric Coated 81 MG Tablet PO SCH (07:55)
[2019-04-17] MEDS: Gabapentin 400 MG CAPSULE PO SCH ×3 (07:56→19:50)
[2019-04-17] MEDS: Metoprolol XL (24 HR) Succ 25 MG TAB.ER.24H PO SCH (07:56)
[2019-04-17] MEDS: Insulin LISPRO 300 UNITS/3 ML VIAL SQ SCH ×2 (07:59→17:48)
[2019-04-17] MEDS ORDERED: *HR* Labetalol 20 MG/4 ML SYRINGE IVP PRN ×2 (08:54→12:12)
[2019-04-17] MEDS ORDERED: Ondansetron 4 MG/2 ML VIAL IVP ONE ×2 (08:54→12:12)
[2019-04-17] MEDS ORDERED: *HR* HYDROmorphone (PF) 1 MG/ML SYRINGE IVP PRN ×2 (08:54→12:12)
[2019-04-17] MEDS ORDERED: *HR* Promethazine 25 MG/ML VIAL IVP PRN ×2 (08:54→12:12)
[2019-04-17] MEDS ORDERED: *HR* OxyCODONE Immed Rel 5 MG TABLET PO PRN ×2 (08:54→12:12)
[2019-04-17] MEDS ORDERED: Albuterol 2.5 MG/3 ML NEBULIZER IH PRN ×2 (08:54→12:12)
[2019-04-17] MEDS ORDERED: Acetaminophen IV 1,000 MG/100 ML INFUS..BTL ONE (08:59)
[2019-04-17] MEDS ORDERED: Insulin DETEMIR 100 UNIT/ML X5UNITS SQ SCH (09:00)
[2019-04-17] MEDS ORDERED: *HR* PHENYLEPHRINE 1,000 MCG/10 ML SYRINGE IVP ONE (10:48)
[2019-04-17] MEDS ORDERED: *HR* FentaNYL (PF) 100 MCG/2 ML VIAL ONE (11:15)
[2019-04-17] MEDS ORDERED: Naloxone 0.4 MG/ML INJ IVP PRN (12:12)
[2019-04-17] MEDS ORDERED: Dextrose Gel 15 GM/37.5 ML TUBE PO PRN ×2 (12:12)
[2019-04-17] MEDS ORDERED: D5% in Water 1,000 ML IVC PRN (12:12)
[2019-04-17] MEDS ORDERED: 0.9 % Sodium Chloride 250 ML IVC SCH (12:12)
[2019-04-17] MEDS ORDERED: *HR* Dextrose 50 % in Water (Syg) 50 ML SYRINGE IVP PRN (12:12)
[2019-04-17] MEDS ORDERED: Nitroglycerin 0.4 MG TAB.SUBL SL PRN (12:12)
[2019-04-17] MEDS ORDERED: Triamcinolone Acet 0.1% CRM 15 GM TUBE TP PRN (12:12)
[2019-04-17] MEDS: Ondansetron 4 MG/2 ML VIAL IVP PRN (12:26)
[2019-04-17] MEDS: Ringers Solution, Lactated 1,000 ML IVC SCH ×2 (17:49→18:51)
[2019-04-17] MEDS ORDERED: 0.9 % Sodium Chloride 1,000 ML IVC SCH (18:00)
[2019-04-17] MEDS: 0.9 % Sodium Chloride 500 ML IVC SCH ×2 (18:51→19:30)
[2019-04-18] MEDS: *HR* Heparin 5,000 UNIT/ML VIAL SQ SCH ×3 (05:02→21:05)
[2019-04-18] MEDS: Piperacillin/Tazobactam 3.375 GM in 0.9 % Sodium Chloride Mini Bag 100 ML IVPB SCH (08:51)
[2019-04-18] MEDS: Ringers Solution, Lactated 1,000 ML IVC SCH (08:52)
[2019-04-18] MEDS: Acetaminophen 325 MG TABLET PO PRN ×3 (08:53→21:16)
[2019-04-18] MEDS: Aspirin Enteric Coated 81 MG Tablet PO SCH (08:53)
[2019-04-18] MEDS: Cholecalciferol (D-3) 1,000 UNIT (25MCG) TABLET PO SCH (08:53)
[2019-04-18] MEDS: Gabapentin 400 MG CAPSULE PO SCH ×3 (08:53→21:04)
[2019-04-18] MEDS: Metoprolol XL (24 HR) Succ 25 MG TAB.ER.24H PO SCH (08:54)
[2019-04-18] MEDS: Insulin LISPRO 300 UNITS/3 ML VIAL SQ SCH ×3 (08:55→17:32)
[2019-04-18] MEDS: Insulin DETEMIR 100 UNIT/ML X5UNITS SQ SCH (08:58)
[2019-04-18] MEDS: levoFLOXacin 750 MG/150 ML 750 MG/150 ML BAG IVPB SCH (13:03)
[2019-04-18] MEDS: metroNIDAZOLE 500 MG TABLET PO SCH ×2 (14:54→21:05)
[2019-04-18] MEDS ORDERED: Perflutren Lipid Microsphere 1.3 ML in 0.9 % Sodium Chloride 8.7 ML IVP ONE (16:27)
[2019-04-19 00:33] LABS: blaKPC Carbapenem-Resist Gene Not Detected (Not Detect); mecA Methicillin-Resist Gene DETECTED (Not Detect)
[2019-04-19 00:34] LABS: Acinetobacter baumannii by PCR Not Detected (Not Detect); Candida albicans by PCR Not Detected (Not Detect); Candida glabrata by PCR Not Detected (Not Detect); Candida krusei by PCR Not Detected (Not Detect); Candida parapsilosis by PCR Not Detected (Not Detect); Candida tropicalis by PCR Not Detected (Not Detect); Enterobacter cloacae Cmplx PCR Not Detected (Not Detect); Enterobacteriaceae by PCR Not Detected (Not Detect); Enterococcus by PCR Not Detected (Not Detect); Escherichia coli by PCR Not Detected (Not Detect); Klebsiella oxytoca by PCR Not Detected (Not Detect); Klebsiella pneumoniae by PCR Not Detected (Not Detect); Proteus by PCR Not Detected (Not Detect); Pseudomonas aeruginosa by PCR Not Detected (Not Detect); Serratia marcescens by PCR Not Detected (Not Detect); Staphylococcus aureus by PCR DETECTED (Not Detect); Staphylococcus by PCR Not Detected (Not Detect); Streptococcus agalactiae(B)PCR Not Detected (Not Detect); Streptococcus by PCR Not Detected (Not Detect); Streptococcus pneumoniae PCR Not Detected (Not Detect); Streptococcus pyogenes (A) PCR Not Detected (Not Detect); vanA/B Vancomycin-Resist Genes Not Detected (Not Detect)
[2019-04-19] MEDS: Melatonin 3 MG TABLET PO SCH ×2 (02:32→20:29)
[2019-04-19] MEDS: *HR* Heparin 5,000 UNIT/ML VIAL SQ SCH ×3 (05:22→20:54)
[2019-04-19] MEDS ORDERED: *HR* OxyCODONE Immed Rel 5 MG TABLET PO PRN (07:57)
[2019-04-19] MEDS: Cholecalciferol (D-3) 1,000 UNIT (25MCG) TABLET PO SCH (08:24)
[2019-04-19] MEDS: Metoprolol XL (24 HR) Succ 25 MG TAB.ER.24H PO SCH (08:24)
[2019-04-19] MEDS: Aspirin Enteric Coated 81 MG Tablet PO SCH (08:24)
[2019-04-19] MEDS: metroNIDAZOLE 500 MG TABLET PO SCH (08:25)
[2019-04-19] MEDS: Gabapentin 400 MG CAPSULE PO SCH ×3 (08:25→20:29)
[2019-04-19] MEDS: levoFLOXacin 750 MG/150 ML 750 MG/150 ML BAG IVPB SCH (08:40)
[2019-04-19] MEDS: Insulin DETEMIR 100 UNIT/ML X5UNITS SQ SCH (08:42)
[2019-04-19] MEDS: Insulin LISPRO 300 UNITS/3 ML VIAL SQ SCH ×3 (08:42→16:55)
[2019-04-19 09:03] LABS: Basophils % 0.2 %; Eosinophils % 0.1 %; Hematocrit 23.4 % (37.5-50.1); Immature Granulocytes % 2.8 % (0-4); Lymphocytes # 0.4 K/mcL (0.6-4.6); Lymphocytes % 2.9 %; Mean Corpuscular HGB Conc 31.6 g/dL (31.6-35.5); Mean Corpuscular Hemoglobin 24.8 pg (28.0-33.3); Mean Corpuscular Volume 78.5 fL (83.0-100.0); Mean Platelet Volume 9.7 fL (9.4-12.4); Monocytes # 0.8 K/mcL (0.0-1.3); Monocytes % 5.9 %; Neutrophils # 11.4 K/mcL (1.6-8.9); Platelet Count 284 K/mcL (140-400); Red Blood Count 2.98 M/mcL (4.19-5.50); Red Cell Distribution Width 19.4 % (11.5-14.5); Segmented Neutrophils % 88.1 %
[2019-04-19 09:07] LABS: Hemoglobin 7.4 g/dL (12.9-16.9); White Blood Count 12.9 K/mcL (4.3-11.1)
[2019-04-19 09:22] LABS: BUN/Creatinine Ratio 14 (6-26); Blood Urea Nitrogen 11 mg/dL (8-23); eGFR For African Americans > 60 (> 60); eGFR For Non-African Americans > 60 (> 60)
[2019-04-19 09:46] LABS: BUN/Creatinine Ratio 14 (6-26); Blood Urea Nitrogen 11 mg/dL (8-23); C-Reactive Protein 146 mg/L (Less than 10); Calcium 7.6 mg/dL (8.6-10.3); Carbon Dioxide 25 mEq/L (23-29); Chloride 98 mEq/L (98-107); Glucose 121 mg/dL (70-105); Osmolality,Calculated 273 (280-300); Potassium 3.4 mEq/L (3.5-5.1); Sodium 131 mEq/L (136-145); eGFR For African Americans > 60 (> 60); eGFR For Non-African Americans > 60 (> 60)
[2019-04-19] MEDS: Ringers Solution, Lactated 1,000 ML IVC SCH (10:14)
[2019-04-19] MEDS: *HR* OxyCODONE Oral Soln 5 MG/5 ML UD.LIQ PO PRN (10:22)
[2019-04-19] MEDS: Iron Sucrose Complex 200 MG in 0.9 % Sodium Chloride 100 ML IVPB SCH (12:44)
[2019-04-19] MEDS: Ondansetron 4 MG/2 ML VIAL IVP PRN ×2 (15:03→23:23)
[2019-04-19] MEDS: Acetaminophen 325 MG TABLET PO PRN (15:06)
[2019-04-19] MEDS ORDERED: *HR* HYDROmorphone (PF) 1 MG/ML SYRINGE IVP ONE (15:23)
[2019-04-19] MEDS: Piperacillin/Tazobactam 3.375 GM in 0.9 % Sodium Chloride Mini Bag 100 ML IVPB SCH ×2 (16:28→23:48)
[2019-04-19] MEDS ORDERED: Acetaminophen IV 1,000 MG/100 ML INFUS..BTL IVPB ONE (21:49)
[2019-04-19 21:53] LABS: Hematocrit 22.5 % (37.5-50.1); Hemoglobin 7.3 g/dL (12.9-16.9); Mean Corpuscular HGB Conc 32.4 g/dL (31.6-35.5); Mean Corpuscular Hemoglobin 24.6 pg (28.0-33.3); Mean Corpuscular Volume 75.8 fL (83.0-100.0); Platelet Count 288 K/mcL (140-400); Red Blood Count 2.97 M/mcL (4.19-5.50); Red Cell Distribution Width 19.2 % (11.5-14.5); White Blood Count 12.8 K/mcL (4.3-11.1)
[2019-04-20] MEDS ORDERED: *HR* HYDROmorphone (PF) 1 MG/ML SYRINGE IVP ONE ×2 (00:31→04:37)
[2019-04-20] MEDS: *HR* Promethazine 25 MG/ML VIAL IVP PRN ×3 (04:50→22:11)
[2019-04-20 05:04] LABS: Basophils % 0.2 %; Eosinophils % 0.1 %; Hematocrit 23.3 % (37.5-50.1); Hemoglobin 7.4 g/dL (12.9-16.9); Immature Granulocytes % 4.5 % (0-4); Lymphocytes # 0.4 K/mcL (0.6-4.6); Lymphocytes % 3.8 %; Mean Corpuscular HGB Conc 31.8 g/dL (31.6-35.5); Mean Corpuscular Hemoglobin 24.3 pg (28.0-33.3); Mean Corpuscular Volume 76.4 fL (83.0-100.0); Mean Platelet Volume 9.1 fL (9.4-12.4); Monocytes # 0.9 K/mcL (0.0-1.3); Monocytes % 7.9 %; Neutrophils # 9.3 K/mcL (1.6-8.9); Platelet Count 287 K/mcL (140-400); Red Blood Count 3.05 M/mcL (4.19-5.50); Red Cell Distribution Width 19.3 % (11.5-14.5); Segmented Neutrophils % 83.5 %; White Blood Count 11.2 K/mcL (4.3-11.1)
[2019-04-20] MEDS: *HR* Heparin 5,000 UNIT/ML VIAL SQ SCH (05:24)
[2019-04-20 05:25] LABS: BUN/Creatinine Ratio 16 (6-26); Blood Urea Nitrogen 12 mg/dL (8-23); Calcium 7.8 mg/dL (8.6-10.3); Carbon Dioxide 24 mEq/L (23-29); Chloride 102 mEq/L (98-107); Glucose 119 mg/dL (70-105); Osmolality,Calculated 277 (280-300); Potassium 3.3 mEq/L (3.5-5.1); Sodium 133 mEq/L (136-145); eGFR For African Americans > 60 (> 60); eGFR For Non-African Americans > 60 (> 60)
[2019-04-20] MEDS: Metoprolol XL (24 HR) Succ 25 MG TAB.ER.24H PO SCH (08:35)
[2019-04-20] MEDS: Gabapentin 400 MG CAPSULE PO SCH ×3 (08:35→22:12)
[2019-04-20] MEDS: Aspirin Enteric Coated 81 MG Tablet PO SCH (08:35)
[2019-04-20] MEDS: Cholecalciferol (D-3) 1,000 UNIT (25MCG) TABLET PO SCH (08:36)
[2019-04-20] MEDS: Insulin LISPRO 300 UNITS/3 ML VIAL SQ SCH ×3 (08:37→16:38)
[2019-04-20] MEDS: Insulin DETEMIR 100 UNIT/ML X5UNITS SQ SCH (08:37)
[2019-04-20] MEDS: Iron Sucrose Complex 200 MG in 0.9 % Sodium Chloride 100 ML IVPB SCH (08:47)
[2019-04-20] MEDS: Piperacillin/Tazobactam 3.375 GM in 0.9 % Sodium Chloride Mini Bag 100 ML IVPB SCH ×3 (08:47→23:39)
[2019-04-20] MEDS: Ondansetron 4 MG/2 ML VIAL IVP PRN (08:47)
[2019-04-20] MEDS ORDERED: Isovue-370 500 ML BOTTLE IVP ONE (09:40)
[2019-04-20] MEDS: Gentamicin 90 MG in 0.9 % Sodium Chloride 100 ML IVPB SCH ×2 (11:22→17:56)
[2019-04-20] MEDS: Acetaminophen IV 1,000 MG/100 ML INFUS..BTL IVPB SCH ×4 (11:25→23:10)
[2019-04-20] MEDS: Pantoprazole 40 MG VIAL IVP SCH (11:28)
[2019-04-20] MEDS ORDERED: *HR* Propofol 200 MG/20 ML VIAL IVP ONE (13:51)
[2019-04-20] MEDS ORDERED: Lidocaine -MPF 2% 2 ML VIAL ONE (13:52)
[2019-04-20] MEDS: Melatonin 3 MG TABLET PO SCH (22:12)
[2019-04-21 02:15] LABS: Basophils % 0.2 %; Eosinophils # 0.1 K/mcL (0.0-0.6); Eosinophils % 0.5 %; Hematocrit 21.8 % (37.5-50.1); Hemoglobin 6.7 g/dL (12.9-16.9); Immature Granulocytes % 2.1 % (0-4); Lymphocytes # 0.6 K/mcL (0.6-4.6); Lymphocytes % 5.9 %; Mean Corpuscular HGB Conc 30.7 g/dL (31.6-35.5); Mean Corpuscular Volume 78.1 fL (83.0-100.0); Mean Platelet Volume 9.2 fL (9.4-12.4); Monocytes # 0.9 K/mcL (0.0-1.3); Monocytes % 8.6 %; Neutrophils # 9.1 K/mcL (1.6-8.9); Platelet Count 324 K/mcL (140-400); Red Blood Count 2.79 M/mcL (4.19-5.50); Red Cell Distribution Width 19.2 % (11.5-14.5); Segmented Neutrophils % 82.7 %; White Blood Count 10.9 K/mcL (4.3-11.1)
[2019-04-21 02:22] LABS: BUN/Creatinine Ratio 13 (6-26); Blood Urea Nitrogen 11 mg/dL (8-23); Calcium 7.3 mg/dL (8.6-10.3); Carbon Dioxide 23 mEq/L (23-29); Chloride 102 mEq/L (98-107); Glucose 108 mg/dL (70-105); Osmolality,Calculated 276 (280-300); Potassium 2.8 mEq/L (3.5-5.1); Sodium 133 mEq/L (136-145); eGFR For African Americans > 60 (> 60); eGFR For Non-African Americans > 60 (> 60)
[2019-04-21] MEDS: Gentamicin 90 MG in 0.9 % Sodium Chloride 100 ML IVPB SCH ×4 (02:28→19:04)
[2019-04-21] MEDS: Acetaminophen IV 1,000 MG/100 ML INFUS..BTL IVPB SCH (05:47)
[2019-04-21] MEDS: Aspirin Enteric Coated 81 MG Tablet PO SCH (08:15)
[2019-04-21] MEDS: Gabapentin 400 MG CAPSULE PO SCH ×3 (08:15→20:55)
[2019-04-21] MEDS: Cholecalciferol (D-3) 1,000 UNIT (25MCG) TABLET PO SCH (08:16)
[2019-04-21] MEDS: Pantoprazole 40 MG VIAL IVP SCH (08:16)
[2019-04-21] MEDS: Metoprolol XL (24 HR) Succ 25 MG TAB.ER.24H PO SCH (08:16)
[2019-04-21] MEDS: Piperacillin/Tazobactam 3.375 GM in 0.9 % Sodium Chloride Mini Bag 100 ML IVPB SCH ×2 (08:16→15:56)
[2019-04-21] MEDS: Insulin LISPRO 300 UNITS/3 ML VIAL SQ SCH ×3 (08:33→18:45)
[2019-04-21] MEDS: Insulin DETEMIR 100 UNIT/ML X5UNITS SQ SCH (08:38)
[2019-04-21] MEDS: Iron Sucrose Complex 200 MG in 0.9 % Sodium Chloride 100 ML IVPB SCH (08:45)
[2019-04-21] MEDS ORDERED: Gadolinium Contrast Agent (WT Based) IV PRN (11:12)
[2019-04-21] MEDS: *HR* OxyCODONE Oral Soln 5 MG/5 ML UD.LIQ PO PRN (12:11)
[2019-04-21] MEDS ORDERED: 0.9 % Sodium Chloride 250 ML ONE (13:11)
[2019-04-21] MEDS: Ringers Solution, Lactated 1,000 ML IVC SCH ×3 (15:54→19:31)
[2019-04-21] MEDS: Melatonin 3 MG TABLET PO SCH (20:55)
[2019-04-22] MEDS: *HR* OxyCODONE Oral Soln 5 MG/5 ML UD.LIQ PO PRN ×3 (00:01→20:02)
[2019-04-22] MEDS: Piperacillin/Tazobactam 3.375 GM in 0.9 % Sodium Chloride Mini Bag 100 ML IVPB SCH ×4 (00:01→23:07)
[2019-04-22] MEDS: Gentamicin 90 MG in 0.9 % Sodium Chloride 100 ML IVPB SCH ×3 (02:57→17:13)
[2019-04-22] MEDS: Aspirin Enteric Coated 81 MG Tablet PO SCH (08:11)
[2019-04-22] MEDS: Cholecalciferol (D-3) 1,000 UNIT (25MCG) TABLET PO SCH (08:11)
[2019-04-22] MEDS: Pantoprazole 40 MG VIAL IVP SCH (08:12)
[2019-04-22] MEDS: Gabapentin 400 MG CAPSULE PO SCH ×3 (08:12→20:02)
[2019-04-22] MEDS: Ringers Solution, Lactated 1,000 ML IVC SCH ×2 (08:12→20:26)
[2019-04-22] MEDS: Insulin DETEMIR 100 UNIT/ML X5UNITS SQ SCH (08:15)
[2019-04-22] MEDS: Metoprolol XL (24 HR) Succ 25 MG TAB.ER.24H PO SCH (08:16)
[2019-04-22] MEDS: Iron Sucrose Complex 200 MG in 0.9 % Sodium Chloride 100 ML IVPB SCH (08:21)
[2019-04-22] MEDS: Insulin LISPRO 300 UNITS/3 ML VIAL SQ SCH ×3 (08:29→17:12)
[2019-04-22 09:01] LABS: Hematocrit 23.5 % (37.5-50.1); Hemoglobin 7.4 g/dL (12.9-16.9); Mean Corpuscular HGB Conc 31.5 g/dL (31.6-35.5); Mean Corpuscular Hemoglobin 25.1 pg (28.0-33.3); Mean Corpuscular Volume 79.7 fL (83.0-100.0); Mean Platelet Volume 8.9 fL (9.4-12.4); Platelet Count 344 K/mcL (140-400); Red Blood Count 2.95 M/mcL (4.19-5.50); Red Cell Distribution Width 19.7 % (11.5-14.5); White Blood Count 11.3 K/mcL (4.3-11.1)
[2019-04-22 09:18] LABS: BUN/Creatinine Ratio 11 (6-26); Blood Urea Nitrogen 8 mg/dL (8-23); Calcium 7.2 mg/dL (8.6-10.3); Carbon Dioxide 21 mEq/L (23-29); Chloride 103 mEq/L (98-107); Glucose 91 mg/dL (70-105); Osmolality,Calculated 274 (280-300); Potassium 3.3 mEq/L (3.5-5.1); Sodium 133 mEq/L (136-145); eGFR For African Americans > 60 (> 60); eGFR For Non-African Americans > 60 (> 60)
[2019-04-22] MEDS: Melatonin 3 MG TABLET PO SCH (20:02)
[2019-04-23] MEDS: Gentamicin 90 MG in 0.9 % Sodium Chloride 100 ML IVPB SCH ×3 (02:59→17:40)
[2019-04-23] MEDS: *HR* OxyCODONE Oral Soln 5 MG/5 ML UD.LIQ PO PRN (04:42)
[2019-04-23 04:57] LABS: Basophils # 0.1 K/mcL (0.0-0.2); Basophils % 0.4 %; Eosinophils # 0.2 K/mcL (0.0-0.6); Eosinophils % 1.6 %; Hemoglobin 7.5 g/dL (12.9-16.9); Immature Granulocytes % 2.1 % (0-4); Lymphocytes # 0.7 K/mcL (0.6-4.6); Lymphocytes % 5.6 %; Mean Corpuscular HGB Conc 31.3 g/dL (31.6-35.5); Mean Corpuscular Hemoglobin 24.9 pg (28.0-33.3); Mean Corpuscular Volume 79.7 fL (83.0-100.0); Mean Platelet Volume 8.9 fL (9.4-12.4); Monocytes # 1.2 K/mcL (0.0-1.3); Monocytes % 9.4 %; Neutrophils # 10.6 K/mcL (1.6-8.9); Platelet Count 379 K/mcL (140-400); Red Blood Count 3.01 M/mcL (4.19-5.50); Segmented Neutrophils % 80.9 %
[2019-04-23 05:12] LABS: BUN/Creatinine Ratio 9 (6-26); Blood Urea Nitrogen 6 mg/dL (8-23); Calcium 7.3 mg/dL (8.6-10.3); Carbon Dioxide 20 mEq/L (23-29); Chloride 105 mEq/L (98-107); Glucose 68 mg/dL (70-105); Osmolality,Calculated 270 (280-300); Potassium 3.9 mEq/L (3.5-5.1); Sodium 132 mEq/L (136-145); eGFR For African Americans > 60 (> 60); eGFR For Non-African Americans > 60 (> 60)
[2019-04-23] MEDS: Insulin LISPRO 300 UNITS/3 ML VIAL SQ SCH ×3 (08:21→16:49)
[2019-04-23] MEDS: Gabapentin 400 MG CAPSULE PO SCH ×3 (08:31→20:58)
[2019-04-23] MEDS: Aspirin Enteric Coated 81 MG Tablet PO SCH (08:31)
[2019-04-23] MEDS: Cholecalciferol (D-3) 1,000 UNIT (25MCG) TABLET PO SCH (08:31)
[2019-04-23] MEDS: Metoprolol XL (24 HR) Succ 25 MG TAB.ER.24H PO SCH (08:32)
[2019-04-23] MEDS: Piperacillin/Tazobactam 3.375 GM in 0.9 % Sodium Chloride Mini Bag 100 ML IVPB SCH ×2 (08:32→14:39)
[2019-04-23] MEDS: Pantoprazole 40 MG VIAL IVP SCH (08:35)
[2019-04-23] MEDS: Ringers Solution, Lactated 1,000 ML IVC SCH (08:53)
[2019-04-23] MEDS: Insulin DETEMIR 100 UNIT/ML X5UNITS SQ SCH (08:54)
[2019-04-23] MEDS: Iron Sucrose Complex 200 MG in 0.9 % Sodium Chloride 100 ML IVPB SCH (08:55)
[2019-04-23] MEDS ORDERED: Lidocaine Viscous Oral Soln 15 ML SOLUTION MM PRN (08:58)
[2019-04-23] MEDS ORDERED: 0.9 % Sodium Chloride 500 ML IVC ONE (08:58)
[2019-04-23] MEDS: *HR* Midazolam HCl 5 MG/5 ML VIAL IVP PRN ×2 (10:10→10:20)
[2019-04-23] MEDS: *HR* FentaNYL (PF) 100 MCG/2 ML VIAL IVP PRN ×2 (10:10→10:20)
[2019-04-23] MEDS: Melatonin 3 MG TABLET PO SCH (20:58)
[2019-04-24] MEDS: Piperacillin/Tazobactam 3.375 GM in 0.9 % Sodium Chloride Mini Bag 100 ML IVPB SCH ×3 (01:32→15:42)
[2019-04-24] MEDS: Gentamicin 90 MG in 0.9 % Sodium Chloride 100 ML IVPB SCH ×3 (01:32→17:39)
[2019-04-24] MEDS ORDERED: *HR* FentaNYL (PF) 100 MCG/2 ML VIAL ONE (07:34)
[2019-04-24] MEDS ORDERED: *HR* Propofol 200 MG/20 ML VIAL IVP ONE (07:34)
[2019-04-24] MEDS ORDERED: Lidocaine -MPF 4% 5 ML AMPUL ONE (07:37)
[2019-04-24] MEDS ORDERED: Lidocaine -MPF 2% 2 ML VIAL ONE (07:38)
[2019-04-24] MEDS ORDERED: Ondansetron 4 MG/2 ML VIAL ONE (07:44)
[2019-04-24] MEDS: Cholecalciferol (D-3) 1,000 UNIT (25MCG) TABLET PO SCH ×2 (09:22→09:44)
[2019-04-24] MEDS: Aspirin Enteric Coated 81 MG Tablet PO SCH ×2 (09:22→09:44)
[2019-04-24] MEDS: Pantoprazole 40 MG VIAL IVP SCH (09:22)
[2019-04-24] MEDS: Metoprolol XL (24 HR) Succ 25 MG TAB.ER.24H PO SCH ×2 (09:22→09:44)
[2019-04-24] MEDS: Gabapentin 400 MG CAPSULE PO SCH ×3 (09:22→20:41)
[2019-04-24] MEDS: Insulin LISPRO 300 UNITS/3 ML VIAL SQ SCH ×3 (09:23→16:06)
[2019-04-24] MEDS: Ringers Solution, Lactated 1,000 ML IVC SCH (09:24)
[2019-04-24 10:38] LABS: Appearance of Body Fluid Hazy (Clear); Volume of Body Fluid 20 mL
[2019-04-24 10:42] LABS: Appearance of Body Fluid Cloudy (Clear); Volume of Body Fluid 16 mL
[2019-04-24] MEDS: Insulin DETEMIR 100 UNIT/ML X5UNITS SQ SCH (10:45)
[2019-04-24] MEDS ORDERED: Furosemide 40 MG/4 ML VIAL IVP ONE (11:18)
[2019-04-24 16:04] LABS: BUN/Creatinine Ratio 6 (6-26); Blood Urea Nitrogen 5 mg/dL (8-23); Calcium 7.7 mg/dL (8.6-10.3); Carbon Dioxide 28 mEq/L (23-29); Chloride 98 mEq/L (98-107); Glucose 90 mg/dL (70-105); Osmolality,Calculated 273 (280-300); Potassium 3.5 mEq/L (3.5-5.1); Sodium 133 mEq/L (136-145); eGFR For African Americans > 60 (> 60); eGFR For Non-African Americans > 60 (> 60)
[2019-04-24] MEDS: Melatonin 3 MG TABLET PO SCH (20:41)
[2019-04-25] MEDS: Piperacillin/Tazobactam 3.375 GM in 0.9 % Sodium Chloride Mini Bag 100 ML IVPB SCH ×3 (00:05→15:35)
[2019-04-25] MEDS: Gentamicin 90 MG in 0.9 % Sodium Chloride 100 ML IVPB SCH ×3 (00:05→17:18)
[2019-04-25 06:41] LABS: Hematocrit 25.1 % (37.5-50.1); Mean Corpuscular HGB Conc 31.9 g/dL (31.6-35.5); Mean Corpuscular Hemoglobin 25.3 pg (28.0-33.3); Mean Corpuscular Volume 79.4 fL (83.0-100.0); Mean Platelet Volume 8.8 fL (9.4-12.4); Platelet Count 437 K/mcL (140-400); Red Blood Count 3.16 M/mcL (4.19-5.50); Red Cell Distribution Width 20.5 % (11.5-14.5); White Blood Count 10.4 K/mcL (4.3-11.1)
[2019-04-25 06:58] LABS: BUN/Creatinine Ratio 6 (6-26); Blood Urea Nitrogen 5 mg/dL (8-23); Calcium 7.7 mg/dL (8.6-10.3); Carbon Dioxide 27 mEq/L (23-29); Chloride 98 mEq/L (98-107); Glucose 89 mg/dL (70-105); Osmolality,Calculated 273 (280-300); Potassium 3.3 mEq/L (3.5-5.1); Sodium 133 mEq/L (136-145); eGFR For African Americans > 60 (> 60); eGFR For Non-African Americans > 60 (> 60)
[2019-04-25] MEDS ORDERED: Potassium Chloride Elixir 20 MEQ/15 ML UDC PO ONE (07:15)
[2019-04-25] MEDS: Insulin LISPRO 300 UNITS/3 ML VIAL SQ SCH ×2 (09:22→16:58)
[2019-04-25] MEDS: Insulin DETEMIR 100 UNIT/ML X5UNITS SQ SCH (09:23)
[2019-04-25] MEDS: Metoprolol XL (24 HR) Succ 25 MG TAB.ER.24H PO SCH (09:29)
[2019-04-25] MEDS: Pantoprazole 40 MG VIAL IVP SCH (09:29)
[2019-04-25] MEDS: Aspirin Enteric Coated 81 MG Tablet PO SCH (09:30)
[2019-04-25] MEDS: Gabapentin 400 MG CAPSULE PO SCH ×3 (09:30→21:17)
[2019-04-25] MEDS: Ondansetron 4 MG/2 ML VIAL IVP PRN (09:30)
[2019-04-25] MEDS: Cholecalciferol (D-3) 1,000 UNIT (25MCG) TABLET PO SCH (09:30)
[2019-04-25] MEDS: Apixaban 5 MG TABLET PO SCH (21:16)
[2019-04-25] MEDS: Melatonin 3 MG TABLET PO SCH (21:17)
[2019-04-25] MEDS: *HR* OxyCODONE Oral Soln 5 MG/5 ML UD.LIQ PO PRN (21:18)
[2019-04-26] MEDS: Piperacillin/Tazobactam 3.375 GM in 0.9 % Sodium Chloride Mini Bag 100 ML IVPB SCH ×4 (00:25→23:54)
[2019-04-26] MEDS: Gentamicin 90 MG in 0.9 % Sodium Chloride 100 ML IVPB SCH ×3 (02:19→18:24)
[2019-04-26] MEDS: Insulin LISPRO 300 UNITS/3 ML VIAL SQ SCH ×3 (07:25→16:05)
[2019-04-26] MEDS: Pantoprazole 40 MG VIAL IVP SCH (07:59)
[2019-04-26] MEDS: Ondansetron 4 MG/2 ML VIAL IVP PRN (07:59)
[2019-04-26] MEDS: Apixaban 5 MG TABLET PO SCH ×2 (08:00→21:11)
[2019-04-26] MEDS: Gabapentin 400 MG CAPSULE PO SCH ×3 (08:00→21:11)
[2019-04-26] MEDS: Cholecalciferol (D-3) 1,000 UNIT (25MCG) TABLET PO SCH (08:00)
[2019-04-26] MEDS: Metoprolol XL (24 HR) Succ 25 MG TAB.ER.24H PO SCH (08:00)
[2019-04-26] MEDS: Aspirin Enteric Coated 81 MG Tablet PO SCH (08:00)
[2019-04-26] MEDS ORDERED: Insulin DETEMIR 100 UNIT/ML X5UNITS SQ SCH (09:00)
[2019-04-26] MEDS ORDERED: Lidocaine -MPF 1% 5 ML AMPUL INFILT ONE (11:09)
[2019-04-26 15:33] LABS: BUN/Creatinine Ratio 6 (6-26); Blood Urea Nitrogen 5 mg/dL (8-23); eGFR For African Americans > 60 (> 60); eGFR For Non-African Americans > 60 (> 60)
[2019-04-26] MEDS: *HR* OxyCODONE Oral Soln 5 MG/5 ML UD.LIQ PO PRN (16:03)
[2019-04-26] MEDS: Melatonin 3 MG TABLET PO SCH (21:11)
[2019-04-27] MEDS: Gentamicin 90 MG in 0.9 % Sodium Chloride 100 ML IVPB SCH ×3 (04:54→17:28)
[2019-04-27 08:18] LABS: Basophils # 0.1 K/mcL (0.0-0.2); Basophils % 0.5 %; Eosinophils # 0.3 K/mcL (0.0-0.6); Eosinophils % 3.7 %; Hematocrit 25.1 % (37.5-50.1); Hemoglobin 8.1 g/dL (12.9-16.9); Immature Granulocytes % 1.8 % (0-4); Lymphocytes # 0.6 K/mcL (0.6-4.6); Lymphocytes % 6.4 %; Mean Corpuscular HGB Conc 32.3 g/dL (31.6-35.5); Mean Corpuscular Hemoglobin 25.2 pg (28.0-33.3); Mean Platelet Volume 8.6 fL (9.4-12.4); Monocytes # 0.9 K/mcL (0.0-1.3); Monocytes % 9.6 %; Neutrophils # 7.3 K/mcL (1.6-8.9); Platelet Count 553 K/mcL (140-400); Red Blood Count 3.22 M/mcL (4.19-5.50); Red Cell Distribution Width 20.7 % (11.5-14.5); White Blood Count 9.3 K/mcL (4.3-11.1)
[2019-04-27] MEDS: Insulin LISPRO 300 UNITS/3 ML VIAL SQ SCH ×3 (08:18→17:11)
[2019-04-27] MEDS: Piperacillin/Tazobactam 3.375 GM in 0.9 % Sodium Chloride Mini Bag 100 ML IVPB SCH ×3 (08:21→23:24)
[2019-04-27] MEDS: Apixaban 5 MG TABLET PO SCH ×2 (08:22→21:27)
[2019-04-27] MEDS: Gabapentin 400 MG CAPSULE PO SCH ×3 (08:22→21:27)
[2019-04-27] MEDS: Metoprolol XL (24 HR) Succ 25 MG TAB.ER.24H PO SCH (08:22)
[2019-04-27] MEDS: Aspirin Enteric Coated 81 MG Tablet PO SCH (08:22)
[2019-04-27] MEDS: Cholecalciferol (D-3) 1,000 UNIT (25MCG) TABLET PO SCH (08:23)
[2019-04-27 08:24] LABS: BUN/Creatinine Ratio 6 (6-26); Blood Urea Nitrogen 5 mg/dL (8-23); Calcium 7.7 mg/dL (8.6-10.3); Carbon Dioxide 27 mEq/L (23-29); Chloride 98 mEq/L (98-107); Glucose 120 mg/dL (70-105); Osmolality,Calculated 274 (280-300); Potassium 3.3 mEq/L (3.5-5.1); Sodium 133 mEq/L (136-145); eGFR For African Americans > 60 (> 60); eGFR For Non-African Americans > 60 (> 60)
[2019-04-27] MEDS: Potassium Chloride Elixir 20 MEQ/15 ML UDC PO SCH (10:09)
[2019-04-27] MEDS: *HR* OxyCODONE Oral Soln 5 MG/5 ML UD.LIQ PO PRN ×2 (15:21→23:25)
[2019-04-27] MEDS ORDERED: Chloraseptic Spray 177 ML BOTTLE MM PRN (18:49)
[2019-04-27] MEDS: Melatonin 3 MG TABLET PO SCH (21:27)
[2019-04-28] MEDS: Gentamicin 90 MG in 0.9 % Sodium Chloride 100 ML IVPB SCH ×3 (02:37→17:26)
[2019-04-28] MEDS: Insulin LISPRO 300 UNITS/3 ML VIAL SQ SCH ×3 (08:54→17:12)
[2019-04-28] MEDS: Cholecalciferol (D-3) 1,000 UNIT (25MCG) TABLET PO SCH (08:57)
[2019-04-28] MEDS: Gabapentin 400 MG CAPSULE PO SCH ×3 (08:57→19:57)
[2019-04-28] MEDS: Aspirin Enteric Coated 81 MG Tablet PO SCH (08:57)
[2019-04-28] MEDS: Apixaban 5 MG TABLET PO SCH ×2 (08:58→19:57)
[2019-04-28] MEDS: Piperacillin/Tazobactam 3.375 GM in 0.9 % Sodium Chloride Mini Bag 100 ML IVPB SCH ×2 (08:58→15:35)
[2019-04-28] MEDS: Metoprolol XL (24 HR) Succ 25 MG TAB.ER.24H PO SCH (08:58)
[2019-04-28] MEDS ORDERED: Potassium Chloride Elixir 20 MEQ/15 ML UDC PO SCH (10:44)
[2019-04-28] MEDS: *HR* OxyCODONE Oral Soln 5 MG/5 ML UD.LIQ PO PRN (10:46)
[2019-04-28] MEDS ORDERED: Potassium Chloride Elixir 20 MEQ/15 ML UDC PO ONE (11:00)
[2019-04-28] MEDS: Melatonin 3 MG TABLET PO SCH (19:57)
[2019-04-29] MEDS: Piperacillin/Tazobactam 3.375 GM in 0.9 % Sodium Chloride Mini Bag 100 ML IVPB SCH ×3 (01:45→16:46)
[2019-04-29] MEDS: Gentamicin 90 MG in 0.9 % Sodium Chloride 100 ML IVPB SCH ×3 (03:22→18:06)
[2019-04-29 06:00] LABS: Basophils # 0.1 K/mcL (0.0-0.2); Eosinophils # 0.3 K/mcL (0.0-0.6); Eosinophils % 3.2 %; Hematocrit 25.1 % (37.5-50.1); Hemoglobin 8.1 g/dL (12.9-16.9); Immature Granulocytes % 1.2 % (0-4); Lymphocytes # 0.6 K/mcL (0.6-4.6); Lymphocytes % 6.7 %; Mean Corpuscular HGB Conc 32.3 g/dL (31.6-35.5); Mean Corpuscular Hemoglobin 25.2 pg (28.0-33.3); Mean Corpuscular Volume 78.2 fL (83.0-100.0); Mean Platelet Volume 8.5 fL (9.4-12.4); Monocytes # 0.9 K/mcL (0.0-1.3); Monocytes % 10.8 %; Neutrophils # 6.3 K/mcL (1.6-8.9); Platelet Count 587 K/mcL (140-400); Red Blood Count 3.21 M/mcL (4.19-5.50); Red Cell Distribution Width 20.3 % (11.5-14.5); Segmented Neutrophils % 77.1 %; White Blood Count 8.2 K/mcL (4.3-11.1)
[2019-04-29 06:19] LABS: BUN/Creatinine Ratio 5 (6-26); Blood Urea Nitrogen 4 mg/dL (8-23); Calcium 7.8 mg/dL (8.6-10.3); Carbon Dioxide 26 mEq/L (23-29); Chloride 100 mEq/L (98-107); Glucose 96 mg/dL (70-105); Magnesium 1.7 mg/dL (1.6-2.6); Osmolality,Calculated 273 (280-300); Potassium 3.1 mEq/L (3.5-5.1); Sodium 133 mEq/L (136-145); eGFR For African Americans > 60 (> 60); eGFR For Non-African Americans > 60 (> 60)
[2019-04-29] MEDS: Insulin LISPRO 300 UNITS/3 ML VIAL SQ SCH ×3 (07:41→16:47)
[2019-04-29] MEDS: Aspirin Enteric Coated 81 MG Tablet PO SCH (08:13)
[2019-04-29] MEDS: Metoprolol XL (24 HR) Succ 25 MG TAB.ER.24H PO SCH (08:13)
[2019-04-29] MEDS: Cholecalciferol (D-3) 1,000 UNIT (25MCG) TABLET PO SCH (08:13)
[2019-04-29] MEDS: Potassium Chloride Elixir 20 MEQ/15 ML UDC PO SCH ×2 (08:14→12:24)
[2019-04-29] MEDS: Gabapentin 400 MG CAPSULE PO SCH ×3 (08:14→19:42)
[2019-04-29] MEDS: lisinopriL 5 MG TABLET PO SCH (08:14)
[2019-04-29] MEDS: Apixaban 5 MG TABLET PO SCH ×2 (08:14→19:42)
[2019-04-29] MEDS: *HR* OxyCODONE Oral Soln 5 MG/5 ML UD.LIQ PO PRN (09:51)
[2019-04-29] MEDS: Melatonin 3 MG TABLET PO SCH (19:41)
[2019-04-30] MEDS: Piperacillin/Tazobactam 3.375 GM in 0.9 % Sodium Chloride Mini Bag 100 ML IVPB SCH ×3 (00:32→16:44)
[2019-04-30] MEDS: Gentamicin 90 MG in 0.9 % Sodium Chloride 100 ML IVPB SCH (04:30)
[2019-04-30] MEDS: Gabapentin 400 MG CAPSULE PO SCH ×3 (09:09→20:16)
[2019-04-30] MEDS: Metoprolol XL (24 HR) Succ 25 MG TAB.ER.24H PO SCH ×2 (09:09→16:45)
[2019-04-30] MEDS: lisinopriL 5 MG TABLET PO SCH (09:09)
[2019-04-30] MEDS: Cholecalciferol (D-3) 1,000 UNIT (25MCG) TABLET PO SCH (09:09)
[2019-04-30] MEDS: Aspirin Enteric Coated 81 MG Tablet PO SCH (09:09)
[2019-04-30] MEDS: Apixaban 5 MG TABLET PO SCH ×2 (09:09→16:45)
[2019-04-30] MEDS: Insulin LISPRO 300 UNITS/3 ML VIAL SQ SCH ×3 (09:11→16:45)
[2019-04-30] MEDS: *HR* OxyCODONE Oral Soln 5 MG/5 ML UD.LIQ PO PRN (14:48)
[2019-04-30] MEDS ORDERED: *HR* Metoprolol 5 MG/5 ML VIAL IVP ONE (17:26)
[2019-04-30] MEDS: Melatonin 3 MG TABLET PO SCH (20:16)
[2019-05-01] MEDS: Piperacillin/Tazobactam 3.375 GM in 0.9 % Sodium Chloride Mini Bag 100 ML IVPB SCH ×2 (00:33→09:18)
[2019-05-01 06:02] LABS: Hematocrit 27.6 % (37.5-50.1); Hemoglobin 8.8 g/dL (12.9-16.9); Mean Corpuscular HGB Conc 31.9 g/dL (31.6-35.5); Mean Corpuscular Volume 78.4 fL (83.0-100.0); Mean Platelet Volume 8.4 fL (9.4-12.4); Platelet Count 656 K/mcL (140-400); Red Blood Count 3.52 M/mcL (4.19-5.50); Red Cell Distribution Width 20.2 % (11.5-14.5); White Blood Count 8.9 K/mcL (4.3-11.1)
[2019-05-01 06:20] LABS: BUN/Creatinine Ratio 7 (6-26); Blood Urea Nitrogen 7 mg/dL (8-23); Carbon Dioxide 21 mEq/L (23-29); Chloride 99 mEq/L (98-107); Glucose 86 mg/dL (70-105); Magnesium 1.9 mg/dL (1.6-2.6); Osmolality,Calculated 273 (280-300); Potassium 3.4 mEq/L (3.5-5.1); Sodium 133 mEq/L (136-145); eGFR For African Americans > 60 (> 60); eGFR For Non-African Americans > 60 (> 60)
[2019-05-01] MEDS: Gentamicin 90 MG in 0.9 % Sodium Chloride 100 ML IVPB SCH (07:48)
[2019-05-01] MEDS: Potassium Chloride Elixir 20 MEQ/15 ML UDC PO SCH (07:49)
[2019-05-01] MEDS: Insulin LISPRO 300 UNITS/3 ML VIAL SQ SCH ×3 (09:18→16:33)
[2019-05-01] MEDS: Apixaban 5 MG TABLET PO SCH ×2 (09:42→21:00)
[2019-05-01] MEDS: Aspirin Enteric Coated 81 MG Tablet PO SCH (09:42)
[2019-05-01] MEDS: Metoprolol XL (24 HR) Succ 25 MG TAB.ER.24H PO SCH (09:42)
[2019-05-01] MEDS: Gabapentin 400 MG CAPSULE PO SCH ×3 (09:42→21:00)
[2019-05-01] MEDS: Cholecalciferol (D-3) 1,000 UNIT (25MCG) TABLET PO SCH (09:42)
[2019-05-01] MEDS: lisinopriL 5 MG TABLET PO SCH (09:45)
[2019-05-01] MEDS: Melatonin 3 MG TABLET PO SCH (21:00)
[2019-05-02] MEDS: Insulin LISPRO 300 UNITS/3 ML VIAL SQ SCH ×3 (07:29→17:53)
[2019-05-02] MEDS: Cholecalciferol (D-3) 1,000 UNIT (25MCG) TABLET PO SCH (08:57)
[2019-05-02] MEDS: Apixaban 5 MG TABLET PO SCH ×2 (08:58→18:06)
[2019-05-02] MEDS: lisinopriL 5 MG TABLET PO SCH (08:58)
[2019-05-02] MEDS: Gabapentin 400 MG CAPSULE PO SCH ×3 (08:58→18:06)
[2019-05-02] MEDS: Metoprolol XL (24 HR) Succ 25 MG TAB.ER.24H PO SCH (08:58)
[2019-05-02] MEDS: Aspirin Enteric Coated 81 MG Tablet PO SCH (08:58)
[2019-05-02] MEDS: Melatonin 3 MG TABLET PO SCH (18:06)
[2019-05-03] MEDS: *HR* OxyCODONE Oral Soln 5 MG/5 ML UD.LIQ PO PRN (05:54)
[2019-05-03] MEDS: Insulin LISPRO 300 UNITS/3 ML VIAL SQ SCH ×3 (09:52→18:02)
[2019-05-03] MEDS: Aspirin Enteric Coated 81 MG Tablet PO SCH (10:09)
[2019-05-03] MEDS: Cholecalciferol (D-3) 1,000 UNIT (25MCG) TABLET PO SCH (10:09)
[2019-05-03] MEDS: Apixaban 5 MG TABLET PO SCH ×2 (10:09→20:19)
[2019-05-03] MEDS: Metoprolol XL (24 HR) Succ 25 MG TAB.ER.24H PO SCH (10:09)
[2019-05-03] MEDS: Gabapentin 400 MG CAPSULE PO SCH ×3 (10:09→20:18)
[2019-05-03] MEDS: lisinopriL 5 MG TABLET PO SCH (10:10)
[2019-05-03] MEDS: Magic Mouthwash 10 ML UD Cup PO SCH (16:31)
[2019-05-03 19:16] LABS: BUN/Creatinine Ratio 7 (6-26); Blood Urea Nitrogen 10 mg/dL (8-23); eGFR For African Americans 60 (> 60); eGFR For Non-African Americans 49 (> 60)
[2019-05-03] MEDS: Melatonin 3 MG TABLET PO SCH (20:19)
[2019-05-04 04:35] LABS: Basophils % 0.4 %; Eosinophils # 0.3 K/mcL (0.0-0.6); Eosinophils % 4.2 %; Hematocrit 27.1 % (37.5-50.1); Hemoglobin 8.3 g/dL (12.9-16.9); Immature Granulocytes % 1.6 % (0-4); Lymphocytes # 0.6 K/mcL (0.6-4.6); Lymphocytes % 8.6 %; Mean Corpuscular HGB Conc 30.6 g/dL (31.6-35.5); Mean Corpuscular Hemoglobin 24.9 pg (28.0-33.3); Mean Corpuscular Volume 81.1 fL (83.0-100.0); Mean Platelet Volume 8.5 fL (9.4-12.4); Monocytes # 0.7 K/mcL (0.0-1.3); Monocytes % 10.4 %; Platelet Count 578 K/mcL (140-400); Red Blood Count 3.34 M/mcL (4.19-5.50); Red Cell Distribution Width 20.2 % (11.5-14.5); Segmented Neutrophils % 74.8 %; White Blood Count 6.7 K/mcL (4.3-11.1)
[2019-05-04 06:02] LABS: Calcium 7.8 mg/dL (8.6-10.3)
[2019-05-04] MEDS: Magic Mouthwash 10 ML UD Cup PO SCH ×3 (08:44→16:05)
[2019-05-04] MEDS: Insulin LISPRO 300 UNITS/3 ML VIAL SQ SCH ×3 (08:44→16:05)
[2019-05-04] MEDS: lisinopriL 5 MG TABLET PO SCH (08:45)
[2019-05-04] MEDS: Metoprolol XL (24 HR) Succ 25 MG TAB.ER.24H PO SCH (08:45)
[2019-05-04] MEDS: Apixaban 5 MG TABLET PO SCH ×2 (08:45→20:47)
[2019-05-04] MEDS: Aspirin Enteric Coated 81 MG Tablet PO SCH (08:45)
[2019-05-04] MEDS: Cholecalciferol (D-3) 1,000 UNIT (25MCG) TABLET PO SCH (08:45)
[2019-05-04] MEDS: Gabapentin 400 MG CAPSULE PO SCH ×3 (08:45→20:47)
[2019-05-04 10:39] LABS: Sodium, Urine 69.3 mEq/L
[2019-05-04] MEDS: 0.9 % Sodium Chloride w KCl 40 MEQ/1,000 ML MLS IVC SCH (13:16)
[2019-05-04 20:02] LABS: Adenovirus F 40/41 PCR Not detected (Not detect); Astrovirus PCR Not detected (Not detect); C.difficile Toxin A/B Gene PCR Not detected (Not detect); Campylobacter by PCR Not detected (Not detect); Cryptosporidium by PCR Not detected (Not detect); Cyclospora cayetanensis PCR Not detected (Not detect); E. coli O157 by PCR Not detected (Not detect); Entamoeba histolytica PCR Not detected (Not detect); Enteroaggregative E.coli(EAEC) Not detected (Not detect); Enteropathogenic E.coli(EPEC) Not detected (Not detect); Enterotoxigenic E.coli (ETEC) Not detected (Not detect); Giardia lamblia PCR Not detected (Not detect); Norovirus GI/GII PCR Not detected (Not detect); Plesiomonas shigelloides PCR Not detected (Not detect); Rotavirus A PCR Not detected (Not detect); Salmonella PCR Not detected (Not detect); Sapovirus PCR Not detected (Not detect); Shig/EnteroinvasiveE coli EIEC Not detected (Not detect); Shigalike tox-prod E coli STEC Not detected (Not detect); Vibrio PCR Not detected (Not detect); Vibrio cholerae PCR Not detected (Not detect); Yersinia enterocolitica PCR Not detected (Not detect)
[2019-05-04] MEDS: Melatonin 3 MG TABLET PO SCH (20:47)
[2019-05-05] MEDS: 0.9 % Sodium Chloride w KCl 40 MEQ/1,000 ML MLS IVC SCH ×2 (00:14→11:26)
[2019-05-05 05:07] LABS: Calcium 7.5 mg/dL (8.6-10.3); Potassium 3.9 mEq/L (3.5-5.1)
[2019-05-05] MEDS: Gabapentin 400 MG CAPSULE PO SCH ×3 (08:24→20:36)
[2019-05-05] MEDS: lisinopriL 5 MG TABLET PO SCH (08:24)
[2019-05-05] MEDS: Magic Mouthwash 10 ML UD Cup PO SCH ×3 (08:24→17:20)
[2019-05-05] MEDS: Insulin LISPRO 300 UNITS/3 ML VIAL SQ SCH ×3 (08:25→17:20)
[2019-05-05] MEDS: Cholecalciferol (D-3) 1,000 UNIT (25MCG) TABLET PO SCH (08:25)
[2019-05-05] MEDS: Aspirin Enteric Coated 81 MG Tablet PO SCH (08:25)
[2019-05-05] MEDS: Metoprolol XL (24 HR) Succ 25 MG TAB.ER.24H PO SCH (08:25)
[2019-05-05] MEDS: Apixaban 5 MG TABLET PO SCH ×2 (08:25→20:36)
[2019-05-05] MEDS ORDERED: Aminoglycoside Consult 1 EACH MC ONE (08:43)
[2019-05-05] MEDS: 0.9 % Sodium Chloride 1,000 ML IVC SCH (11:11)
[2019-05-05] MEDS: DAPTOmycin 480 MG in 0.9 % Sodium Chloride 100 ML IVPB SCH (11:12)
[2019-05-05] MEDS: Melatonin 3 MG TABLET PO SCH (20:36)
[2019-05-06] MEDS: 0.9 % Sodium Chloride 1,000 ML IVC SCH ×3 (05:31→15:45)
[2019-05-06 05:58] LABS: Basophils # 0.1 K/mcL (0.0-0.2); Basophils % 0.8 %; Eosinophils # 0.2 K/mcL (0.0-0.6); Eosinophils % 3.1 %; Hemoglobin 8.1 g/dL (12.9-16.9); Immature Granulocytes % 1.4 % (0-4); Lymphocytes # 0.6 K/mcL (0.6-4.6); Lymphocytes % 9.1 %; Mean Corpuscular Hemoglobin 24.7 pg (28.0-33.3); Mean Corpuscular Volume 82.3 fL (83.0-100.0); Mean Platelet Volume 8.6 fL (9.4-12.4); Monocytes # 0.6 K/mcL (0.0-1.3); Monocytes % 9.4 %; Neutrophils # 4.9 K/mcL (1.6-8.9); Platelet Count 495 K/mcL (140-400); Red Blood Count 3.28 M/mcL (4.19-5.50); Red Cell Distribution Width 20.2 % (11.5-14.5); Segmented Neutrophils % 76.2 %; White Blood Count 6.5 K/mcL (4.3-11.1)
[2019-05-06 06:27] LABS: Calcium 7.6 mg/dL (8.6-10.3); Potassium 3.7 mEq/L (3.5-5.1)
[2019-05-06] MEDS: Magic Mouthwash 10 ML UD Cup PO SCH ×3 (09:17→15:44)
[2019-05-06] MEDS: Apixaban 5 MG TABLET PO SCH ×2 (09:17→20:31)
[2019-05-06] MEDS: Aspirin Enteric Coated 81 MG Tablet PO SCH (09:17)
[2019-05-06] MEDS: Gabapentin 400 MG CAPSULE PO SCH ×3 (09:17→20:31)
[2019-05-06] MEDS: Metoprolol XL (24 HR) Succ 25 MG TAB.ER.24H PO SCH (09:17)
[2019-05-06] MEDS: DAPTOmycin 480 MG in 0.9 % Sodium Chloride 100 ML IVPB SCH (09:17)
[2019-05-06] MEDS: Cholecalciferol (D-3) 1,000 UNIT (25MCG) TABLET PO SCH (09:17)
[2019-05-06] MEDS: lisinopriL 5 MG TABLET PO SCH (09:17)
[2019-05-06] MEDS: Insulin LISPRO 300 UNITS/3 ML VIAL SQ SCH ×3 (09:18→16:49)
[2019-05-06] MEDS: Melatonin 3 MG TABLET PO SCH (20:31)
[2019-05-07] MEDS: 0.9 % Sodium Chloride 1,000 ML IVC SCH ×2 (05:10→16:14)
[2019-05-07 06:31] LABS: Calcium 7.6 mg/dL (8.6-10.3); Potassium 3.4 mEq/L (3.5-5.1)
[2019-05-07] MEDS: Magic Mouthwash 10 ML UD Cup PO SCH ×3 (08:58→16:14)
[2019-05-07] MEDS: lisinopriL 5 MG TABLET PO SCH (08:58)
[2019-05-07] MEDS: Metoprolol XL (24 HR) Succ 25 MG TAB.ER.24H PO SCH (08:58)
[2019-05-07] MEDS: Aspirin Enteric Coated 81 MG Tablet PO SCH (08:58)
[2019-05-07] MEDS: Cholecalciferol (D-3) 1,000 UNIT (25MCG) TABLET PO SCH (08:58)
[2019-05-07] MEDS: Gabapentin 400 MG CAPSULE PO SCH ×3 (08:58→21:12)
[2019-05-07] MEDS: Apixaban 5 MG TABLET PO SCH ×2 (08:58→21:12)
[2019-05-07] MEDS: Insulin LISPRO 300 UNITS/3 ML VIAL SQ SCH ×3 (08:59→17:06)
[2019-05-07] MEDS: DAPTOmycin 480 MG in 0.9 % Sodium Chloride 100 ML IVPB SCH (08:59)
[2019-05-07 12:41] LABS: Bilirubin,Urine Negative (Negative); Blood,Urine Large (Negative); Clarity,Urine Cloudy (Clear); Color,Urine Yellow (Yellow); Glucose,Urine (UA) Normal (Normal); Ketones,Urine Trace mg/dL (Negative); Leukocyte Esterase,Urine Moderate (Negative); Nitrite,Urine Negative (Negative); Protein,Urine 30 mg/dL (Neg-Trace); Specific Gravity,Urine 1.009 (1.010-1.025); Urobilinogen,Urine Normal (Normal)
[2019-05-07 12:42] LABS: Bacteria,Urine None Seen per hpf (None-Few); Squamous Epithelial Cell,Urine Many per lpf (None-Few); WBC,Urine 30-50 per hpf (0-3)
[2019-05-07 12:56] LABS: Yeast,Urine Moderate per hpf (None Seen)
[2019-05-07] MEDS: Melatonin 3 MG TABLET PO SCH (21:12)
[2019-05-08] MEDS: 0.9 % Sodium Chloride 1,000 ML IVC SCH ×3 (02:17→22:27)
[2019-05-08 05:51] LABS: Basophils % 0.5 %; Eosinophils % 0.3 %; Hematocrit 28.1 % (37.5-50.1); Hemoglobin 8.5 g/dL (12.9-16.9); Immature Granulocytes % 1.2 % (0-4); Lymphocytes # 0.4 K/mcL (0.6-4.6); Lymphocytes % 5.3 %; Mean Corpuscular HGB Conc 30.2 g/dL (31.6-35.5); Mean Corpuscular Hemoglobin 24.7 pg (28.0-33.3); Mean Corpuscular Volume 81.7 fL (83.0-100.0); Mean Platelet Volume 8.9 fL (9.4-12.4); Monocytes # 0.7 K/mcL (0.0-1.3); Monocytes % 8.6 %; Neutrophils # 6.5 K/mcL (1.6-8.9); Platelet Count 472 K/mcL (140-400); Red Blood Count 3.44 M/mcL (4.19-5.50); Red Cell Distribution Width 20.1 % (11.5-14.5); Segmented Neutrophils % 84.1 %; White Blood Count 7.7 K/mcL (4.3-11.1)
[2019-05-08 06:01] LABS: Calcium 7.6 mg/dL (8.6-10.3); Potassium 3.1 mEq/L (3.5-5.1)
[2019-05-08] MEDS: Cholecalciferol (D-3) 1,000 UNIT (25MCG) TABLET PO SCH (08:33)
[2019-05-08] MEDS: Aspirin Enteric Coated 81 MG Tablet PO SCH (08:33)
[2019-05-08] MEDS: Metoprolol XL (24 HR) Succ 25 MG TAB.ER.24H PO SCH (08:33)
[2019-05-08] MEDS: Magic Mouthwash 10 ML UD Cup PO SCH ×3 (08:33→16:55)
[2019-05-08] MEDS: Gabapentin 400 MG CAPSULE PO SCH ×3 (08:33→21:47)
[2019-05-08] MEDS: Apixaban 5 MG TABLET PO SCH ×2 (08:33→21:46)
[2019-05-08] MEDS: Insulin LISPRO 300 UNITS/3 ML VIAL SQ SCH ×3 (08:34→16:58)
[2019-05-08] MEDS: DAPTOmycin 480 MG in 0.9 % Sodium Chloride 100 ML IVPB SCH (08:51)
[2019-05-08] MEDS: Melatonin 3 MG TABLET PO SCH (21:46)
[2019-05-09] MEDS: 0.9 % Sodium Chloride 1,000 ML IVC SCH ×3 (04:33→18:52)
[2019-05-09 05:38] LABS: Calcium 7.4 mg/dL (8.6-10.3); Potassium 3.5 mEq/L (3.5-5.1)
[2019-05-09] MEDS: Insulin LISPRO 300 UNITS/3 ML VIAL SQ SCH ×3 (08:19→17:36)
[2019-05-09] MEDS: Metoprolol XL (24 HR) Succ 25 MG TAB.ER.24H PO SCH (08:35)
[2019-05-09] MEDS: Gabapentin 400 MG CAPSULE PO SCH ×3 (08:35→20:04)
[2019-05-09] MEDS: Aspirin Enteric Coated 81 MG Tablet PO SCH (08:35)
[2019-05-09] MEDS: Cholecalciferol (D-3) 1,000 UNIT (25MCG) TABLET PO SCH (08:35)
[2019-05-09] MEDS: Magic Mouthwash 10 ML UD Cup PO SCH ×3 (08:35→17:45)
[2019-05-09] MEDS: Apixaban 5 MG TABLET PO SCH ×2 (08:35→20:04)
[2019-05-09] MEDS: DAPTOmycin 480 MG in 0.9 % Sodium Chloride 100 ML IVPB SCH (08:46)
[2019-05-09] MEDS ORDERED: Metoprolol XL (24 HR) Succ 25 MG TAB.ER.24H PO ONE (11:29)
[2019-05-09] MEDS: Melatonin 3 MG TABLET PO SCH (20:04)
[2019-05-09] MEDS: Nystatin POWDER 30 GM BOTTLE TP SCH (20:05)
[2019-05-10] MEDS: 0.9 % Sodium Chloride 1,000 ML IVC SCH ×2 (04:24→15:22)
[2019-05-10 05:06] LABS: Basophils % 0.6 %; Eosinophils # 0.3 K/mcL (0.0-0.6); Eosinophils % 4.3 %; Hematocrit 26.2 % (37.5-50.1); Hemoglobin 8.1 g/dL (12.9-16.9); Immature Granulocytes % 1.2 % (0-4); Lymphocytes # 0.5 K/mcL (0.6-4.6); Lymphocytes % 7.8 %; Mean Corpuscular HGB Conc 30.9 g/dL (31.6-35.5); Mean Corpuscular Hemoglobin 24.8 pg (28.0-33.3); Mean Corpuscular Volume 80.4 fL (83.0-100.0); Mean Platelet Volume 8.6 fL (9.4-12.4); Monocytes # 0.7 K/mcL (0.0-1.3); Neutrophils # 5.1 K/mcL (1.6-8.9); Platelet Count 390 K/mcL (140-400); Red Blood Count 3.26 M/mcL (4.19-5.50); Red Cell Distribution Width 20.1 % (11.5-14.5); Segmented Neutrophils % 76.1 %; White Blood Count 6.7 K/mcL (4.3-11.1)
[2019-05-10 05:21] LABS: Calcium 7.6 mg/dL (8.6-10.3); Potassium 3.1 mEq/L (3.5-5.1)
[2019-05-10] MEDS: Insulin LISPRO 300 UNITS/3 ML VIAL SQ SCH ×3 (08:05→17:35)
[2019-05-10] MEDS: Nystatin POWDER 30 GM BOTTLE TP SCH ×2 (09:00→20:12)
[2019-05-10] MEDS: DAPTOmycin 480 MG in 0.9 % Sodium Chloride 100 ML IVPB SCH (09:50)
[2019-05-10] MEDS: Gabapentin 400 MG CAPSULE PO SCH ×3 (09:51→20:11)
[2019-05-10] MEDS: Cholecalciferol (D-3) 1,000 UNIT (25MCG) TABLET PO SCH (09:52)
[2019-05-10] MEDS: Metoprolol XL (24 HR) Succ 50 MG TAB.ER.24H PO SCH (09:52)
[2019-05-10] MEDS: Magic Mouthwash 10 ML UD Cup PO SCH ×3 (09:52→17:42)
[2019-05-10] MEDS: Apixaban 5 MG TABLET PO SCH ×2 (09:52→20:11)
[2019-05-10] MEDS: Aspirin Enteric Coated 81 MG Tablet PO SCH (09:52)
[2019-05-10] MEDS: *HR* Promethazine 25 MG/ML VIAL IVP PRN (10:10)
[2019-05-10] MEDS: Acetaminophen 325 MG TABLET PO PRN (10:10)
[2019-05-10] MEDS: Melatonin 3 MG TABLET PO SCH (20:11)
[2019-05-11] MEDS: 0.9 % Sodium Chloride 1,000 ML IVC SCH ×2 (01:14→15:48)
[2019-05-11 01:21] LABS: Hematocrit 26.6 % (37.5-50.1); Hemoglobin 8.1 g/dL (12.9-16.9)
[2019-05-11 01:36] LABS: Calcium 7.6 mg/dL (8.6-10.3)
[2019-05-11] MEDS: Insulin LISPRO 300 UNITS/3 ML VIAL SQ SCH ×3 (07:43→17:15)
[2019-05-11] MEDS: Apixaban 5 MG TABLET PO SCH ×2 (08:27→20:15)
[2019-05-11] MEDS: Gabapentin 400 MG CAPSULE PO SCH ×3 (08:27→20:16)
[2019-05-11] MEDS: Metoprolol XL (24 HR) Succ 50 MG TAB.ER.24H PO SCH (08:27)
[2019-05-11] MEDS: Aspirin Enteric Coated 81 MG Tablet PO SCH (08:27)
[2019-05-11] MEDS: Cholecalciferol (D-3) 1,000 UNIT (25MCG) TABLET PO SCH (08:27)
[2019-05-11] MEDS: Magic Mouthwash 10 ML UD Cup PO SCH ×4 (08:28→17:35)
[2019-05-11] MEDS: DAPTOmycin 480 MG in 0.9 % Sodium Chloride 100 ML IVPB SCH (08:28)
[2019-05-11] MEDS: Nystatin POWDER 30 GM BOTTLE TP SCH ×2 (08:29→20:16)
[2019-05-11] MEDS: Ondansetron 4 MG/2 ML VIAL IVP PRN (08:52)
[2019-05-11] MEDS: Potassium Chloride Elixir 20 MEQ/15 ML UDC PO SCH ×2 (12:01→20:16)
[2019-05-11] MEDS: Melatonin 3 MG TABLET PO SCH (20:16)
[2019-05-12] MEDS: 0.9 % Sodium Chloride 1,000 ML IVC SCH ×2 (03:31→14:46)
[2019-05-12 04:05] LABS: Calcium 7.5 mg/dL (8.6-10.3); Potassium 3.8 mEq/L (3.5-5.1)
[2019-05-12] MEDS: Insulin LISPRO 300 UNITS/3 ML VIAL SQ SCH ×3 (08:57→17:25)
[2019-05-12] MEDS: Magic Mouthwash 10 ML UD Cup PO SCH ×3 (09:03→17:25)
[2019-05-12] MEDS: Nystatin POWDER 30 GM BOTTLE TP SCH ×2 (09:04→19:45)
[2019-05-12] MEDS: Apixaban 5 MG TABLET PO SCH ×2 (09:04→19:43)
[2019-05-12] MEDS: Aspirin Enteric Coated 81 MG Tablet PO SCH (09:04)
[2019-05-12] MEDS: Gabapentin 400 MG CAPSULE PO SCH ×4 (09:04→19:43)
[2019-05-12] MEDS: Metoprolol XL (24 HR) Succ 50 MG TAB.ER.24H PO SCH (09:04)
[2019-05-12] MEDS: Potassium Chloride Elixir 20 MEQ/15 ML UDC PO SCH ×2 (09:04→19:44)
[2019-05-12] MEDS: Cholecalciferol (D-3) 1,000 UNIT (25MCG) TABLET PO SCH (09:04)
[2019-05-12] MEDS: DAPTOmycin 480 MG in 0.9 % Sodium Chloride 100 ML IVPB SCH (10:59)
[2019-05-12] MEDS: Melatonin 3 MG TABLET PO SCH (19:43)
[2019-05-13] MEDS: 0.9 % Sodium Chloride 1,000 ML IVC SCH ×3 (01:00→21:45)
[2019-05-13] MEDS: Acetaminophen 325 MG TABLET PO PRN ×2 (01:24→07:44)
[2019-05-13 01:41] LABS: Hematocrit 26.7 % (37.5-50.1); Hemoglobin 8.3 g/dL (12.9-16.9)
[2019-05-13 02:00] LABS: Calcium 7.6 mg/dL (8.6-10.3); Potassium 3.8 mEq/L (3.5-5.1)
[2019-05-13] MEDS: Magic Mouthwash 10 ML UD Cup PO SCH ×3 (07:45→16:42)
[2019-05-13] MEDS: Metoprolol XL (24 HR) Succ 50 MG TAB.ER.24H PO SCH (07:45)
[2019-05-13] MEDS: Gabapentin 400 MG CAPSULE PO SCH ×3 (07:45→20:58)
[2019-05-13] MEDS: Cholecalciferol (D-3) 1,000 UNIT (25MCG) TABLET PO SCH (07:45)
[2019-05-13] MEDS: Aspirin Enteric Coated 81 MG Tablet PO SCH (07:45)
[2019-05-13] MEDS: Apixaban 5 MG TABLET PO SCH ×2 (07:45→20:57)
[2019-05-13] MEDS: Insulin LISPRO 300 UNITS/3 ML VIAL SQ SCH ×3 (07:46→16:23)
[2019-05-13] MEDS: *HR* Promethazine 25 MG/ML VIAL IVP PRN (07:50)
[2019-05-13] MEDS: Nystatin POWDER 30 GM BOTTLE TP SCH ×2 (07:59→20:58)
[2019-05-13] MEDS: Potassium Chloride Elixir 20 MEQ/15 ML UDC PO SCH ×2 (08:00→20:59)
[2019-05-13] MEDS: DAPTOmycin 480 MG in 0.9 % Sodium Chloride 100 ML IVPB SCH (10:36)
[2019-05-13] MEDS: Melatonin 3 MG TABLET PO SCH (20:58)
[2019-05-14 00:57] LABS: Basophils # 0.1 K/mcL (0.0-0.2); Basophils % 0.5 %; Eosinophils # 0.3 K/mcL (0.0-0.6); Eosinophils % 3.5 %; Hemoglobin 8.6 g/dL (12.9-16.9); Immature Granulocytes % 0.8 % (0-4); Lymphocytes # 0.6 K/mcL (0.6-4.6); Lymphocytes % 6.9 %; Mean Corpuscular HGB Conc 29.7 g/dL (31.6-35.5); Mean Corpuscular Hemoglobin 24.4 pg (28.0-33.3); Mean Corpuscular Volume 82.4 fL (83.0-100.0); Mean Platelet Volume 8.9 fL (9.4-12.4); Monocytes # 0.8 K/mcL (0.0-1.3); Monocytes % 8.7 %; Neutrophils # 7.3 K/mcL (1.6-8.9); Platelet Count 408 K/mcL (140-400); Red Blood Count 3.52 M/mcL (4.19-5.50); Red Cell Distribution Width 20.6 % (11.5-14.5); Segmented Neutrophils % 79.6 %; White Blood Count 9.2 K/mcL (4.3-11.1)
[2019-05-14 01:10] LABS: Calcium 7.6 mg/dL (8.6-10.3); Potassium 3.2 mEq/L (3.5-5.1)
[2019-05-14] MEDS: *HR* Promethazine 25 MG/ML VIAL IVP PRN (06:05)
[2019-05-14] MEDS ORDERED: Potassium Chloride Elixir 20 MEQ/15 ML UDC PO ONE (07:29)
[2019-05-14] MEDS ORDERED: *HR* Metoprolol 5 MG/5 ML VIAL IVP ONE (07:40)
[2019-05-14] MEDS: Potassium Chloride Elixir 20 MEQ/15 ML UDC PO SCH ×2 (08:13→19:53)
[2019-05-14] MEDS: Insulin LISPRO 300 UNITS/3 ML VIAL SQ SCH ×3 (08:14→16:09)
[2019-05-14] MEDS: Gabapentin 400 MG CAPSULE PO SCH ×3 (08:24→19:55)
[2019-05-14] MEDS: Apixaban 5 MG TABLET PO SCH ×2 (08:24→19:55)
[2019-05-14] MEDS: Metoprolol XL (24 HR) Succ 50 MG TAB.ER.24H PO SCH (08:25)
[2019-05-14] MEDS: Nystatin POWDER 30 GM BOTTLE TP SCH ×2 (08:28→19:55)
[2019-05-14] MEDS: Cholecalciferol (D-3) 1,000 UNIT (25MCG) TABLET PO SCH (08:28)
[2019-05-14] MEDS: 0.9 % Sodium Chloride 1,000 ML IVC SCH ×2 (08:28→19:53)
[2019-05-14] MEDS: Aspirin Enteric Coated 81 MG Tablet PO SCH (08:28)
[2019-05-14] MEDS: Magic Mouthwash 10 ML UD Cup PO SCH ×3 (08:29→16:09)
[2019-05-14] MEDS ORDERED: Morphine Sulfate 2 MG/ML SYRINGE IVP PRN (09:55)
[2019-05-14] MEDS: Ondansetron 4 MG/2 ML VIAL IVP PRN (10:18)
[2019-05-14] MEDS: DAPTOmycin 480 MG in 0.9 % Sodium Chloride 100 ML IVPB SCH (10:18)
[2019-05-14] MEDS: Pantoprazole 40 MG VIAL IVP SCH ×2 (10:18→17:30)
[2019-05-14] MEDS: Lactobacillus 1 EACH CAP.SPRINK PO SCH (12:02)
[2019-05-14] MEDS: Melatonin 3 MG TABLET PO SCH (19:53)
[2019-05-15 03:14] LABS: Basophils % 0.7 %; Eosinophils # 0.2 K/mcL (0.0-0.6); Eosinophils % 3.6 %; Hematocrit 26.2 % (37.5-50.1); Hemoglobin 7.9 g/dL (12.9-16.9); Immature Granulocytes % 0.7 % (0-4); Lymphocytes # 0.7 K/mcL (0.6-4.6); Lymphocytes % 10.8 %; Mean Corpuscular HGB Conc 30.2 g/dL (31.6-35.5); Mean Corpuscular Volume 82.9 fL (83.0-100.0); Mean Platelet Volume 8.8 fL (9.4-12.4); Monocytes # 0.6 K/mcL (0.0-1.3); Monocytes % 10.5 %; Neutrophils # 4.5 K/mcL (1.6-8.9); Platelet Count 319 K/mcL (140-400); Red Blood Count 3.16 M/mcL (4.19-5.50); Red Cell Distribution Width 20.6 % (11.5-14.5); Segmented Neutrophils % 73.7 %; White Blood Count 6.1 K/mcL (4.3-11.1)
[2019-05-15 03:48] LABS: Calcium 7.4 mg/dL (8.6-10.3); Potassium 3.4 mEq/L (3.5-5.1)
[2019-05-15] MEDS: 0.9 % Sodium Chloride 1,000 ML IVC SCH (05:55)
[2019-05-15] MEDS: Pantoprazole 40 MG VIAL IVP SCH (05:55)
[2019-05-15] MEDS: Cholecalciferol (D-3) 1,000 UNIT (25MCG) TABLET PO SCH (09:18)
[2019-05-15] MEDS: Aspirin Enteric Coated 81 MG Tablet PO SCH (09:18)
[2019-05-15] MEDS: Gabapentin 400 MG CAPSULE PO SCH ×2 (09:18→15:29)
[2019-05-15] MEDS: Lactobacillus 1 EACH CAP.SPRINK PO SCH (09:19)
[2019-05-15] MEDS: Magic Mouthwash 10 ML UD Cup PO SCH ×3 (09:19→16:21)
[2019-05-15] MEDS: Metoprolol XL (24 HR) Succ 50 MG TAB.ER.24H PO SCH (09:19)
[2019-05-15] MEDS: Apixaban 5 MG TABLET PO SCH (09:19)
[2019-05-15] MEDS: DAPTOmycin 480 MG in 0.9 % Sodium Chloride 100 ML IVPB SCH (09:19)
[2019-05-15] MEDS: Potassium Chloride Elixir 20 MEQ/15 ML UDC PO SCH (09:19)
[2019-05-15] MEDS: Insulin LISPRO 300 UNITS/3 ML VIAL SQ SCH ×3 (09:20→16:21)
[2019-05-15] MEDS: Nystatin POWDER 30 GM BOTTLE TP SCH (09:20)
[2019-05-15 16:10] VITALS: BP 171/68
[2019-05-16] MEDS ORDERED: Metoprolol XL (24 HR) Succ 50 MG TAB.ER.24H PO SCH (09:00)
== END 2019-05-15 17:35 | DRG 853 ==
LOC: SUATTDRO 14:16 → 2ANU 14:16 → 2NNU 04-17 12:11 → 3BNU 04-30 23:55 → 2ANU 05-14 13:15
PROVIDERS: ADMIT Pharmacist; ATTEND Family Medicine
PROC: ENDOBRF (2019-04-24 07:45)

== ENCOUNTER 2019-06-05 14:17 | Observation (INO) ==
[2019-06-05] MEDS ORDERED: Naloxone 0.4 MG/ML INJ IVP PRN (20:22)
[2019-06-05] MEDS ORDERED: *HR* Dextrose 50 % in Water (Syg) 50 ML SYRINGE IVP PRN (20:24)
[2019-06-05] MEDS ORDERED: Dextrose Gel 15 GM/37.5 ML TUBE PO PRN ×2 (20:24)
[2019-06-05] MEDS ORDERED: D5% in Water 1,000 ML IVC PRN (20:24)
[2019-06-06 05:11] LABS: Basophils % 0.3 %; Eosinophils # 0.2 K/mcL (0.0-0.6); Eosinophils % 3.2 %; Hematocrit 29.6 % (37.5-50.1); Hemoglobin 9.3 g/dL (12.9-16.9); Immature Granulocytes % 0.3 % (0-4); Lymphocytes # 0.6 K/mcL (0.6-4.6); Lymphocytes % 9.7 %; Mean Corpuscular HGB Conc 31.4 g/dL (31.6-35.5); Mean Corpuscular Hemoglobin 25.6 pg (28.0-33.3); Mean Corpuscular Volume 81.5 fL (83.0-100.0); Monocytes # 0.8 K/mcL (0.0-1.3); Monocytes % 12.4 %; Neutrophils # 4.7 K/mcL (1.6-8.9); Platelet Count 316 K/mcL (140-400); Red Blood Count 3.63 M/mcL (4.19-5.50); Red Cell Distribution Width 21.9 % (11.5-14.5); Segmented Neutrophils % 74.1 %; White Blood Count 6.3 K/mcL (4.3-11.1)
[2019-06-06 05:16] LABS: INR 1.8; Prothrombin Time 19.9 Seconds (9.4-12.1)
[2019-06-06 05:31] LABS: BUN/Creatinine Ratio 9 (6-26); Blood Urea Nitrogen 8 mg/dL (8-23); Calcium 8.8 mg/dL (8.6-10.3); Carbon Dioxide 20 mEq/L (23-29); Chloride 109 mEq/L (98-107); Glucose 101 mg/dL (70-105); Osmolality,Calculated 282 (280-300); Potassium 3.7 mEq/L (3.5-5.1); Sodium 137 mEq/L (136-145); eGFR For African Americans > 60 (> 60); eGFR For Non-African Americans > 60 (> 60)
[2019-06-06] MEDS ORDERED: 0.9 % Sodium Chloride 1,000 ML IVC SCH (05:45)
[2019-06-06] MEDS ORDERED: DAPTOmycin 500 MG VIAL IVP SCH (09:00)
[2019-06-06] MEDS ORDERED: DAPTOmycin 480 MG in 0.9 % Sodium Chloride 100 ML IVPB SCH (09:00)
[2019-06-06] MEDS ORDERED: CloNIDine Patch 0.1 MG PATCH (WEEKLY) TD SCH (17:30)
[2019-06-06] MEDS ORDERED: Mirtazapine 15 MG TABLET PO SCH (21:00)
[2019-06-07 03:58] LABS: Basophils % 0.3 %; Eosinophils # 0.2 K/mcL (0.0-0.6); Eosinophils % 3.7 %; Hematocrit 28.2 % (37.5-50.1); Hemoglobin 8.9 g/dL (12.9-16.9); Immature Granulocytes % 0.7 % (0-4); Lymphocytes # 0.6 K/mcL (0.6-4.6); Lymphocytes % 11.1 %; Mean Corpuscular HGB Conc 31.6 g/dL (31.6-35.5); Mean Corpuscular Hemoglobin 25.9 pg (28.0-33.3); Mean Platelet Volume 9.4 fL (9.4-12.4); Monocytes # 0.6 K/mcL (0.0-1.3); Monocytes % 10.5 %; Neutrophils # 4.2 K/mcL (1.6-8.9); Platelet Count 271 K/mcL (140-400); Red Blood Count 3.44 M/mcL (4.19-5.50); Red Cell Distribution Width 21.9 % (11.5-14.5); Segmented Neutrophils % 73.7 %; White Blood Count 5.7 K/mcL (4.3-11.1)
[2019-06-07 04:20] LABS: BUN/Creatinine Ratio 10 (6-26); Blood Urea Nitrogen 8 mg/dL (8-23); Calcium 8.6 mg/dL (8.6-10.3); Carbon Dioxide 20 mEq/L (23-29); Chloride 111 mEq/L (98-107); Glucose 95 mg/dL (70-105); Magnesium 1.7 mg/dL (1.6-2.6); Osmolality,Calculated 280 (280-300); Potassium 3.2 mEq/L (3.5-5.1); Sodium 136 mEq/L (136-145); eGFR For African Americans > 60 (> 60); eGFR For Non-African Americans > 60 (> 60)
[2019-06-07] MEDS ORDERED: *HR* Enoxaparin 40 MG/0.4 ML SYRINGE SQ SCH (07:00)
[2019-06-07] MEDS ORDERED: amLODIPine 5 MG TABLET PO SCH (09:00)
[2019-06-07] MEDS ORDERED: Aspirin Enteric Coated 81 MG Tablet PO SCH (09:00)
[2019-06-07] MEDS ORDERED: Metoprolol XL (24 HR) Succ 50 MG TAB.ER.24H PO SCH (09:00)
[2019-06-07 10:35] VITALS: BP 120/73
== END 2019-06-07 14:09 | disposition hospice, home (50) ==
LOC: 2ANU → SUATTDRO 16:02
PROVIDERS: ADMIT Internal Medicine; ATTEND Pharmacist